=== PATIENT | male | born 1950 | race Caucasian/White ===

== ENCOUNTER → 2017-10-07 11:28 | Outpatient (CLI) | payer MEDICARE, SELFPAY ==
--- NOTE | 2017-10-07 | DI.MRI.S_ITS ---
PROCEDURE: MR ABDOMEN WO/W CON INDICATIONS: 67-year-old male with hepatocellular carcinoma status post treatment. TECHNIQUE: Coronal HASTE, axial 2D FLASH in- and [id number]; axial breath-hold T2 FSE. Dynamic axial VIBE during the administration of contrast; post-contrast coronal VIBE or 2D FLASH with fat saturation from the hepatic dome to the iliac crests. Optional diffusion weighted imaging and ADC may be performed. COMPARISON: Outside Facility, RG, MRI ABDOMEN W/W/O CONTRAST, 05/07/2017, 12:17. Outside Facility, RG, MRI ABDOMEN W/W/O CONTRAST, 01/08/2017, 10:26. Outside Facility, RG, MRI ABDOMEN W/W/O CONTRAST, 10/02/2016, 8:14. FINDINGS: Image quality: Several sequences are degraded by respiratory motion. Lung bases: No basal pleural effusions. Heart size is normal. Solid organs: Liver is normal in size, without fatty infiltration on in and out of phase images. There is mild capsular scalloping consistent with cirrhosis. 2.7 x 2.1 cm subcapsular anterior left hepatic lobe lesion in segment 4A/4B is unchanged in appearance with overlying capsular retraction, demonstrating no suspicious internal nodular enhancement on dynamic images. There is surrounding amorphous progressive enhancement on delayed images, presumably from post treatment fibrosis. No new hypervascular or hypovascular lesions elsewhere in the liver. Gallbladder contains a 9 mm dependent gallstone. Biliary system is non dilated. Pancreas is normal in morphology. Moderate splenomegaly is not significantly changed, measuring 16.4 cm in craniocaudal dimensions. No adrenal nodules. Both kidneys demonstrate normal size and symmetric enhancement, without hydronephrosis. 9 mm posterior left renal cortical exophytic cyst is incidentally noted. Nodes and vessels: No retroperitoneal or mesenteric adenopathy by size criteria. Aorta and inferior vena cava are normal in size. Portal and splenic veins appear patent and normal in caliber, without intraluminal thrombus. Bowel and peritoneum: Unenhanced bowel loops are normal in caliber. No free fluid. Bones and soft tissues: No ventral hernias. Bone marrow is normal in overall signal. IMPRESSION: 1. 2.7 x 2.1 cm anterior left hepatic lobe segment 4A/4B lesion is not significantly changed, demonstrating no suspicious internal nodular enhancement to suggest local tumor recurrence. ACR LI-RADS TR (treatment response) nonviable: Consider continued followup with liver protocol pre- and post contrast MRI in 3-6 months. 2. Moderate splenomegaly is unchanged, consistent with portal hypertension. 3. 9 mm dependent gallstone. Dictated by: Mart Rodriguez M.D. on 10/13/2017 at 15:07 Approved by: Mart Rodriguez M.D. on 10/13/2017 at 15:27
== END ==
PROVIDERS: Visit Provider Family Medicine
DX: C22.0 Liver cell carcinoma (principal); K76.6 Portal hypertension; K80.80 Other cholelithiasis without obstruction
CPT/HCPCS: 74183; A9579

== ENCOUNTER 2018-03-12 15:24 | Emergency (ER) | payer MEDICARE, SELFPAY ==
[2018-03-12 15:27] VITALS: BP 165/76; PULSE 58; RESP 14; TEMP 36.4; O2SAT 96; BMI 39.6
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
--- NOTE | 2018-03-12 16:08 | DI.US.S_ITS ---
PROCEDURE: US PERIPH VENOUS LOW EXTREM RT INDICATIONS: posterior medial ankle pain, r/o DVT TECHNIQUE: Real-time imaging, as well as color and pulse Doppler interrogation, were performed of the lower extremity deep veins from the inguinal ligament to the popliteal fossa. COMPARISON: None. FINDINGS: The deep veins are normally compressible, and free of intraluminal thrombus. Color and pulse Doppler demonstrate normal phasic intraluminal flow. There is normal augmentation response to distal compression maneuver. IMPRESSION: Negative for deep venous thrombosis. Note: Concordant preliminary findings given by the linter drier operator upon the completion of the examination to Svitlana Abdi PA-C at 1715 hrs. [place] time on March 12, 2018. Dictated by: Chris Wiley M.D. on 03/12/2018 at 16:19 Approved by: Chris Wiley M.D. on 03/12/2018 at 16:22
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
[2018-03-12 17:22] VITALS: BP 168/78; PULSE 60; RESP 18; TEMP 37.2; O2SAT 97
--- NOTE | 2018-03-15 13:48 | PC.NURSE ---
Called patient in follow up. Pt has no concerns or questions. Feels improved. Encouraged to f/u as needed and indicated and return for any difficulty or concerns. Encouraged to f/u as needed and indicated and return for any needs.
== END 2018-03-12 18:12 | disposition home or self-care (01) ==
PROVIDERS: Emergency Provider Internal Medicine
DX: I87.301 Chronic venous hypertension (idiopathic) without complications of right lower extremity (principal); M79.671 Pain in right foot
CPT/HCPCS: 73630; 93971; 99282; 99284

== ENCOUNTER → 2018-05-28 12:37 | Outpatient (CLI) | payer MEDICARE, SELFPAY ==
--- NOTE | 2018-05-28 | DI.MRI.S_ITS ---
PROCEDURE: MR ABDOMEN WO/W CON INDICATIONS: Liver cell carcinoma TECHNIQUE: Coronal HASTE, axial 2D FLASH in- and [id number]; axial breath-hold T2 FSE. Dynamic axial VIBE during the administration of contrast; post-contrast coronal VIBE or 2D FLASH with fat saturation from the hepatic dome to the iliac crests. Optional diffusion weighted imaging and ADC may be performed. COMPARISON: None. FINDINGS: Image quality: Excellent. Lung bases: No basal pleural effusions. Heart size is normal. Solid organs: The liver is nodular in contour with heterogeneous appearance of the hepatic parenchyma consistent with cirrhosis. There is a small oval region of T2 hypointensity and mild T1 hyperintensity involving segment 4A/4B measuring approximately 2.7 x 1.8 cm in transverse dimension by 2.5 cm in craniocaudal dimension. Following contrast administration, there is no evidence of internal enhancement. There is adjacent mild vascular shunting within the hepatic parenchyma without discreet masslike components or suspicious areas of washout. Elsewhere the liver, no new mass lesions or suspicious washout identified. The spleen is enlarged, measuring 16.8 cm consistent with portal hypertension. There is a small nonenhancing filling defect in the region of the gallbladder neck compatible with a gallstone. No wall thickening or pericholecystic fluid to suggest cholecystitis. Biliary system is non dilated. Pancreas is normal in morphology. No adrenal nodules. Kidneys demonstrate no hydronephrosis. Nodes and vessels: No retroperitoneal or mesenteric adenopathy by size criteria. Aorta and inferior vena cava are normal in size. There are gastroesophageal and splenic varices as well as a recanalized paraumbilical vein consistent with portal hypertension. Bowel and peritoneum: Visualized bowel loops are normal in caliber. No free fluid. Bones and soft tissues: No ventral hernias. Bone marrow is normal in overall signal. IMPRESSION: 1. Post treatment changes redemonstrated in segment 4 of the left hepatic lobe without evidence of recurrent disease. 2. Nodular cirrhotic liver redemonstrated without evidence of a new hepatoma. 3. Findings consistent of portal hypertension redemonstrated including splenomegaly, gastroesophageal splenic varices, and a recanalized paraumbilical vein. Dictated by: Naren Anglin M.D. on 05/28/2018 at 14:56 Approved by: Naren Anglin M.D. on 05/28/2018 at 15:36
== END ==
PROVIDERS: PCP Radiology Diagnostic Radiology; Visit Provider Radiology Diagnostic Radiology
DX: C22.0 Liver cell carcinoma (principal); K76.6 Portal hypertension; K74.60 Unspecified cirrhosis of liver; I86.4 Gastric varices; I86.8 Varicose veins of other specified sites; R16.1 Splenomegaly, not elsewhere classified
CPT/HCPCS: 74183; A9579

== ENCOUNTER 2020-03-09 08:48 | Emergency (ER) | payer MEDICARE, SELFPAY ==
[2020-03-09] VITALS (20 sets, daily range): BP systolic 155–173; BP diastolic 67–79; PULSE 52–69; RESP 16–27; TEMP 36.7; O2SAT 93–97; BMI 44.3
--- NOTE | 2020-03-09 09:19 | DI.RAD.S_ITS ---
PROCEDURE: XR CHEST 2V INDICATIONS: shortness of breath TECHNIQUE: 2 views of the chest were acquired. COMPARISON: None. FINDINGS: Surgical changes and devices: None. Lungs and pleura: Minimal blunting of the posterior costophrenic angles can be seen. Generalized interstitial prominence is seen. No focal infiltrates are seen. Low lung volumes are noted. This causes a crowded appearance to the lung markings and limits evaluation. Mediastinum: Mediastinal contours are normal. Heart size is at the upper limits of normal. Bones and chest wall: No suspicious bony abnormalities. Age-appropriate bony degenerative changes are seen. Soft tissues appear unremarkable. IMPRESSION: Interstitial prominence and trace bilateral pleural effusions. The heart size is at the upper limits of normal. Please correlate with patient presentation, physical examination findings, and laboratory values for congestive heart failure. Dictated by: Chris Wiley M.D. on 03/09/2020 at 8:44 Approved by: Chris Wiley M.D. on 03/09/2020 at 8:46
[2020-03-09 09:27] LABS: Add Manual Diff / Slide Review NO; Basophils Absolute Auto 0 /uL (0-100); Basophils Percent Auto 0.4 % (0-2); Eosinophils Absolute Auto 100 /uL (0-450); Eosinophils Percent Auto 4.6 % (2-4); Hematocrit 41.9 % (41-53); Hemoglobin 13.7 g/dL (13.5-17.5); Lymphocytes Absolute Auto 600 /uL (1100-4500); Lymphocytes Percent Auto 19.3 % (25-40); Mean Corpuscular HGB Conc 32.7 % (30-36); Mean Corpuscular Hemoglobin 26.9 PG (26-34); Mean Corpuscular Volume 82.3 fL (80-100); Monocytes Absolute Auto 300 /uL (0-900); Monocytes Percent Auto 11.6 % (3-14); Neutrophils Absolute Auto 1900 /uL (1500-7000); Neutrophils Percent Auto 64.1 % (50-75); Platelet Count 61 X10^3/uL (150-400); Red Blood Cell Count 5.09 X10^6/uL (4.5-5.9); White Blood Cell Count 2.9 X10^3/uL (4.5-11.0)
--- NOTE | 2020-03-09 09:27 | PC.NURSE ---
pt has hx of Liver CA for 5 years with cirrhosis, here with new onset ascites over the past month which is causing increasing SOB and weight gain, 20# in the last month
[2020-03-09 09:33] LABS: Alanine Aminotransferase 46 IU/L (<50); Albumin Globulin Ratio 1.3 (1.0-2.8); Alkaline Phosphatase 67 U/L (38-126); Aspartate Aminotransferase 69 IU/L (17-59); BUN Creatinine Ratio 27.8 (6-22); Bilirubin Total 1.3 mg/dL (0.2-1.3); Blood Urea Nitrogen 22 mg/dL (9-20); Calcium 9.7 mg/dL (8.4-10.2); Carbon Dioxide 38 mmol/L (22-32); Chloride 103 mmol/L (98-107); Estimated Glomerular Filt Rate > 60.0 mL/min (>60); Globulin 3.1 g/dL (1.7-4.1); Glucose 64 mg/dL (80-110); HEMOLYSIS < 15 (0-50); Sodium 142 mmol/L (137-145); Total Protein 7.1 g/dL (6.3-8.2)
--- NOTE | 2020-03-09 09:33 | DI.CT.S_ITS ---
PROCEDURE: CT CHEST ABD PEL W CON INDICATIONS: ascites with hepatocellular carcinoma and sob TECHNIQUE: After the administration of intravenous contrast, 5 mm thick sections acquired from the lung apices to the symphysis. 5 mm coronal and sagittal reformats were performed, with additional 7 mm MIP reformats through the lungs. For radiation dose reduction, the following was used: automated exposure control, adjustment of mA and/or kV according to patient size. COMPARISON: [facility], , MR ABDOMEN LIVER PROTOCOL, 01/09/2020, 12:28. FINDINGS: Image quality: Excellent. CHEST: Lungs and pleura: No acute airspace opacities. Minimal bibasilar dependent change. No pleural effusions or pneumothorax. Central and peripheral airways appear patent and normal in caliber. Mediastinum: Heart size is normal. No pericardial effusion. Coronary artery calcifications. No mediastinal or hilar adenopathy by size criteria. Thoracic aorta and central pulmonary arteries are normal in size. Esophagus is normal in caliber. No hiatal hernia. Chest wall: No axillary or supraclavicular adenopathy by size criteria. Thyroid gland is unremarkable as visualized. ABDOMEN: Solid organs: Diffuse cirrhotic change of the liver. Hypodensity in the anterior segment 4A/4 B tumor ablation site. This has been described is stable over multiple studies, and is not significantly changed in size from the most recent prior MRI. Gallbladder contains tiny stones.. Biliary system is non dilated. Pancreas enhances normally. Splenomegaly. No adrenal nodules. Kidneys demonstrate normal size and enhancement, without hydronephrosis. Peritoneum and bowel: Bowel loops demonstrate normal wall thickness and caliber. Mild abdominal and pelvic ascites. Nodes and vessels: No retroperitoneal or mesenteric adenopathy by size criteria. Aorta and inferior vena cava are normal in size. There are perisplenic varicosities and evidence of a spontaneous splenorenal shunt. Miscellaneous: No ventral hernias. PELVIS: Genitourinary: Bladder wall thickness is normal. Miscellaneous: No inguinal hernias or adenopathy. Bones: No suspicious bony lesions. No vertebral body compression fractures. IMPRESSION: 1. No evidence acute pulmonary process. 2. Cirrhosis. 3. Stable size of previously treated liver lesion. 4. Mild ascites. 5. Splenomegaly. 6. Varicosities with spontaneous splenorenal shunt. 7. Coronary artery disease. Dictated by: Christopher Sanchez M.D. on 03/09/2020 at 10:46 Approved by: Christopher Sanchez M.D. on 03/09/2020 at 10:56
[2020-03-09 09:34] LABS: Lactate (Lactic Acid) 1.4 mmol/L (0.7-2.1)
--- NOTE | 2020-03-09 09:44 | ED.SOB ---
HPI - SOB/Dyspnea General Chief Complaint: Shortness of Breath/Dyspnea Stated Complaint: ascites Time Seen by Provider: 03/09/20 09:05 Source: patient Mode of arrival: Ambulatory Limitations: no limitations History of Present Illness HPI Narrative: Patient is a 69-year-old male with history of hepatocellular carcinoma, diabetes presenting with 1 month of worsening shortness of breath. He says it is worse with exertion and when he leans forward. He has noticed 20 lb weight gain over the last 1 month as well in his abdomen feels tight. He denies any chest pain fever or cough. He was sent over from the located within [facility] concern for ascites. He also complains of difficulty emptying his bladder. He says it is getting harder. He says he is able to go the does not feel like it is emptying properly. MD Complaint: shortness of breath Related Data Home oxygen amount: none Home Medications Medication Instructions Recorded Confirmed Vitamin C 1 tab PO DAILY 03/12/18 02/09/20 diphenhydramine HCl [Benadryl] 1 cap PO QPM PRN 03/12/18 02/09/20 insulin glargine [Lantus U-100 100 units SUBCUT QPM 03/12/18 02/09/20 Insulin] melatonin 1 tab PO BEDTIME PRN 03/12/18 02/09/20 metformin 500 mg PO BID 03/12/18 02/09/20 pioglitazone 30 mg PO DAILY 03/12/18 02/09/20 insulin lispro 100 unit/mL 50 unit SUBCUT BID ml 02/09/20 02/09/20 subcutaneous solution naproxen sodium 220 mg capsule 440 mg PO DAILY PRN cap 02/09/20 02/09/20 Previous Rx's Medication Instructions Recorded furosemide [Lasix] 40 mg PO DAILY #3 tab 03/09/20 Allergies Allergy/AdvReac Type Severity Reaction Status Date / Time [id number] Reductase AdvReac Intermediate Muscle Verified 02/09/20 14:00 Inhibitor Pain. Itchiness Review of Systems Review of Systems ROS Unobtainable: All systems reviewed & are unremarkable except as noted in HPI and below Constitutional Constitutional: Denies chills, Denies fever(s), Denies lethargy and Denies weakness Eyes Eyes: Denies change in vision, Denies eye discharge, Denies irritation and Denies loss of vision ENT Ears, Nose, Mouth, and Throat: Denies neck pain Cardiovascular Cardiovascular: Denies chest pain, Denies irregular heart rhythm, Denies lightheadedness, Denies palpitations and Denies orthopnea Respiratory Respiratory: Reports as per HPI Gastrointestinal Gastrointestinal: Denies constipation and Denies nausea Musculoskeletal Musculoskeletal: Denies myalgias and Denies neck pain Integumentary/Breasts Skin/Breast: Denies pruritus, Denies erythema, Denies rash and Denies wounds Neurologic Neurologic: Denies loss of vision and Denies weakness Endocrine Endocrine: Denies palpitations Patient History Medical History (Updated 03/09/20 @ 13:28 by Dinora Willingham DO) Calculus of gallbladder and bile duct w/o cholecystitis or obstruction (Chronic) Cataracts, bilateral (Chronic) Cirrhosis, non-alcoholic (Chronic) Class 2 obesity (Chronic) Diabetes type 2, controlled (Chronic) Diabetic polyneuropathy (Chronic) Diastasis recti (Chronic) Hepatocellular carcinoma (Chronic) Hypertension (Resolved) Iron deficiency anemia (Chronic) Major depression in remission (Resolved) Microalbuminuria due to type 2 diabetes mellitus (Chronic) RICARDO (obstructive sleep apnea) (Chronic) Thoracic radiculitis (Chronic) Thrombocytopenia (Chronic) 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 HEENT: Head atraumatic,EOMI, pupils reactive, face symmetric, moist mucous membranes CARDIOVASCULAR: Regular rate and rhythm without murmurs, rubs or gallops. RESPIRATORY: Breath sounds equal bilaterally, no wheezes rales or rhonchi. ABDOMEN: Abdomen is tight and distended EXTREMITIES: Normal range of motion, no clubbing or edema. Neurovascularly intact NEUROLOGICAL: Alert and oriented x4.Normal gait and speech. Cranial nerves II through XII grossly intact. SKIN: Warm, dry, no laceration, no petechiae, no rashes or lesions. Course Orders Ordered: ED Orders 03/09/20 09:10 Complete Blood Count AUTO DIFF Stat Comprehensive Metabolic Panel Stat Lactate (Lactic Acid) Stat NT-proBNP (BNP-Adult 18+) Stat Partial Thromboplastin Time Stat Prothrombin Time INR Stat Troponin & CK Cardiac Panel Stat 03/09/20 09:19 XR chest 2V Stat EKG-12 Lead Stat Measure peak expiratory flow ONCE RT Consult Eval and Treat Now 03/09/20 09:33 CT chest abd pel w con Stat 03/09/20 11:55 COVID19 -ED/INPAT/OR/L&D Stat Discontinued Medications Furosemide (Lasix) 40 mg IV NOW ONE Stop: 03/09/20 11:45 Last Admin: 03/09/20 11:50 Dose: 40 mg Documented by: YOLI Consultations Time: 13:01 Vital Signs Vital signs: Vital Signs - 8 hr 03/09/20 08:58 03/09/20 09:02 03/09/20 09:03 Temperature 98.1 F Pulse Rate 69 54 L 54 L Respiratory Rate 18 19 24 Blood Pressure 166/77 H 167/79 H Pulse Oximetry 93 03/09/20 09:30 03/09/20 10:00 03/09/20 10:04 Temperature Pulse Rate 57 L 52 L 52 L Respiratory Rate 27 H 21 23 Blood Pressure 155/67 H Pulse Oximetry 95 95 95 03/09/20 10:43 03/09/20 10:44 03/09/20 11:00 Temperature Pulse Rate 60 58 L 56 L Respiratory Rate Blood Pressure 165/75 H Pulse Oximetry 96 97 96 03/09/20 11:30 03/09/20 11:31 03/09/20 12:00 Temperature Pulse Rate 55 L 56 L 57 L Respiratory Rate 24 22 23 Blood Pressure 166/73 H Pulse Oximetry 96 96 97 03/09/20 12:01 03/09/20 12:30 03/09/20 12:31 Temperature Pulse Rate 59 L 60 60 Respiratory Rate 25 H 16 16 Blood Pressure 173/77 H 172/74 H Pulse Oximetry 97 95 95 03/09/20 13:00 03/09/20 13:01 03/09/20 13:27 Temperature Pulse Rate 56 L 60 Respiratory Rate 23 21 18 Blood Pressure 158/70 H Pulse Oximetry 97 97 97 03/09/20 13:30 03/09/20 13:31 Temperature Pulse Rate 57 L 54 L Respiratory Rate 22 25 H Blood Pressure 160/71 H Pulse Oximetry 96 97 MDM - SOB/Dyspnea Lab Data Attestation: I reviewed the patient's lab results. Result diagrams: 03/09/20 09:10 03/09/20 09:10 Labs: Lab Results 03/09/20 03/09/20 03/09/20 Range/Units 09:10 09:10 09:10 WBC 2.9 L (4.5-11.0) X10^3/uL RBC 5.09 (4.5-5.9) X10^6/uL Hgb 13.7 (13.5-17.5) g/dL Hct 41.9 (41-53) % MCV 82.3 (80-100) fL MCH 26.9 (26-34) PG MCHC 32.7 (30-36) % RDW 16.0 H (11.6-14.8) % Plt Count 61 L (150-400) X10^3/uL Neut % (Auto) 64.1 (50-75) % Lymph % (Auto) 19.3 L (25-40) % [place] % (Auto) 11.6 (3-14) % Eos % (Auto) 4.6 H (2-4) % Baso % (Auto) 0.4 (0-2) % Neut # (Auto) 1900 (1049-5247) /uL Lymph # (Auto) 600 L (3615-8445) /uL [place] # (Auto) 300 (0-900) /uL Eos # (Auto) 100 (0-450) /uL Baso # (Auto) 0 (0-100) /uL PT (10.1-12.7) SECONDS INR (0.9-1.3) APTT (26.4-36.2) SECONDS Sodium 142 (137-145) mmol/L Potassium 4.0 (3.4-5.1) mmol/L Chloride 103 (98-107) mmol/L Carbon Dioxide 38 H (22-32) mmol/L BUN 22 H (9-20) mg/dL Creatinine 0.79 (0.66-1.25) mg/dL Estimated GFR > 60.0 (>60) mL/min BUN/Creatinine Ratio 27.8 H (6-22) Glucose 64 L (80-110) mg/dL Lactate 1.4 (0.7-2.1) mmol/L Calcium 9.7 (8.4-10.2) mg/dL Total Bilirubin 1.3 (0.2-1.3) mg/dL AST 69 H (17-59) IU/L ALT 46 (<50) IU/L Alkaline Phosphatase 67 (38-126) U/L Total Creatine Kinase (55-170) U/L CK-MB (CK-2) (<2.37) ng/mL CK-MB (CK-2) Rel Index (1.5-5.0) % Troponin I (0.01-0.034) ng/mL NT-Pro-B Natriuret Pep (<125) pg/mL Total Protein 7.1 (6.3-8.2) g/dL Albumin 4.0 (3.5-5.0) g/dL Globulin 3.1 (1.7-4.1) g/dL Albumin/Globulin Ratio 1.3 (1.0-2.8) COVID-19 PCR (Negative) 03/09/20 03/09/20 03/09/20 Range/Units 09:10 09:10 11:55 WBC (4.5-11.0) X10^3/uL RBC (4.5-5.9) X10^6/uL Hgb (13.5-17.5) g/dL Hct (41-53) % MCV (80-100) fL MCH (26-34) PG MCHC (30-36) % RDW (11.6-14.8) % Plt Count (150-400) X10^3/uL Neut % (Auto) (50-75) % Lymph % (Auto) (25-40) % [place] % (Auto) (3-14) % Eos % (Auto) (2-4) % Baso % (Auto) (0-2) % Neut # (Auto) (5152-6825) /uL Lymph # (Auto) (2156-2898) /uL [place] # (Auto) (0-900) /uL Eos # (Auto) (0-450) /uL Baso # (Auto) (0-100) /uL PT 13.9 H (10.1-12.7) SECONDS INR 1.2 (0.9-1.3) APTT 39 H (26.4-36.2) SECONDS Sodium (137-145) mmol/L Potassium (3.4-5.1) mmol/L Chloride (98-107) mmol/L Carbon Dioxide (22-32) mmol/L BUN (9-20) mg/dL Creatinine (0.66-1.25) mg/dL Estimated GFR (>60) mL/min BUN/Creatinine Ratio (6-22) Glucose (80-110) mg/dL Lactate (0.7-2.1) mmol/L Calcium (8.4-10.2) mg/dL Total Bilirubin (0.2-1.3) mg/dL AST (17-59) IU/L ALT (<50) IU/L Alkaline Phosphatase (38-126) U/L Total Creatine Kinase 229 H (55-170) U/L CK-MB (CK-2) 4.22 H (<2.37) ng/mL CK-MB (CK-2) Rel Index 1.8 (1.5-5.0) % Troponin I < 0.012 (0.01-0.034) ng/mL NT-Pro-B Natriuret Pep 105 (<125) pg/mL Total Protein (6.3-8.2) g/dL Albumin (3.5-5.0) g/dL Globulin (1.7-4.1) g/dL Albumin/Globulin Ratio (1.0-2.8) COVID-19 PCR Negative (Negative) Point of Care Testing Glucose POC [address] scan - abdomen/pelvis: Radiologist's Impression: PROCEDURE: CT CHEST ABD PEL W CON INDICATIONS: ascites with hepatocellular carcinoma and sob TECHNIQUE: After the administration of intravenous contrast, 5 mm thick sections acquired from the lung apices to the symphysis. 5 mm coronal and sagittal reformats were performed, with additional 7 mm MIP reformats through the lungs. For radiation dose reduction, the following was used: automated exposure control, adjustment of mA and/or kV according to patient size. COMPARISON: [facility], MR, MR ABDOMEN LIVER PROTOCOL, 01/09/2020, 12:28. FINDINGS: Image quality: Excellent. CHEST: Lungs and pleura: No acute airspace opacities. Minimal bibasilar dependent change. No pleural effusions or pneumothorax. Central and peripheral airways appear patent and normal in caliber. Mediastinum: Heart size is normal. No pericardial effusion. Coronary artery calcifications. No mediastinal or hilar adenopathy by size criteria. Thoracic aorta and central pulmonary arteries are normal in size. Esophagus is normal in caliber. No hiatal hernia. Chest wall: No axillary or supraclavicular adenopathy by size criteria. Thyroid gland is unremarkable as visualized. ABDOMEN: Solid organs: Diffuse cirrhotic change of the liver. Hypodensity in the anterior segment 4A/4 B tumor ablation site. This has been described is stable over multiple studies, and is not significantly changed in size from the most recent prior MRI. Gallbladder contains tiny stones.. Biliary system is non dilated. Pancreas enhances normally. Splenomegaly. No adrenal nodules. Kidneys demonstrate normal size and enhancement, without hydronephrosis. Peritoneum and bowel: Bowel loops demonstrate normal wall thickness and caliber. Mild abdominal and pelvic ascites. Nodes and vessels: No retroperitoneal or mesenteric adenopathy by size criteria. Aorta and inferior vena cava are normal in size. There are perisplenic varicosities and evidence of a spontaneous splenorenal shunt. Miscellaneous: No ventral hernias. PELVIS: Genitourinary: Bladder wall thickness is normal. Miscellaneous: No inguinal hernias or adenopathy. Bones: No suspicious bony lesions. No vertebral body compression fractures. IMPRESSION: 1. No evidence acute pulmonary process. 2. Cirrhosis. 3. Stable size of previously treated liver lesion. 4. Mild ascites. 5. Splenomegaly. 6. Varicosities with spontaneous splenorenal shunt. 7. Coronary artery disease. Dictated by: Christopher Sanchez M.D. on 03/09/2020 at 10:46 Chest x-ray: Radiologist's Impression: PROCEDURE: XR CHEST 2V INDICATIONS: shortness of breath TECHNIQUE: 2 views of the chest were acquired. COMPARISON: None. FINDINGS: Surgical changes and devices: None. Lungs and pleura: Minimal blunting of the posterior costophrenic angles can be seen. Generalized interstitial prominence is seen. No focal infiltrates are seen. Low lung volumes are noted. This causes a crowded appearance to the lung markings and limits evaluation. Mediastinum: Mediastinal contours are normal. Heart size is at the upper limits of normal. Bones and chest wall: No suspicious bony abnormalities. Age-appropriate bony degenerative changes are seen. Soft tissues appear unremarkable. IMPRESSION: Interstitial prominence and trace bilateral pleural effusions. The heart size is at the upper limits of normal. Please correlate with patient presentation, physical examination findings, and laboratory values for congestive heart failure. Dictated by: Chris Wiley M.D. on 03/09/2020 at 8:44 ECG Data Attestation: I personally reviewed and interpreted this ECG as follows: Prior ECG tracings: not available for review Interpretation: Normal sinus rhythm rate 53 p.r. interval 212 QRS 88 QTC [address] changes no priors to compare MDM Narrative Medical decision making narrative: Current differential it is [facility] verses ascites. His abdomen is actually quite firm. It CT shows only mild ascites. BNP is 100 he is satting 93-97%. His ambulation trial he did well. He responded well to Lasix. Previous nuclear stress test in July of 2019 showed an EF of 77%. I discussed case with Dr. Tovar who at this time request patient be followed up as an outpatient with Lasix and in outpatient echocardiogram. Patient understands and agrees with this plan and also agrees to return to the ED as needed I discussed all findings with the patient , Education has been performed regarding treatment plan, diagnosis, warning signs and symptoms and all concerns have been addressed. Verbally agree with and understood all of the above. Discharge Plan Departure Patient Disposition: Home Clinical Impression: Congestive heart failure Qualifiers: Heart failure type: unspecified Heart failure chronicity: acute Qualified Code(s): I50.9 - Heart failure, unspecified Discharge Date/Time: 03/09/20 13:53 Instructions: DI for Heart Failure Activity Restrictions/Additional Instructions: *You have been diagnosed with congestive heart failure *What to do: At this time I believe her abdominal distention is due to water retention secondary to congestive heart failure. However you do need an echocardiogram to confirm this. I have spoken with Dr. Tovar, Dr. Glaser his partner who should be scheduling you and echocardiogram for next week *Continue to take medications as directed Lasix 40 mg once a day for the next 3 days-start tomorrow *Follow up with your primary care provider in 2-3 days *Return to ER if you should have increasing shortness of breath, chest pain or any new, worsening or concerning symptoms Prescriptions: New furosemide [Lasix] 40 mg tablet 40 mg PO DAILY Qty: 3 RF: 0 No Action insulin lispro 100 unit/mL solution 50 unit SUBCUT BID RF: 0 naproxen sodium 220 mg capsule 440 mg PO DAILY PRNRF: 0 metformin 500 mg tablet 500 mg PO BID RF: 0 insulin glargine [Lantus U-100 Insulin] 100 unit/mL solution 100 units subcut QPM RF: 0 diphenhydramine HCl [Benadryl] 25 mg Capsule 1 cap PO QPM PRN (Reason: Sleep) RF: 0 pioglitazone 30 mg tablet 30 mg PO DAILY RF: 0 Vitamin C 1 tab PO DAILY RF: 0 melatonin 1 tab PO BEDTIME PRN (Reason: Sleep) RF: 0 Referrals: Christian Glaser MD [Primary Care Provider] -
[2020-03-09 11:21] LABS: INR 1.2 (0.9-1.3); Prothrombin Time 13.9 SECONDS (10.1-12.7)
[2020-03-09 11:23] LABS: PTT Partial Thromboplastin Tim 39 SECONDS (26.4-36.2)
[2020-03-09 11:24] LABS: Creatine Kinase 229 U/L (55-170)
[2020-03-09 11:37] LABS: NT-proBNP (BNP-Adult 18+) 105 pg/mL (<125); Troponin I < 0.012 ng/mL (0.01-0.034)
[2020-03-09 11:40] LABS: CKMB % Relative Index 1.8 % (1.5-5.0); Creatine Kinase MB 4.22 ng/mL (<2.37)
[2020-03-09] MEDS: FUROSEMIDE 40 MG/4 ML VIAL IV (11:50)
[2020-03-09 12:30] LABS: COVID19 -Nasal RAPID Negative (Negative)
== END 2020-03-09 13:53 | disposition home or self-care (01) ==
PROVIDERS: Emergency Provider Emergency Medicine; PCP Internal Medicine
DX: I50.9 Heart failure, unspecified (principal); R06.02 Shortness of breath; R18.8 Other ascites
CPT/HCPCS: 36415; 71046; 71260; 74177; 80053; 82550; 82553; 82962; 83605; 83880; 84484; 85025; 85610; 85730; 87635; 93005; 93010; 96374; 99284; J1940

== ENCOUNTER → 2020-04-02 14:11 | Outpatient (CLI) | payer MEDICARE, SELFPAY ==
--- NOTE | 2020-04-02 14:13 | DI.ECHO.S_ITS ---
[facility] +---------+ : : [address] : : : : [id number] : : : : Phone: [phone]+ Echocardiogram Report + + :Name: JUNA CARLOS COFFEY Study Date: 04/02/2020 Height: 72 in : :[facility] Weight: 315 lb : : Gender: Male BSA: 2.6 m2 : :: 1950 Age: 69 yrs BP: 178/91 mmHg: :Reason For Study: SHORTNESS OF BREATH : :Ordering Physician: AARON ALVARADOPerformed By: Kylah Deluna : :Referring: AARON ALVARADO : + + Interpretation Summary Mild concentric left ventricular hypertrophy with hyperdynamic function and ejection fraction 70-75%. The aortic valve is mildly calcified. Mild mitral annular calcification. No valvular regurgitation. Low intravascular volume. Procedure: A two-dimensional transthoracic echocardiogram with color flow and Doppler was performed. The study quality was technically adequate. There is no prior echocardiogram noted for this patient. The patient was in sinus rhythm with heart rates between 64-78 bpm during the exam. Left Ventricle: The left ventricle is normal in size and wall thickness. There is mild concentric left ventricular hypertrophy. The left ventricle is hyperdynamic. The ejection fraction is estimated to be 70-75%. There are no focal wall motion abnormalities. Right Ventricle: The right ventricle is normal in size and function. Atria: Both atria are normal in size. There is no Doppler evidence for an interatrial shunt. Mitral Valve: The mitral valve is normal in structure and function. There is mild mitral annular calcification. There is trace mitral regurgitation. Aortic Valve: The aortic valve is mildly calcified. The aortic valve is trileaflet. The peak aortic velocity is 3.0 m/sec. The aortic valve mean gradient is 20 mmHg. The calculated aortic valve area is 2.0 cm2. No aortic regurgitation is present. Tricuspid Valve: The tricuspid valve is normal in structure and function. There is trace tricuspid regurgitation. Pulmonary artery pressures cannot be estimated because of the lack of a measurable TR jet velocity but the IVC suggests a CVP of around 3 mmHg. Pulmonic Valve: The pulmonic valve is not well seen, but is grossly normal. There is no pulmonic valvular regurgitation. Great Vessels: The aortic root is normal size. The dimensions of the ascending aorta are normal. The IVC is of normal diameter and collapses greater than 50% with a sniff. This suggests a low right atrial pressure of 3 mm Hg. Pericardium/ Pleura There is no pericardial effusion. There is no pleural effusion. MMode/2D Measurements & Calculations LVIDd: 4.9 cm LVOT diam: 2.3 cm LVIDs: 3.1 cm Ao root diam: 3.4 cm FS: 36.5 % asc Aorta Diam: 3.3 cm EPSS: 0.78 cm Ao Arch Diam (Prox Trans): 3.1 cm IVSd: 1.2 cm LVPWd: 1.1 cm LV xavier. diameter/BSA (cm/m^2): 1.9 LV sys. diameter/BSA (cm/m^2): 1.2 LA A2 area: 24.2 cm2 RA long axis: 5.1 cm LA A4 area: 18.4 cm2 RA area: 15.3 cm2 LA length (vol): 5.2 cm RA vol: 39.1 ml LA vol: 72.5 ml RA : 15.1 ml/m2 LA vol index: 28.1 ml/m2 IVC diam: 1.5 cm RVD1 (basal): 4.3 cm TAPSE: 2.5 cm Doppler Measurements & Calculations Ao V2 max: 302.1 cm/sec LVOT Max Chris: 147.8 cm/sec Ao V2 mean: 211.4 cm/sec LV V1 max P.7 mmHg Ao max P.6 mmHg LV V1 VTI: 33.7 cm Ao mean P.4 mmHg MARIO(I,D): 2.0 cm2 Ao V2 VTI: 66.2 cm MARIO(V,D): 2.0 cm2 sev ratio: 0.51 MARIO indexed to BSA (cm^2/m^2): 0.79 MV E max chris: 125.9 cm/sec PA V2 max: 93.8 cm/sec MV A max chris: 119.7 cm/sec PA V2 mean: 61.6 cm/sec MV E/A: 1.1 PA mean P.8 mmHg Med Peak E' Chris: 7.4 cm/sec PA pr(Accel): 15.6 mmHg E/E' med: 17.0 Lat Peak E' Chris: 8.0 cm/sec E/E' lat: 15.7 E/e' average: 16.4 MV dec time: 0.27 sec SV(LVOT): 135.4 ml Electronically signed by: Yu Su on Reading Physician:04/04/2020 11:04 AM
== END ==
PROVIDERS: PCP Internal Medicine; Referring Provider Family Medicine; Visit Provider Family Medicine
DX: R06.02 Shortness of breath (principal)
CPT/HCPCS: 93306

== ENCOUNTER → 2020-04-17 16:49 | Outpatient (CLI) | payer MEDICARE, SELFPAY ==
[2020-04-17 17:48] LABS: NT-proBNP (BNP-Adult 18+) 70 pg/mL (<125)
== END ==
PROVIDERS: PCP Internal Medicine; Referring Provider Internal Medicine; Visit Provider Internal Medicine
DX: I50.9 Heart failure, unspecified (principal)
CPT/HCPCS: 36415; 83880

== ENCOUNTER → 2020-04-18 11:54 | Outpatient (CLI) | payer MEDICARE, SELFPAY ==
[2020-04-18 13:09] LABS: Alanine Aminotransferase 39 IU/L (<50); Albumin 3.7 g/dL (3.5-5.0); Albumin Globulin Ratio 1.2 (1.0-2.8); Alkaline Phosphatase 68 U/L (38-126); Aspartate Aminotransferase 75 IU/L (17-59); BUN Creatinine Ratio 28.4 (6-22); Blood Urea Nitrogen 21 mg/dL (9-20); Calcium 9.6 mg/dL (8.4-10.2); Carbon Dioxide 36 mmol/L (22-32); Chloride 103 mmol/L (98-107); Estimated Glomerular Filt Rate > 60.0 mL/min (>60); Globulin 3.1 g/dL (1.7-4.1); Glucose 60 mg/dL (80-110); HEMOLYSIS < 15 (0-50); Potassium 4.2 mmol/L (3.4-5.1); Sodium 142 mmol/L (137-145); Total Protein 6.8 g/dL (6.3-8.2)
[2020-04-18 13:38] LABS: Thyroid Stimulating Hormone 2.13 uIU/mL (0.47-4.68)
== END ==
PROVIDERS: PCP Internal Medicine; Visit Provider Internal Medicine
DX: E11.29 Type 2 diabetes mellitus with other diabetic kidney complication (principal); E11.65 Type 2 diabetes mellitus with hyperglycemia; K74.60 Unspecified cirrhosis of liver; R80.9 Proteinuria, unspecified
CPT/HCPCS: 80053; 84443

== ENCOUNTER → 2020-04-24 12:43 | Outpatient (CLI) | payer MEDICARE, SELFPAY ==
--- NOTE | 2020-04-24 13:46 | DI.CT.S_ITS ---
PROCEDURE: CT ABDOMEN PELVIS W CON INDICATIONS: Edema legs and abd distention TECHNIQUE: After the administration of oral and intravenous contrast, 5 mm thick sections acquired from the diaphragms to the symphysis. 5 mm thick coronal and sagittal reformats were performed. For radiation dose reduction, the following was used: automated exposure control, adjustment of mA and/or kV according to patient size. COMPARISON: [facility], MR, MR ABDOMEN LIVER PROTOCOL, 01/09/2020, 12:28. [facility], CT, CT CHEST ABD PEL W CON, 03/09/2020, 10:14. FINDINGS: Image quality: Excellent. ABDOMEN: Lung bases: There is a small left pleural effusion. Left basilar opacity may be consolidation or atelectasis.. Heart size is normal. Solid organs: Liver demonstrates nodular contour consistent with cirrhosis. There is a vague 2.8 cm hypodense lesion in segment 4, unchanged. Gallbladder contains gallstones. Biliary system is non-dilated. Pancreas enhances normally. Spleen is moderately enlarged. No adrenal nodules. Kidneys are normal in size and enhancement, without hydronephrosis. Peritoneum and bowel: Stomach, small bowel, and colon loops are normal in caliber and wall thickness. There is a moderate amount of stool in colon. Appendix is normal. There is a moderate amount of free fluid. No free air. Nodes and vessels: No retroperitoneal or mesenteric adenopathy. Aorta and inferior vena cava are normal in caliber. Enlarged splenic vein and left renal vein. There are gastric varices and esophageal varices. The CT findings are consistent with portal hypertension. Miscellaneous: No ventral hernias. PELVIS: Genitourinary: Bladder wall thickness is normal. Miscellaneous: No inguinal hernias or adenopathy. Bones: No suspicious bony lesions. No vertebral body compression fractures. Degenerative changes in lumbar spine. IMPRESSION: 1. Cirrhotic liver. 2. Stable hypodense lesion in segment IV. 3. Portal hypertension with prominent venous collaterals in left upper abdomen. 3. Splenomegaly. 4. Small left pleural effusion with left basilar consolidation or atelectasis. 5. Cholelithiasis. Dictated by: Amber Mathias M.D. on 04/24/2020 at 14:47 Approved by: Amber Mathias M.D. on 04/24/2020 at 15:03
== END ==
PROVIDERS: PCP Internal Medicine; Referring Provider Internal Medicine; Visit Provider Internal Medicine
DX: R60.0 Localized edema (principal); R14.0 Abdominal distension (gaseous); K74.60 Unspecified cirrhosis of liver; K76.6 Portal hypertension; K76.9 Liver disease, unspecified; R16.1 Splenomegaly, not elsewhere classified; J90 Pleural effusion, not elsewhere classified; K80.20 Calculus of gallbladder without cholecystitis without obstruction
CPT/HCPCS: 74177; Q9967

== ENCOUNTER → 2020-06-11 15:08 | Outpatient (CLI) | payer MEDICARE, SELFPAY ==
[2020-06-11 16:54] LABS: Hemoglobin A1C% w Est Avg Glu 6.5 % (4.0-6.0)
[2020-06-11 17:28] LABS: Alanine Aminotransferase 42 IU/L (<50); Albumin 3.3 g/dL (3.5-5.0); Albumin Globulin Ratio 1.2 (1.0-2.8); Alkaline Phosphatase 76 U/L (38-126); Aspartate Aminotransferase 85 IU/L (17-59); BUN Creatinine Ratio 30.3 (6-22); Bilirubin Total 1.2 mg/dL (0.2-1.3); Blood Urea Nitrogen 27 mg/dL (9-20); Calcium 9.3 mg/dL (8.4-10.2); Chloride 91 mmol/L (98-107); Estimated Glomerular Filt Rate > 60.0 mL/min (>60); Globulin 2.8 g/dL (1.7-4.1); Glucose 98 mg/dL (80-110); HEMOLYSIS < 15 (0-50); Magnesium 2.5 mg/dL (1.6-2.3); Sodium 134 mmol/L (137-145); Total Protein 6.1 g/dL (6.3-8.2)
[2020-06-11 18:06] LABS: Potassium 2.5 mmol/L (3.4-5.1)
[2020-06-11 18:07] LABS: Carbon Dioxide 42 mmol/L (22-32)
[2020-06-11 18:17] LABS: INR 1.2 (0.9-1.3); Prothrombin Time 13.8 SECONDS (10.1-12.7)
== END ==
PROVIDERS: PCP Internal Medicine; Referring Provider Internal Medicine; Visit Provider Internal Medicine
DX: C22.0 Liver cell carcinoma (principal); E11.65 Type 2 diabetes mellitus with hyperglycemia; D50.9 Iron deficiency anemia, unspecified; D69.6 Thrombocytopenia, unspecified; H26.9 Unspecified cataract; K74.60 Unspecified cirrhosis of liver
CPT/HCPCS: 36415; 80053; 83036; 83735; 85610

== ENCOUNTER 2020-06-16 15:32 | Inpatient (IN) | payer MEDICARE, SELFPAY ==
[2020-06-16] VITALS (10 sets, daily range): BP systolic 138–175; BP diastolic 65–87; PULSE 75–86; RESP 18–22; TEMP 36.4–36.7; O2SAT 90–99; BMI 34.5
--- NOTE | 2020-06-16 16:17 | PC.NURSE ---
patient is being seen for liver failure and is on potassium and diuretics for his chronic sever ascites. He presents with a verbal relay from his pCp of having low potassium. He reports being extremely short of breathe without exertion. His abd is rigid and distended with fluid leaking from his umbilicus. He has + 2 edema on both extremities and
[2020-06-16 16:29] LABS: Add Manual Diff / Slide Review NO; Basophils Absolute Auto 0 /uL (0-100); Basophils Percent Auto 0.2 % (0-2); Eosinophils Absolute Auto 100 /uL (0-450); Eosinophils Percent Auto 2.5 % (2-4); Hematocrit 36.2 % (41-53); Hemoglobin 11.6 g/dL (13.5-17.5); Lymphocytes Absolute Auto 500 /uL (1100-4500); Lymphocytes Percent Auto 14.4 % (25-40); Mean Corpuscular HGB Conc 31.9 % (30-36); Mean Corpuscular Hemoglobin 25.4 PG (26-34); Mean Corpuscular Volume 79.6 fL (80-100); Monocytes Absolute Auto 400 /uL (0-900); Monocytes Percent Auto 11.7 % (3-14); Neutrophils Absolute Auto 2700 /uL (1500-7000); Neutrophils Percent Auto 71.2 % (50-75); Platelet Count 98 X10^3/uL (150-400); Red Blood Cell Count 4.55 X10^6/uL (4.5-5.9); Red Cell Distribution Width 16.4 % (11.6-14.8); White Blood Cell Count 3.8 X10^3/uL (4.5-11.0)
--- NOTE | 2020-06-16 16:30 | ED_ITS ---
HPI - Recheck/Abnormal Lab/Rx General Chief Complaint: Recheck/Abnormal Lab/Rx Stated Complaint: SERIOUS POTASSIUM SHORTAGE Time Seen by Provider: 06/16/20 16:05 Source: patient Mode of arrival: Wheelchair Limitations: no limitations History of Present Illness HPI narrative: Patient is a 69-year-old male with history of hepatocellular carcinoma diabetes a presenting today with hypokalemia. He has been on diuretic s for ascites Lasix and metolazone. He was seen by oncology new 05/31/2020, he had blood work at that time and potassium was found to be 2.4. His he was followed up with Internal Medicine on 06/11/2020 he had repeat blood work potassium 2.5 his at that time. This week he has had increasing shortness of breath increasing weight gain and worsening abdominal distention. In fact he has some seepage from his abdomen. He denies any fever or chills he denies any orthopnea no cough. He feels like his abdomen is more distended than it was previously. He has been taking his medications as prescribed. MD complaint: abnormal lab Related Data Home Medications Medication Instructions Recorded Confirmed Vitamin C 1 tab PO DAILY 03/12/18 06/11/20 diphenhydramine HCl [Benadryl] 1 cap PO QPM PRN 03/12/18 06/11/20 insulin glargine [Lantus U-100 50 units SUBCUT QPM 03/12/18 06/11/20 Insulin] melatonin 1 tab PO BEDTIME PRN 03/12/18 06/11/20 metformin 500 mg PO BID 03/12/18 06/11/20 pioglitazone 30 mg PO DAILY 03/12/18 06/11/20 insulin lispro 100 unit/mL 50 unit SUBCUT BID ml 02/09/20 06/11/20 subcutaneous solution magnesium 250 mg PO DAILY 05/31/20 06/11/20 multivitamin 1 cap DAILY 05/31/20 06/11/20 Previous Rx's Medication Instructions Recorded furosemide 40 mg tablet 40 mg PO DAILY #90 tab 05/04/20 metolazone 2.5 mg tablet 2.5 mg PO DAILY #30 tab 05/04/20 potassium chloride 20 mEq 60 meq PO BID #180 tab 06/11/20 tablet,extended release spironolactone 50 mg tablet 50 mg PO BID #60 tab 06/12/20 Allergies Allergy/AdvReac Type Severity Reaction Status Date / Time Cvadbbn-Oor-Lud Reductase AdvReac Intermediate Muscle Verified 06/11/20 14:38 Inhibitor Pain. Itchiness Review of Systems Review of Systems ROS Unobtainable: All systems reviewed & are unremarkable except as noted in HPI and below Constitutional Constitutional: Denies chills, Denies fever(s), Denies lethargy and Denies weakness Eyes Eyes: Denies change in vision, Denies eye discharge, Denies irritation and Denies loss of vision ENT Ears, Nose, Mouth, and Throat: Denies dizziness Cardiovascular Cardiovascular: Denies chest pain, Denies syncope, Denies irregular heart rhythm, Reports leg edema, Denies lightheadedness, Denies palpitations, Reports dyspnea on exertion and Denies orthopnea Respiratory Respiratory: Denies chest congestion, Denies cough and Reports dyspnea on exertion Gastrointestinal Gastrointestinal: Reports abdominal pain, Denies dyspepsia, Denies diarrhea, Denies nausea and Denies vomiting Musculoskeletal Musculoskeletal: Denies back pain, Denies myalgias and Denies muscle cramps Integumentary/Breasts Skin/Breast: Denies pruritus, Denies erythema, Denies rash and Denies wounds Neurologic Neurologic: Denies dizziness, Denies syncope, Denies loss of vision and Denies weakness Endocrine Endocrine: Denies palpitations Patient History Medical History (Updated 06/16/20 @ 18:18 by Dinora Willingham DO) Calculus of gallbladder and bile duct w/o cholecystitis or obstruction Cataracts, bilateral Cirrhosis, non-alcoholic Class 2 obesity Diabetes type 2, controlled Diabetic polyneuropathy Diastasis recti Hepatocellular carcinoma Hypertension Iron deficiency anemia Major depression in remission Microalbuminuria due to type 2 diabetes mellitus RICARDO (obstructive sleep apnea) Thoracic radiculitis Thrombocytopenia 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 HEENT: Head atraumatic,EOMI, pupils reactive, face symmetric, moist mucous membranes CARDIOVASCULAR: Regular rate and rhythm without murmurs, rubs or gallops. RESPIRATORY: Breath sounds equal bilaterally, no wheezes rales or rhonchi. ABDOMEN: Distension nontender clear seepage, no specific site EXTREMITIES: Normal range of motion, no clubbing. +4 pitting edema. Neurovascularly intact NEUROLOGICAL: Alert and oriented x4.Normal gait and speech. Cranial nerves II through XII grossly intact. SKIN: Warm, dry, no laceration, no petechiae, no rashes or lesions. Course Orders Ordered: ED Orders 06/16/20 15:55 EKG-12 Lead Stat 06/16/20 16:08 Complete Blood Count AUTO DIFF Stat Comprehensive Metabolic Panel Stat Lipase Stat Magnesium Stat NT-proBNP (BNP-Adult 18+) Stat Partial Thromboplastin Time Stat Prothrombin Time INR Stat Troponin & CK Cardiac Panel Stat 06/16/20 16:32 COVID19 Stat 06/16/20 16:34 XR chest 1V Stat 06/16/20 17:44 ABG [Arterial Blood Gas] Stat 06/16/20 18:05 US abdomen limited Stat Potassium Chloride 40 meq/ (Sodium Chloride) 520 mls @ 130 mls/hr IV NOW ONE Stop: 06/16/20 22:05 Last Infusion: 06/16/20 19:25 Dose: 0 mls/hr Documented by: BUFFY Cosigned by: ANDERSON Admin: 06/16/20 18:31 Dose: 130 mls/hr Documented by: BUFFY Cosigned by: CHAN Discontinued Medications Furosemide (Furosemide 100 Mg/10 Ml Vial) 60 mg IV NOW ONE Stop: 06/16/20 16:35 Last Admin: 06/16/20 16:56 Dose: 60 mg Documented by: BUFFY Vital Signs Vital signs: Vital Signs - 8 hr 06/16/20 16:04 06/16/20 16:14 06/16/20 16:30 Temperature 98.1 F Pulse Rate 80 75 78 Respiratory Rate 18 20 Blood Pressure 175/81 H 164/79 H 150/71 H Pulse Oximetry 97 99 97 06/16/20 17:00 06/16/20 18:20 Temperature Pulse Rate 77 79 Respiratory Rate 22 22 Blood Pressure 168/81 H 152/82 H Pulse Oximetry 97 94 MDM - Recheck/Abnormal Lab/Rx Lab Data Attestation: I reviewed the patient's lab results. Result diagrams: 06/16/20 16:08 06/16/20 16:08 Labs: Lab Results 06/16/20 06/16/20 06/16/20 Range/Units 16:08 16:08 16:08 WBC 3.8 L (4.5-11.0) X10^3/uL RBC 4.55 (4.5-5.9) X10^6/uL Hgb 11.6 L (13.5-17.5) g/dL Hct 36.2 L (41-53) % MCV 79.6 L (80-100) fL MCH 25.4 L (26-34) PG MCHC 31.9 (30-36) % RDW 16.4 H (11.6-14.8) % Plt Count 98 L (150-400) X10^3/uL Neut % (Auto) 71.2 (50-75) % Lymph % (Auto) 14.4 L (25-40) % [place] % (Auto) 11.7 (3-14) % Eos % (Auto) 2.5 (2-4) % Baso % (Auto) 0.2 (0-2) % Neut # (Auto) 2700 (1133-5408) /uL Lymph # (Auto) 500 L (9048-1094) /uL [place] # (Auto) 400 (0-900) /uL Eos # (Auto) 100 (0-450) /uL Baso # (Auto) 0 (0-100) /uL PT 13.4 H (10.1-12.7) SECONDS INR 1.2 (0.9-1.3) APTT 37 H (26.4-36.2) SECONDS ABG pH (7.35-7.45) ABG pCO2 (35-45) mmHg ABG pO2 (80-100) mmHg ABG HCO3 (22-26) mmol/L ABG Total CO2 (21-31) mmol/L ABG O2 Saturation (95-100) % ABG Base Excess (-2-2) mmol/L FiO2 Sodium 136 L (137-145) mmol/L Potassium 3.1 L (3.4-5.1) mmol/L Chloride 94 L (98-107) mmol/L Carbon Dioxide 41 H* (22-32) mmol/L BUN 26 H (9-20) mg/dL Creatinine 0.84 (0.66-1.25) mg/dL Estimated GFR > 60.0 (>60) mL/min BUN/Creatinine Ratio 31.0 H (6-22) Glucose 155 H (80-110) mg/dL Calcium 9.0 (8.4-10.2) mg/dL Magnesium 2.6 H (1.6-2.3) mg/dL Total Bilirubin 0.9 (0.2-1.3) mg/dL AST 95 H (17-59) IU/L ALT 48 (<50) IU/L Alkaline Phosphatase 72 (38-126) U/L Total Creatine Kinase 386 H (55-170) U/L CK-MB (CK-2) 4.69 H (<2.37) ng/mL CK-MB (CK-2) Rel Index 1.2 L (1.5-5.0) % Troponin I < 0.012 (0.01-0.034) ng/mL NT-Pro-B Natriuret Pep (<125) pg/mL Total Protein 6.3 (6.3-8.2) g/dL Albumin 3.3 L (3.5-5.0) g/dL Globulin 3.0 (1.7-4.1) g/dL Albumin/Globulin Ratio 1.1 (1.0-2.8) Lipase 68 (23-300) U/L SARS-CoV-2 (PCR) (Negative) 06/16/20 06/16/20 06/16/20 Range/Units 16:08 16:32 17:44 WBC (4.5-11.0) X10^3/uL RBC (4.5-5.9) X10^6/uL Hgb (13.5-17.5) g/dL Hct (41-53) % MCV (80-100) fL MCH (26-34) PG MCHC (30-36) % RDW (11.6-14.8) % Plt Count (150-400) X10^3/uL Neut % (Auto) (50-75) % Lymph % (Auto) (25-40) % [place] % (Auto) (3-14) % Eos % (Auto) (2-4) % Baso % (Auto) (0-2) % Neut # (Auto) (9428-5344) /uL Lymph # (Auto) (8923-3666) /uL [place] # (Auto) (0-900) /uL Eos # (Auto) (0-450) /uL Baso # (Auto) (0-100) /uL PT (10.1-12.7) SECONDS INR (0.9-1.3) APTT (26.4-36.2) SECONDS ABG pH 7.44 (7.35-7.45) ABG pCO2 54.8 H (35-45) mmHg ABG pO2 69 L (80-100) mmHg ABG HCO3 37 H (22-26) mmol/L ABG Total CO2 39 H (21-31) mmol/L ABG O2 Saturation 94 L (95-100) % ABG Base Excess 13.0 H (-2-2) mmol/L FiO2 21 Sodium (137-145) mmol/L Potassium (3.4-5.1) mmol/L Chloride (98-107) mmol/L Carbon Dioxide (22-32) mmol/L BUN (9-20) mg/dL Creatinine (0.66-1.25) mg/dL Estimated GFR (>60) mL/min BUN/Creatinine Ratio (6-22) Glucose (80-110) mg/dL Calcium (8.4-10.2) mg/dL Magnesium (1.6-2.3) mg/dL Total Bilirubin (0.2-1.3) mg/dL AST (17-59) IU/L ALT (<50) IU/L Alkaline Phosphatase (38-126) U/L Total Creatine Kinase (55-170) U/L CK-MB (CK-2) (<2.37) ng/mL CK-MB (CK-2) Rel Index (1.5-5.0) % Troponin I (0.01-0.034) ng/mL NT-Pro-B Natriuret Pep 167 H (<125) pg/mL Total Protein (6.3-8.2) g/dL Albumin (3.5-5.0) g/dL Globulin (1.7-4.1) g/dL Albumin/Globulin Ratio (1.0-2.8) Lipase (23-300) U/L SARS-CoV-2 (PCR) Negative (Negative) Imaging Data Chest x-ray: Radiologist's Impression: PROCEDURE: XR CHEST 1V INDICATIONS: Short of breath TECHNIQUE: One view of the chest was acquired. COMPARISON: [facility], , XR CHEST 2V, 03/09/2020, 9:13. FINDINGS: Surgical changes and devices: None. Lungs and pleura: An incomplete inspiratory result is noted, causing a crowded appearance to the lung markings. No focal infiltrates are seen. No pneumothorax or significant pleural effusions are seen. Mediastinum: Mediastinal contours appear normal. Heart size is normal. Bones and chest wall: No suspicious bony lesions. Age-appropriate bony degenerative changes are seen. Overlying soft tissues appear unremarkable. IMPRESSION: Limited portable chest examination, without a significant cardiopulmonary abnormality identified. Dictated by: Chris Wiley M.D. on 06/16/2020 at 15:49 Approved by: Chris Wiley M.D. on 06/16/2020 at 15:50 US - abdomen: Radiologist's Impression: PROCEDURE: US ABDOMEN LIMITED INDICATIONS: POSSIBLE ASCITIES TECHNIQUE: Real-time focused scanning was performed of the abdomen, with image documentation. COMPARISON: None. FINDINGS: There is moderate ascites seen in the right upper and right lower quadrant. No fluid seen in the left upper or lower quadrant. IMPRESSION: Right-sided ascites. Dictated by: Freddy Wyman M.D. on 06/16/2020 at 18:48 ECG Data Attestation: I personally reviewed and interpreted this ECG as follows: Prior ECG tracings: available for review Interpretation: Rate [address] changes or T-wave inversions similar to previous EKGs MDM Narrative Medical decision making narrative: The patient has obvious swelling and anasarca some of it does seem to be chronic however he is complaining of pain and pressure on his diaphragm pushing up and seems to be quite uncomfortable. He also has new actual drainage from the skin in his abdomen which he says is new. He has been treated as an outpatient with diuretics which lowered his potassium to 2.5. Today after oral potassium replacement it is better at 3.1. However patient I feel is going to need aggressive diuresis and close potassium monitoring. He does not complain of any significant shortness of breath nor is he hypoxic. Does not appear to have any infection and certainly not septic. He does have new ascites on ultrasound right-sided only which is interesting, previous CT f april did not show any ascites. Dr. Mart updated on patient's symptoms and test results agrees to admission for diuresis Discharge Plan Departure Patient Disposition: Admitted as Observation Clinical Impression: Anasarca, Acute hypokalemia Admit Date/Time: 06/16/20 18:22 Admit Provider: Renetta Mart
[2020-06-16 16:31] LABS: INR 1.2 (0.9-1.3); Prothrombin Time 13.4 SECONDS (10.1-12.7)
[2020-06-16 16:34] LABS: PTT Partial Thromboplastin Tim 37 SECONDS (26.4-36.2)
--- NOTE | 2020-06-16 16:34 | DI.RAD.S_ITS ---
PROCEDURE: XR CHEST 1V INDICATIONS: Short of breath TECHNIQUE: One view of the chest was acquired. COMPARISON: [facility], CR, XR CHEST 2V, 03/09/2020, 9:13. FINDINGS: Surgical changes and devices: None. Lungs and pleura: An incomplete inspiratory result is noted, causing a crowded appearance to the lung markings. No focal infiltrates are seen. No pneumothorax or significant pleural effusions are seen. Mediastinum: Mediastinal contours appear normal. Heart size is normal. Bones and chest wall: No suspicious bony lesions. Age-appropriate bony degenerative changes are seen. Overlying soft tissues appear unremarkable. IMPRESSION: Limited portable chest examination, without a significant cardiopulmonary abnormality identified. Dictated by: Chris Wiley M.D. on 06/16/2020 at 15:49 Approved by: Chris Wiley M.D. on 06/16/2020 at 15:50
[2020-06-16 16:44] LABS: Alanine Aminotransferase 48 IU/L (<50); Albumin 3.3 g/dL (3.5-5.0); Albumin Globulin Ratio 1.1 (1.0-2.8); Alkaline Phosphatase 72 U/L (38-126); Aspartate Aminotransferase 95 IU/L (17-59); Bilirubin Total 0.9 mg/dL (0.2-1.3); Blood Urea Nitrogen 26 mg/dL (9-20); Chloride 94 mmol/L (98-107); Creatine Kinase 386 U/L (55-170); Estimated Glomerular Filt Rate > 60.0 mL/min (>60); Glucose 155 mg/dL (80-110); HEMOLYSIS < 15 (0-50); Lipase 68 U/L (23-300); Magnesium 2.6 mg/dL (1.6-2.3); Potassium 3.1 mmol/L (3.4-5.1); Sodium 136 mmol/L (137-145); Total Protein 6.3 g/dL (6.3-8.2)
[2020-06-16 16:55] LABS: Troponin I < 0.012 ng/mL (0.01-0.034)
[2020-06-16] MEDS: FUROSEMIDE 100 MG/10 ML VIAL 60 MG IV (16:56)
[2020-06-16 16:57] LABS: Carbon Dioxide 41 mmol/L (22-32)
[2020-06-16 16:59] LABS: COVID19 -Nasal RAPID Negative (Negative)
[2020-06-16 17:00] LABS: CKMB % Relative Index 1.2 % (1.5-5.0); Creatine Kinase MB 4.69 ng/mL (<2.37)
[2020-06-16 17:08] LABS: NT-proBNP (BNP-Adult 18+) 167 pg/mL (<125)
[2020-06-16 17:54] LABS: Fractionated Inspired Oxygen 21; HCO3 ABG 37 mmol/L (22-26); Oxygen Saturation ABG 94 % (95-100); PCO2 ABG 54.8 mmHg (35-45); PO2 ABG 69 mmHg (80-100); TCO2 ABG 39 mmol/L (21-31); pH ABG 7.44 (7.35-7.45)
--- NOTE | 2020-06-16 18:05 | DI.US.S_ITS ---
PROCEDURE: US ABDOMEN LIMITED INDICATIONS: POSSIBLE ASCITIES TECHNIQUE: Real-time focused scanning was performed of the abdomen, with image documentation. COMPARISON: None. FINDINGS: There is moderate ascites seen in the right upper and right lower quadrant. No fluid seen in the left upper or lower quadrant. IMPRESSION: Right-sided ascites. Dictated by: Freddy Wyman M.D. on 06/16/2020 at 18:48 Approved by: Freddy Wyman M.D. on 06/16/2020 at 18:49
[2020-06-16] MEDS: POTASSIUM CHLORIDE 40 MEQ in SODIUM CHLORIDE 0.9% 500 ML 130 ML IV (18:31)
[2020-06-16 19:00] LABS: Bacteria Urine None Seen; RBC Urine None Seen (0-5/HPF); WBC Urine None Seen (0-5/HPF)
[2020-06-16 19:29] LABS: Culture Indicated Urine Cult Not Indicated
--- NOTE | 2020-06-16 19:52 | PC.ADMIT ---
[email or web address] Admission Note: The patient,Benedicto Cherry,69 y/o, was given written information regarding hospital policies, unit procedures and contact persons. Patient's smoking status: Never smoker. Vital Signs - 8 hr 06/16/20 16:04 06/16/20 16:14 06/16/20 16:30 Temperature 98.1 F Pulse Rate 80 75 78 Respiratory Rate 18 20 Blood Pressure 175/81 H 164/79 H 150/71 H Pulse Oximetry 97 99 97 06/16/20 17:00 06/16/20 18:20 06/16/20 19:29 Temperature Pulse Rate 77 79 76 Respiratory Rate 22 22 18 Blood Pressure 168/81 H 152/82 H 164/79 H Pulse Oximetry 97 94 98 06/16/20 19:30 06/16/20 19:33 06/16/20 19:34 Temperature 97.6 F Pulse Rate 82 86 81 Respiratory Rate 19 20 19 Blood Pressure 152/83 H 169/87 H 159/71 H Pulse Oximetry 96 95 94 Patient up from the Ed via stretcher. Patient A&O, calm and cooperative. Patient was able to get off the stretcher and ambulate to the bathroom, gait steady and then to AC bed. Patient resting in bed at this time.
--- NOTE | 2020-06-16 21:02 | PC.NURSE ---
Pt has clear fluid draining from umbilicus. Large portion of pt's large abdomen surrounding umbilicus is deep pink in color as well as pt's BL LE's. Edema present to BL LE's and pt reports this is improved. Able to successfully doppler pedal pulses BL. Dyspnea at rest and with any conversation. Pt unable to complete sentences. Prefers nearly flat lying d/t size of abdomen. Encouraged to call for needs. Commode at bedside.
--- NOTE | 2020-06-16 21:48 | P.HP_ITS ---
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 He states that Dr. GUERIN and Dr. Glaser had encouraged him to go to the hospital approximately 10 days ago but he was not able to because he was caring for his who has shingles a ffecting her face. He was able to come today so he presented to the ER stating that he needed his electrolytes checked. In the emergency department he was found to be visibly dyspneic although O2 sats 94% on room air and chest x-ray showing no significant abnormalities but was found to have anasarca with moderate amount of ascites on abdominal ultrasound. It was felt that he needed to be admitted for aggressive IV diuresis and electrolyte replacement and close monitoring for electrolyte abnormalities. The patient states that he has been battling severe swelling of his bilateral legs scrotum and abdomen for over the last month he saw Dr. Wyman regarding his hepatocellular carcinoma on May 31, 2020 and I reviewed that note. His last MRI liver protocol was done showing no evidence of recurrent hepatocellular carcinoma. His RFA was done 04/05/2015 shortly after he was diagnosed with hepatocellular carcinoma. He then had a repeat RFA 08/14/2015 and again June 2016. He has not shown recurrence of his hepatocellular carcinoma since then. Dr. Wyman did not feel that hepatocellular cellular carcinoma nor the cirrhosis for the etiology for his lower extremity edema and anasarca. Apparently he has recently had biopsies of his skin suspicious for mycosis fungoides. He saw Dr. Glaser June 11 and ask that point he was having severe hypokalemia at 2.52.4 and he was replaced with oral potassium in at that time they changed him from metallic zone 2 furosemide and spironolactone however there was a mixup with the pharmacy he did get not get the spironolactone. He has gained approximately 5-10 lb since June 11. He states he has been urinating a lot more. He does not feel his breathlessness his exertional dyspnea his abdominal pain has abdominal swelling or the weeping from his belly button has changed in the last 4 weeks but perhaps is more severe over the last week. He has been at home on [place] silent has been cooking dinner and as he describes functional. However he is having difficulty where if he falls he is not able to get him up because his weight is so much she is not able to push himself up. He is having increasing mobility issues due to his abdominal swelling tightness and the pain associated with that. He has had cardiac workup including an echo which showed normal left ventricular function. It is not felt that he has cardiac etiology for his edema. He has seen Dr. Moe at [facility] as well and I do not have these notes available to me. Past medical history: 1. Hepatocellular carcinoma diagnosed March 2015 has been clear since 2017 Assessment 2. 01/27/2019 showed cirrhotic liver morphology with portal hypertension including splenomegaly, splenorenal shunt, esophageal varices 3. Morbid obesity 4. Thrombocytopenia 5. Type 2 diabetes with peripheral neuropathy, most recent hemoglobin A1c was 06/11/2020 was 6.5 6. Obstructive sleep apnea 7. Hypertension 8. Diastasis recti 9. 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 Insomnia 11. History of iron deficiency anemia 12. Depression in remission Past surgical history: 1. Umbilical hernia repair 2. Benign harm a [place] of the trachea with tracheal stenosis Social history: Patient is he has been about 20 years they have kids from previous marriages but not together. 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 He now lives there and has lived there for the last 5 years. Patient is retired residential roofer helper bench inspector Health behavior No history of tobacco abuse Rare alcohol Family history: Dad of melanoma He has a brother who is a [place] vet who has liver cancer answer, but they think this is attributed to Agent [place] Mother of alcoholism Review of systems: Patient denies any chest pain or palpitations or lightheadedness or dizziness Patient denies any fevers chills, headache Patient denies any change in his bowel movements Patient denies any nausea vomiting or diarrhea Patient has had difficulty getting a deep breath because he feels his abdomen is pushing up on his chest, this is been stable for the last month, questionably worsened in the last week Denies depression or anxiety Has difficulty sleeping Patient History Medical History Calculus of gallbladder and bile duct w/o cholecystitis or obstruction Cataracts, bilateral Cirrhosis, non-alcoholic Class 2 obesity Diabetes type 2, controlled Diabetic polyneuropathy Diastasis recti Hepatocellular carcinoma Hypertension Iron deficiency anemia Major depression in remission Microalbuminuria due to type 2 diabetes mellitus RICARDO (obstructive sleep apnea) Thoracic radiculitis Thrombocytopenia 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 Surgical History History of benign tracheal tumor History of umbilical hernia repair Family & Social History Social History: household members spouse Prior Living Arrangements House Safety & Behavioral: Feels Safe in Current Yes Environment Been Physically Hurt or No Threatened By a Person Suicidal Ideation Description None Suicide Plan Description No Plan Tobacco & Substance use: Smoking Status Never smoker alcohol intake former alcohol intake frequency 0-2 drinks per day Substance Use Type marijuana Meds Home Medications and Allergies Home Medications Medication Instructions Recorded Confirmed Type diphenhydramine HCl [Benadryl] 1 cap PO QPM PRN 03/12/18 06/11/20 History insulin glargine [Lantus U-100 50 units SUBCUT QPM 03/12/18 06/11/20 History Insulin] metformin 500 mg PO BID 03/12/18 06/11/20 History pioglitazone 30 mg PO DAILY 03/12/18 06/11/20 History insulin lispro 100 unit/mL 50 unit SUBCUT BID ml 02/09/20 06/11/20 History subcutaneous solution furosemide 40 mg tablet 40 mg PO DAILY #90 tab 05/04/20 06/11/20 Rx magnesium 250 mg PO DAILY 05/31/20 06/11/20 History potassium chloride 20 mEq 60 meq PO BID #180 tab 06/11/20 06/11/20 Rx tablet,extended release spironolactone 50 mg tablet 50 mg PO BID #60 tab 06/12/20 Rx ascorbic acid (vitamin C) 500 mg PO DAILY 06/16/20 06/16/20 History melatonin 10 mg PO BEDTIME PRN 06/16/20 06/16/20 History multivitamin [Daily Multivitamin] 1 tab PO DAILY 06/16/20 06/16/20 History Allergies Allergy/AdvReac Type Severity Reaction Status Date / Time [id number] Reductase AdvReac Intermediate Muscle Verified 06/11/20 14:38 Inhibitor Pain. Itchiness Exam Vital Signs (past 8 hours): - 06/16/20 16:04 06/16/20 16:14 06/16/20 16:30 Temperature 98.1 F Pulse Rate 80 75 78 Respiratory Rate 18 20 Blood Pressure 175/81 H 164/79 H 150/71 H Pulse Oximetry 97 99 97 06/16/20 17:00 06/16/20 18:20 06/16/20 19:29 Temperature Pulse Rate 77 79 76 Respiratory Rate 22 22 18 Blood Pressure 168/81 H 152/82 H 164/79 H Pulse Oximetry 97 94 98 06/16/20 19:30 06/16/20 19:33 06/16/20 19:34 Temperature 97.6 F Pulse Rate 82 86 81 Respiratory Rate 19 20 19 Blood Pressure 152/83 H 169/87 H 159/71 H Pulse Oximetry 96 95 94 Oxygen Delivery Method Room Air Oxygen Flow Rate 0 Narrative Exam Narrative: Patient is alert and oriented x3 and is an excellent historian HEENT is unremarkable Neck: Supple without adenopathy or thyromegaly or bruit but it is obese and difficult to examine Chest: Decreased breath sounds bilateral bases but otherwise clear to auscultation Cor: Regular rate and rhythm with distant S1-S2 Abdomen: Morbid obesity, no obvious hepatosplenomegaly but abdomen is so tight from ascites and distention it is difficult to palpate. There is no guarding. There is no rebound tenderness. Patient does have weeping from the umbilicus, and there is pitting edema in the abdomen. Extremities have tight 2+ pitting edema bilateral lower extremities from the foot up to the thigh and this includes the scrotum Clearly chronic changes on the lower extremities with skin changes Pulses are 1+ dorsalis pedis Toenails thickened and skin lichenified on the distal feet Also multiple skin tags in the axilla bilaterally Neurologic exam is nonfocal Objective Labs Result Diagrams: 06/16/20 16:08 06/16/20 16:08 Labs: Laboratory Results - last 24 hr 06/16/20 06/16/20 06/16/20 16:08 16:08 16:08 WBC 3.8 L RBC 4.55 Hgb 11.6 L Hct 36.2 L MCV 79.6 L MCH 25.4 L MCHC 31.9 RDW 16.4 H Plt Count 98 L Neut % (Auto) 71.2 Lymph % (Auto) 14.4 L [place] % (Auto) 11.7 Eos % (Auto) 2.5 Baso % (Auto) 0.2 Neut # (Auto) 2700 Lymph # (Auto) 500 L [place] # (Auto) 400 Eos # (Auto) 100 Baso # (Auto) 0 PT 13.4 H INR 1.2 APTT 37 H ABG pH ABG pCO2 ABG pO2 ABG HCO3 ABG Total CO2 ABG O2 Saturation ABG Base Excess FiO2 Sodium 136 L Potassium 3.1 L Chloride 94 L Carbon Dioxide 41 H* BUN 26 H Creatinine 0.84 Estimated GFR > 60.0 BUN/Creatinine Ratio 31.0 H Glucose 155 H Calcium 9.0 Magnesium 2.6 H Total Bilirubin 0.9 AST 95 H ALT 48 Alkaline Phosphatase 72 Total Creatine Kinase 386 H CK-MB (CK-2) 4.69 H CK-MB (CK-2) Rel Index 1.2 L Troponin I < 0.012 NT-Pro-B Natriuret Pep Total Protein 6.3 Albumin 3.3 L Globulin 3.0 Albumin/Globulin Ratio 1.1 Lipase 68 Urine RBC Urine WBC Urine Bacteria Ur Culture Indicated? SARS-CoV-2 (PCR) 06/16/20 06/16/20 06/16/20 16:08 16:32 17:44 WBC RBC Hgb Hct MCV MCH MCHC RDW Plt Count Neut % (Auto) Lymph % (Auto) [place] % (Auto) Eos % (Auto) Baso % (Auto) Neut # (Auto) Lymph # (Auto) [place] # (Auto) Eos # (Auto) Baso # (Auto) PT INR APTT ABG pH 7.44 ABG pCO2 54.8 H ABG pO2 69 L ABG HCO3 37 H ABG Total CO2 39 H ABG O2 Saturation 94 L ABG Base Excess 13.0 H FiO2 21 Sodium Potassium Chloride Carbon Dioxide BUN Creatinine Estimated GFR BUN/Creatinine Ratio Glucose Calcium Magnesium Total Bilirubin AST ALT Alkaline Phosphatase Total Creatine Kinase CK-MB (CK-2) CK-MB (CK-2) Rel Index Troponin I NT-Pro-B Natriuret Pep 167 H Total Protein Albumin Globulin Albumin/Globulin Ratio Lipase Urine RBC Urine WBC Urine Bacteria Ur Culture Indicated? SARS-CoV-2 (PCR) Negative 06/16/20 18:35 WBC RBC Hgb Hct MCV MCH MCHC RDW Plt Count Neut % (Auto) Lymph % (Auto) [place] % (Auto) Eos % (Auto) Baso % (Auto) Neut # (Auto) Lymph # (Auto) [place] # (Auto) Eos # (Auto) Baso # (Auto) PT INR APTT ABG pH ABG pCO2 ABG pO2 ABG HCO3 ABG Total CO2 ABG O2 Saturation ABG Base Excess FiO2 Sodium Potassium Chloride Carbon Dioxide BUN Creatinine Estimated GFR BUN/Creatinine Ratio Glucose Calcium Magnesium Total Bilirubin AST ALT Alkaline Phosphatase Total Creatine Kinase CK-MB (CK-2) CK-MB (CK-2) Rel Index Troponin I NT-Pro-B Natriuret Pep Total Protein Albumin Globulin Albumin/Globulin Ratio Lipase Urine RBC None seen Urine WBC None seen Urine Bacteria None seen Ur Culture Indicated? Cult not indicated SARS-CoV-2 (PCR) Assessment & Plan Assessment & Plan narrative: 69-year-old male admitted for severe progressive peripheral edema, anasarca, probable worsening ascites secondary to cirrhosis of the liver. Plan: Will admit patient to the hospital. He has received 60 mg of IV Lasix is and having good diuresis. We will reassess clinical condition tomorrow may need to repeat CT scan. Will discuss with Radiology as well about possible paracentesis to take some of the ascites fluid off. We also did try to get in touch with Dr. Moe or his partner to get their opinion. Assessment 2. Portal hypertension with esophageal varices with no acute issues at this time Plan: Will follow closely Assessment 3. Hypokalemia improved from outpatient when he arrived in the ER but at risk for worsening due to aggressive diuresis Plan: Will give 40 mEq of potassium and will reassess. Will continue to monit or closely. Assessment number for type 2 diabetes with peripheral neuropathy Plan: Will put him on sliding scale insulin and a diabetic diet and will check blood sugars will give Lantus 40 units tonight. Will continue on metformin. Will hold pioglitazone which could be possibly contributing to lower extremity edema though I have a low suspicion for that. Assessment 5. History of anemia Plan will continue to follow Assessment 6. History of thrombocytopenia unclear etiology Plan: Will continue to monitor Assessment 7. DVT prophylaxis will use SCDs and discussed with pharmacy regarding thrombocytopenia Assessment 8. GI prophylaxis Plan: Will continue Protonix 90 minutes spent with patient in reviewing his chart his consultation notes, discussing with ER doctor, nursing and meeting with patient formulating plan and discussing code status Code status is modified code, DNI COVID-19 COVID-19 status: Negative Result date/Date tested (Pos, Neg/Pending): 06/16/20
[2020-06-16] MEDS: INSULIN GLARGINE 100 UNIT/ML 3ML PEN 40 UNIT SUBCUT (22:21)
[2020-06-17] VITALS (8 sets, daily range): BP systolic 107–156; BP diastolic 40–76; PULSE 73–87; RESP 18–21; TEMP 36.9–37.3; O2SAT 92–98; BMI 47.0
[2020-06-17 00:13] LABS: BUN Creatinine Ratio 29.1 (6-22); Blood Urea Nitrogen 25 mg/dL (9-20); Calcium 8.5 mg/dL (8.4-10.2); Chloride 96 mmol/L (98-107); Estimated Glomerular Filt Rate > 60.0 mL/min (>60); Glucose 209 mg/dL (80-110); HEMOLYSIS < 15 (0-50); Potassium 3.1 mmol/L (3.4-5.1); Sodium 135 mmol/L (137-145)
[2020-06-17 00:24] LABS: Carbon Dioxide 37 mmol/L (22-32)
[2020-06-17] MEDS: LORazepam 2 MG/ML INJ 0.5 MG IV (00:24)
--- NOTE | 2020-06-17 01:33 | PC.NURSE ---
Addendum entered by Crystal Yadav R.N. 06/17/20 05:25: Pt reports the Lorazepam worked very well for him last night. Addendum entered by Crystal Yadav R.N. 06/17/20 02:23: Xavier lift bars left above bed aligned with waist so patient can use this to sit himself up PRN. Original Note: [address] Mart, informed her of patient's c/o abdominal pain and discomfort rating 6/10. No pain meds on file. Dr. Mart gave verbal OK for Oxycodone 5 or 10mg Q6H PRN. Informed patient, and discussed options. He wished to try the Lorazepam first to see if it would help. Lorazepam administered.
[2020-06-17 05:22] LABS: Add Manual Diff / Slide Review NO; Basophils Absolute Auto 0 /uL (0-100); Basophils Percent Auto 0.3 % (0-2); Eosinophils Absolute Auto 100 /uL (0-450); Eosinophils Percent Auto 3.7 % (2-4); Hematocrit 33.3 % (41-53); Hemoglobin 10.4 g/dL (13.5-17.5); Lymphocytes Absolute Auto 400 /uL (1100-4500); Lymphocytes Percent Auto 13.4 % (25-40); Mean Corpuscular HGB Conc 31.3 % (30-36); Mean Corpuscular Hemoglobin 24.9 PG (26-34); Mean Corpuscular Volume 79.4 fL (80-100); Monocytes Absolute Auto 400 /uL (0-900); Monocytes Percent Auto 13.6 % (3-14); Neutrophils Absolute Auto 2200 /uL (1500-7000); Platelet Count 83 X10^3/uL (150-400); Red Blood Cell Count 4.19 X10^6/uL (4.5-5.9); Red Cell Distribution Width 16.4 % (11.6-14.8); White Blood Cell Count 3.2 X10^3/uL (4.5-11.0)
[2020-06-17 05:31] LABS: INR 1.3 (0.9-1.3); Prothrombin Time 14.5 SECONDS (10.1-12.7)
[2020-06-17 05:34] LABS: Alanine Aminotransferase 40 IU/L (<50); Albumin 2.8 g/dL (3.5-5.0); Albumin Globulin Ratio 1.1 (1.0-2.8); Alkaline Phosphatase 62 U/L (38-126); Aspartate Aminotransferase 78 IU/L (17-59); BUN Creatinine Ratio 31.6 (6-22); Blood Urea Nitrogen 25 mg/dL (9-20); Calcium 8.5 mg/dL (8.4-10.2); Chloride 97 mmol/L (98-107); Estimated Glomerular Filt Rate > 60.0 mL/min (>60); Globulin 2.5 g/dL (1.7-4.1); Glucose 134 mg/dL (80-110); HEMOLYSIS < 15 (0-50); Magnesium 2.2 mg/dL (1.6-2.3); Potassium 3.1 mmol/L (3.4-5.1); Sodium 135 mmol/L (137-145); Total Protein 5.3 g/dL (6.3-8.2)
[2020-06-17 05:41] LABS: Carbon Dioxide 38 mmol/L (22-32)
[2020-06-17 05:42] LABS: NT-proBNP (BNP-Adult 18+) 167 pg/mL (<125)
[2020-06-17] MEDS: METFORMIN HCL 500 MG TABLET PO ×2 (08:53→16:57)
[2020-06-17] MEDS: FUROSEMIDE 100 MG/10 ML VIAL 60 MG IV ×2 (08:54→15:01)
[2020-06-17] MEDS: INSULIN ASPART 100 UNIT/ML INSULN PEN SUBCUT ×4 (09:21→20:06)
[2020-06-17] MEDS: SODIUM CHLORIDE 0.9% FLUSH 10 ML IV ×2 (09:25→20:07)
[2020-06-17 12:21] LABS: Creatine Kinase 263 U/L (55-170)
[2020-06-17 12:32] LABS: Troponin I 0.012 ng/mL (0.01-0.034)
[2020-06-17 12:37] LABS: CKMB % Relative Index 1.3 % (1.5-5.0); Creatine Kinase MB 3.38 ng/mL (<2.37)
--- NOTE | 2020-06-17 13:12 | PM.PN.1 ---
Subjective Subjective Date Patient Seen: 06/17/20 Time Patient Seen: 12:02 Interval history: Patient had excellent response to IV lasix 60 mg with over 2.5 L of fluid out. He is feeling significantly better today yesterday he was unable to move due to the extent of peripheral and central edema that he had. He feels that he is breathing better. He can actually move his legs today. He did receive some lorazepam last night for sleep he is alert and oriented today. He denies chest pain or shortness of breath. He denies chills. He had a normal bowel movement this morning. He is having some difficulty urinating due to edema of the scrotum and penis. But he is able to as long as he is upright using a urinal. He has not had any nausea or vomiting. He is tolerating p.o. intake without difficulty. He denies significant abdominal pain but is having chest tightness. On further review of his notes he did have biopsies by Dermatology a week and a half ago. There was some concern for mycosis fungoides but these tests were negative. Review of systems is otherwise negative other than above Exam Vital Signs (past 8 hours): - 06/17/20 07:45 06/17/20 08:00 06/17/20 12:05 Temperature 98.8 F 98.4 F Pulse Rate 73 82 Respiratory Rate 19 18 Blood Pressure 107/40 L 132/55 L Pulse Oximetry 98 95 95 Oxygen Delivery Method Room Air Oxygen Flow Rate 0 Narrative Exam Narrative: Patient is alert and oriented x3. He seems much more comfortable today. His O2 sats are 95% on room air. Vital signs are stable respiratory rate 18 HEENT face appears much less swollen Neck is supple without adenopathy Chest: Clear to auscultation without wheezes rhonchi or crackles but he does have decreased breath sounds bilateral bases Cor: Regular rate and rhythm with distant S1-S2 Abdomen: Patient with pitting edema diffusely but he is less abdominal distension. He has not have tenderness. There is no evidence of significant erythema or rash. He has a area that is weeping approximately 3 x 3 cm. Right lower abdomen Patient with marked scrotal edema with weeping and edema of the shaft of the penis Patient with 3+ pitting edema up to the thighs, including the knees. Chronic venous stasis changes and changes of the skin of the lower extremity from chronic edema Neurologic exam is nonfocal Objective Labs Result Diagrams: 06/17/20 05:05 06/17/20 05:05 Labs: Laboratory Results - last 24 hr 06/16/20 06/16/20 06/16/20 16:08 16:08 16:08 WBC 3.8 L RBC 4.55 Hgb 11.6 L Hct 36.2 L MCV 79.6 L MCH 25.4 L MCHC 31.9 RDW 16.4 H Plt Count 98 L Neut % (Auto) 71.2 Lymph % (Auto) 14.4 L [place] % (Auto) 11.7 Eos % (Auto) 2.5 Baso % (Auto) 0.2 Neut # (Auto) 2700 Lymph # (Auto) 500 L [place] # (Auto) 400 Eos # (Auto) 100 Baso # (Auto) 0 PT 13.4 H INR 1.2 APTT 37 H ABG pH ABG pCO2 ABG pO2 ABG HCO3 ABG Total CO2 ABG O2 Saturation ABG Base Excess FiO2 Sodium 136 L Potassium 3.1 L Chloride 94 L Carbon Dioxide 41 H* BUN 26 H Creatinine 0.84 Estimated GFR > 60.0 BUN/Creatinine Ratio 31.0 H Glucose 155 H Calcium 9.0 Magnesium 2.6 H Total Bilirubin 0.9 AST 95 H ALT 48 Alkaline Phosphatase 72 Total Creatine Kinase 386 H CK-MB (CK-2) 4.69 H CK-MB (CK-2) Rel Index 1.2 L Troponin I < 0.012 NT-Pro-B Natriuret Pep Total Protein 6.3 Albumin 3.3 L Globulin 3.0 Albumin/Globulin Ratio 1.1 Lipase 68 Urine RBC Urine WBC Urine Bacteria Ur Culture Indicated? SARS-CoV-2 (PCR) 06/16/20 06/16/20 06/16/20 16:08 16:32 17:44 WBC RBC Hgb Hct MCV MCH MCHC RDW Plt Count Neut % (Auto) Lymph % (Auto) [place] % (Auto) Eos % (Auto) Baso % (Auto) Neut # (Auto) Lymph # (Auto) [place] # (Auto) Eos # (Auto) Baso # (Auto) PT INR APTT ABG pH 7.44 ABG pCO2 54.8 H ABG pO2 69 L ABG HCO3 37 H ABG Total CO2 39 H ABG O2 Saturation 94 L ABG Base Excess 13.0 H FiO2 21 Sodium Potassium Chloride Carbon Dioxide BUN Creatinine Estimated GFR BUN/Creatinine Ratio Glucose Calcium Magnesium Total Bilirubin AST ALT Alkaline Phosphatase Total Creatine Kinase CK-MB (CK-2) CK-MB (CK-2) Rel Index Troponin I NT-Pro-B Natriuret Pep 167 H Total Protein Albumin Globulin Albumin/Globulin Ratio Lipase Urine RBC Urine WBC Urine Bacteria Ur Culture Indicated? SARS-CoV-2 (PCR) Negative 06/16/20 06/16/20 06/17/20 18:35 23:45 05:05 WBC 3.2 L RBC 4.19 L Hgb 10.4 L Hct 33.3 L MCV 79.4 L MCH 24.9 L MCHC 31.3 RDW 16.4 H Plt Count 83 L Neut % (Auto) 69.0 Lymph % (Auto) 13.4 L [place] % (Auto) 13.6 Eos % (Auto) 3.7 Baso % (Auto) 0.3 Neut # (Auto) 2200 Lymph # (Auto) 400 L [place] # (Auto) 400 Eos # (Auto) 100 Baso # (Auto) 0 PT INR APTT ABG pH ABG pCO2 ABG pO2 ABG HCO3 ABG Total CO2 ABG O2 Saturation ABG Base Excess FiO2 Sodium 135 L Potassium 3.1 L Chloride 96 L Carbon Dioxide 37 H BUN 25 H Creatinine 0.86 Estimated GFR > 60.0 BUN/Creatinine Ratio 29.1 H Glucose 209 H Calcium 8.5 Magnesium Total Bilirubin AST ALT Alkaline Phosphatase Total Creatine Kinase CK-MB (CK-2) CK-MB (CK-2) Rel Index Troponin I NT-Pro-B Natriuret Pep Total Protein Albumin Globulin Albumin/Globulin Ratio Lipase Urine RBC None seen Urine WBC None seen Urine Bacteria None seen Ur Culture Indicated? Cult not indicated SARS-CoV-2 (PCR) 06/17/20 06/17/20 06/17/20 05:05 05:05 05:05 WBC RBC Hgb Hct MCV MCH MCHC RDW Plt Count Neut % (Auto) Lymph % (Auto) [place] % (Auto) Eos % (Auto) Baso % (Auto) Neut # (Auto) Lymph # (Auto) [place] # (Auto) Eos # (Auto) Baso # (Auto) PT 14.5 H INR 1.3 APTT ABG pH ABG pCO2 ABG pO2 ABG HCO3 ABG Total CO2 ABG O2 Saturation ABG Base Excess FiO2 Sodium 135 L Potassium 3.1 L Chloride 97 L Carbon Dioxide 38 H BUN 25 H Creatinine 0.79 Estimated GFR > 60.0 BUN/Creatinine Ratio 31.6 H Glucose 134 H Calcium 8.5 Magnesium 2.2 Total Bilirubin 1.0 AST 78 H ALT 40 Alkaline Phosphatase 62 Total Creatine Kinase 263 H CK-MB (CK-2) 3.38 H CK-MB (CK-2) Rel Index 1.3 L Troponin I 0.012 NT-Pro-B Natriuret Pep 167 H Total Protein 5.3 L Albumin 2.8 L Globulin 2.5 Albumin/Globulin Ratio 1.1 Lipase Urine RBC Urine WBC Urine Bacteria Ur Culture Indicated? 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 I attempted to call his [phone] at 1:00 p.m. and left a message. As well as formulating a plan Assessment 1. Severe peripheral edema with anasarca presumably secondary to cirrhosis of the liver with significant improvement with IV Lasix. I think what happened is that he had worsening in his chronic peripheral edema and anasarca secondary being changed from the talus zone to Lasix and spironolactone and then the pharmacy was unable to given the spironolactone and I think this is what tipped him over the edge and prompted admission. I think likely he will need aggressive long-term diuresis with careful monitoring of electrolytes, ex cetera. Plan: Will continue the same IV Lasix 60 mg IV b.i.d.. Will repeat abdominal ultrasound tomorrow and if persistent ascites moderate will coordinate for paracenteses. I did discuss this with Dr. Marquis. Will need to have platelets available should we proceed with this. Reviewed chart notes and previous cardiac workup including an echo that showed normal left ventricular function. Assessment 2. Hepatocellular carcinoma in remission Plan: Reviewed Dr. hammond note Assessment 3. Hypokalemia will continue to treat knowing that this will be worsened by IV Lasix Plan: Will continue with potassium supplement and consider starting spironolactone Assessment number for hypo magnesemia improved Plan: Will monitor for this decreasing. Assessment 5. DVT prophylaxis Plan: Discussed with pharmacy will do 40 mg subQ Lovenox twice daily and watch closely due to his thrombocytopenia. If his platelets began decreasing towards 50,000 then we would decrease this dosing. He is at significant risk for blood clot given his sedentary situation and obesity in distant history of cancer and peripheral edema. We will get a bilateral venous Doppler to rule out blood clot currently Assessment 6. Mild rhabdomyolysis related to sedentary lifestyle and previous falls and having difficulty getting up Plan: Will recheck today. Appears to be improving. Will continue to monitor. No symptoms. Assessment 7. Nine microcytic anemia Plan: Will do guaiacs. Will continue to monitor closely Assessment 8. 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 Suspect related to liver disease. Will have platelets on order for possible paracentesis tomorrow COVID-19 COVID-19 status: Negative Result date/Date tested (Pos, Neg/Pending): 06/16/20
--- NOTE | 2020-06-17 13:40 | DI.US.S_ITS ---
PROCEDURE: US PERIPH VENOUS LOW EXTREM BI INDICATIONS: CHRONIC EDEMA TECHNIQUE: Real-time imaging, as well as color and pulse Doppler interrogation, were performed of the deep veins of both legs from the inguinal ligament to the popliteal fossa. COMPARISON: None. FINDINGS: Right: The common femoral, femoral and popliteal veins are normally compressible, and free of intraluminal thrombus. Color and pulse Doppler demonstrate normal phasic intravascular flow. There is normal augmentation response to distal compression maneuver. Left: The common femoral, femoral and popliteal veins are normally compressible, and free of intraluminal thrombus. Color and pulse Doppler demonstrate normal phasic intravascular flow. There is normal augmentation response to distal compression maneuver. This study is limited by body habitus, with poor visualization of the distal femoral veins on each side. IMPRESSION: Limited study demonstrating no findings of deep venous thrombosis. Dictated by: Chris Wiley M.D. on 06/17/2020 at 15:38 Approved by: Chris Wiley M.D. on 06/17/2020 at 15:39
[2020-06-17] MEDS: PANTOPRAZOLE 40 MG VIAL IV (15:01)
[2020-06-17] MEDS: ENOXAPARIN 30 MG/0.3 ML SYRINGE 40 MG SUBCUT ×2 (15:02→20:05)
[2020-06-17] MEDS: POTASSIUM CHLORIDE 30 MEQ in SODIUM CHLORIDE 0.9% 250 ML 88.333 ML IV (15:07)
--- NOTE | 2020-06-17 15:29 | CM.DPNOTE ---
DCP ASSESSMENT: Patient is a pleasant 69 year-old male. Admitted to hospital for Severe peripheral edema with anasarca presumably secondary to cirrhosis of the liver. Primary payer is Medicare and [facility]. PCP is Christian Glaser. DREDGE CAPTAIN and [employer] CAPTAIN Student met with patient who was in bed resting. He was alert and oriented he appears uncomfortable due to fluid retention. Educated patient about SW role in discharge planning and provided contact information. Patient reported a 50 pound weight gain in a months time. Patient reports living at home with spouse and being independent with ADL's. He has recently been primary caregiver to his Soha who has been ill with shingles. Patient did report two of his 's daughters are here from [place] to offer support. Per patient and daughters will be able to provide transportation upon discharge. Patient will need priority boarding pass to return to [facility] upon D/C. Educated and offered community resources for [facility] to patient he reported that he is aware of resources and how to contact them to get additional support if needed. PLAN: Patient hopeful he will D/C home when medically stable. CM Team to continue to follow patient closely. CORBIN Gómez MSW Student Discharge Planning/Care Management CM Discharge Assessment Start: 06/17/20 15:24 Freq: Status: Active Protocol: Document 06/17/20 15:24 AL (Rec: 06/17/20 15:28 AL [id number]) Discharge Planning Assessment Assigned [employer] CORBIN Rogers Student Contact Information Soha Cherry () # Advance Directives? Yes History Provided By Patient,Medical Record Has Patient been admitted in last 30 No days? Prior Living Arrangements House Household Members spouse Type of transporation used prior to Relies on Others admit Comment Independent with ADL's Yes Is patient alert and oriented? Yes Discharge Plan Home Transportation Arrangement per patient will transport patient Whiteboard Updated in Patient Room with Yes name and ext. # of [employer]person [employer] Review Status In Process
[2020-06-17 17:32] LABS: BUN Creatinine Ratio 30.6 (6-22); Blood Urea Nitrogen 26 mg/dL (9-20); Calcium 8.8 mg/dL (8.4-10.2); Chloride 94 mmol/L (98-107); Estimated Glomerular Filt Rate > 60.0 mL/min (>60); Glucose 197 mg/dL (80-110); HEMOLYSIS < 15 (0-50); Potassium 3.2 mmol/L (3.4-5.1); Sodium 135 mmol/L (137-145)
[2020-06-17 17:41] LABS: Carbon Dioxide 40 mmol/L (22-32)
[2020-06-17] MEDS: DOCUSATE 100 MG CAPSULE PO (20:04)
[2020-06-17] MEDS: POTASSIUM CHLORIDE 30 MEQ in SODIUM CHLORIDE 0.9% 250 ML 88.3 ML IV (20:04)
[2020-06-17] MEDS: INSULIN GLARGINE 100 UNIT/ML 3ML PEN 40 UNIT SUBCUT (20:06)
[2020-06-17] MEDS: MELATONIN 3 MG TABLET 10 MG PO (20:10)
[2020-06-17] MEDS: OXYCODONE IR 10 MG TABLET PO (23:42)
[2020-06-18] VITALS (10 sets, daily range): BP systolic 131–155; BP diastolic 55–81; PULSE 75–85; RESP 16–26; TEMP 36.5–37.2; O2SAT 90–94
[2020-06-18] MEDS: LORazepam 2 MG/ML INJ 0.5 MG IV (02:28)
[2020-06-18 05:28] LABS: Add Manual Diff / Slide Review NO; Basophils Absolute Auto 0 /uL (0-100); Basophils Percent Auto 0.2 % (0-2); Eosinophils Absolute Auto 100 /uL (0-450); Eosinophils Percent Auto 2.8 % (2-4); Hematocrit 32.7 % (41-53); Hemoglobin 10.6 g/dL (13.5-17.5); Lymphocytes Absolute Auto 400 /uL (1100-4500); Lymphocytes Percent Auto 12.2 % (25-40); Mean Corpuscular HGB Conc 32.3 % (30-36); Mean Corpuscular Hemoglobin 25.7 PG (26-34); Mean Corpuscular Volume 79.4 fL (80-100); Monocytes Absolute Auto 400 /uL (0-900); Neutrophils Absolute Auto 2600 /uL (1500-7000); Neutrophils Percent Auto 73.8 % (50-75); Platelet Count 85 X10^3/uL (150-400); Red Blood Cell Count 4.12 X10^6/uL (4.5-5.9); Red Cell Distribution Width 16.6 % (11.6-14.8); White Blood Cell Count 3.5 X10^3/uL (4.5-11.0)
[2020-06-18 05:35] LABS: Creatine Kinase 216 U/L (55-170); Magnesium 2.1 mg/dL (1.6-2.3)
[2020-06-18 05:37] LABS: Alanine Aminotransferase 42 IU/L (<50); Albumin 2.8 g/dL (3.5-5.0); Albumin Globulin Ratio 1.1 (1.0-2.8); Alkaline Phosphatase 63 U/L (38-126); Aspartate Aminotransferase 76 IU/L (17-59); BUN Creatinine Ratio 32.1 (6-22); Bilirubin Total 1.1 mg/dL (0.2-1.3); Blood Urea Nitrogen 27 mg/dL (9-20); Calcium 8.5 mg/dL (8.4-10.2); Chloride 95 mmol/L (98-107); Estimated Glomerular Filt Rate > 60.0 mL/min (>60); Globulin 2.6 g/dL (1.7-4.1); Glucose 154 mg/dL (80-110); HEMOLYSIS < 15 (0-50); Potassium 3.6 mmol/L (3.4-5.1); Sodium 135 mmol/L (137-145); Total Protein 5.4 g/dL (6.3-8.2)
[2020-06-18 06:00] LABS: Carbon Dioxide 42 mmol/L (22-32)
--- NOTE | 2020-06-18 06:07 | PC.NURSE ---
Addendum entered by Crystal Yadav R.N. 06/18/20 07:24: Dr. Mart has been notified of critical lab at 0707. Pt now has Lasix infusing in the left wrist. Bedside commode placed next to bed for patient. Addendum entered by Crystal Yadav R.N. 06/18/20 06:33: Pt has been assessed. Respiration rate is 16, oxygen saturation 91% on RA, lung sounds are diminished throughout. Edema of BLE is 2+, pitting. There is blistering R/T edema on left lower extremity. There is weeping in two sites of his abdomen: RLQ and LLQ; gauze dressing of LLQ is C/D/I and RLQ is very slightly saturated in the upper left corner. Vital signs WNL. Provider has yet to call back, it is now 6:35am. Patient exhibits NO signs or symptoms of distress. Will continue to monitor. Original Note: Received call from lab at 0600 reporting critical lab value of CARBON DIOXIDE AT 42(H). Paged provider on-call, Dr. Mart at 6:06. It took me a few minutes to figure out who was process control supervisor (I had also spoke with Kriss, coordinator, during this time frame for help on figuring out who was process control supervisor).
[2020-06-18] MEDS: FUROSEMIDE 100 MG/10 ML VIAL 60 MG IV ×2 (06:51→18:39)
[2020-06-18] MEDS: SODIUM CHLORIDE 0.9% 250 ML 21 ML IV (07:09)
--- NOTE | 2020-06-18 08:24 | PM.PN.1 ---
Subjective Subjective Date Patient Seen: 06/18/20 Time Patient Seen: 08:25 Interval history: Patient's admission and clinical course reviewed with Dr. Mart who was covering for me over the weekend Patient presented with severe edema. In part due to his noncompliance as an outpatient. He had been seen in the clinic 1 week ago ahead his metolazone discontinued because of profound hypokalemia. My intent was to start spironolactone but he did not pick that up from the pharmacy per my understanding. We were unable to contact him on able to set up for repeat potassium check. He finally did call my office on Thursday last week saying he was weeping from his belly button and we directed him to the emergency department. He came to the emergency department late the next day and was subsequently admitted Since admission he has been aggressively treated with IV diuresis and IV potassium replacement. Potassium this morning is normal he has had significant diuresis, with a little over 2000 cc on day 1 and 3700 cc by urine yesterday He feels less tense and distended in his abdomen. Weeping from a couple spots in his abdomen has diminished some. As above potassium is 3.6 this morning 1st time it has been normal in quite some time Exam Vital Signs (past 8 hours): - 06/18/20 06:30 06/18/20 06:40 06/18/20 08:00 Temperature 98.9 F 97.7 F Pulse Rate 80 78 Respiratory Rate 18 16 26 H Blood Pressure 136/81 155/76 H Pulse Oximetry 91 91 06/18/20 08:02 Temperature Pulse Rate Respiratory Rate Blood Pressure Pulse Oximetry 91 Oxygen Delivery Method Room Air Oxygen Flow Rate 0 Objective Labs Result Diagrams: 06/18/20 05:00 06/18/20 05:00 Labs: Laboratory Results - last 24 hr 06/17/20 06/17/20 06/17/20 05:05 17:17 17:50 WBC RBC Hgb Hct MCV MCH MCHC RDW Plt Count Neut % (Auto) Lymph % (Auto) [place] % (Auto) Eos % (Auto) Baso % (Auto) Neut # (Auto) Lymph # (Auto) [place] # (Auto) Eos # (Auto) Baso # (Auto) Sodium 135 L Potassium 3.2 L Chloride 94 L Carbon Dioxide 40 H* BUN 26 H Creatinine 0.85 Estimated GFR > 60.0 BUN/Creatinine Ratio 30.6 H Glucose 197 H Calcium 8.8 Magnesium Total Bilirubin AST ALT Alkaline Phosphatase Total Creatine Kinase 263 H CK-MB (CK-2) 3.38 H CK-MB (CK-2) Rel Index 1.3 L Troponin I 0.012 Total Protein Albumin Globulin Albumin/Globulin Ratio Blood Type O Positive 06/18/20 06/18/20 06/18/20 05:00 05:00 05:00 WBC 3.5 L RBC 4.12 L Hgb 10.6 L Hct 32.7 L MCV 79.4 L MCH 25.7 L MCHC 32.3 RDW 16.6 H Plt Count 85 L Neut % (Auto) 73.8 Lymph % (Auto) 12.2 L [place] % (Auto) 11.0 Eos % (Auto) 2.8 Baso % (Auto) 0.2 Neut # (Auto) 2600 Lymph # (Auto) 400 L [place] # (Auto) 400 Eos # (Auto) 100 Baso # (Auto) 0 Sodium 135 L Potassium 3.6 Chloride 95 L Carbon Dioxide 42 H* BUN 27 H Creatinine 0.84 Estimated GFR > 60.0 BUN/Creatinine Ratio 32.1 H Glucose 154 H Calcium 8.5 Magnesium 2.1 Total Bilirubin 1.1 AST 76 H ALT 42 Alkaline Phosphatase 63 Total Creatine Kinase 216 H CK-MB (CK-2) CK-MB (CK-2) Rel Index Troponin I Total Protein 5.4 L Albumin 2.8 L Globulin 2.6 Albumin/Globulin Ratio 1.1 Blood Type [facility] Medical History Calculus of gallbladder and bile duct w/o cholecystitis or obstruction Cataracts, bilateral Cirrhosis, non-alcoholic Class 2 obesity Diabetes type 2, controlled Diabetic polyneuropathy Diastasis recti Hepatocellular carcinoma Hypertension Iron deficiency anemia Major depression in remission Microalbuminuria due to type 2 diabetes mellitus RICARDO (obstructive sleep apnea) Thoracic radiculitis Thrombocytopenia 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 Anasarca-continue with aggressive diuresis. I am going to add spironolactone to his regimen since I think his liver is the likely culprit in his edema. Also help with his hypokalemia. Continue with current dose IV furosemide where having good output. Need to carefully monitor electrolytes specially with the addition of the spironolactone. Also need to monitor renal function which as far as remained entirely normal. His Actos was discontinued as it possibly could be contributing to his edema although that seems less likely. He is having repeat ultrasound done this morning to look for increased intra-abdominal ascites although that does not appear to been present in the past. At this point I would be hesitant to stick a needle through his skin which I think would merely become another source of his edema to weep. I think his edema it is primarily in his skin in the several layers of the skin rather than contained in a pocket or ascitic type fashion within the abdomen. 2. Diabetes-continue to use insulin as necessary. Thus far has adequate control 3. Hepatocellular carcinoma with cirrhosis-does appear to be stable. Does have some evidence of cirrhosis with portal hypertension although to date he has only had minimal amounts of ascites noted. However I do think spironolactone will be helpful. His thrombocytopenia is suggests more cirrhosis than has been otherwise identified. Is also got relatively low protein status which I think is contributing to his edema as well. 4. Thrombocytopenia-continue to monitor carefully specially with the addition of Lovenox for VTE prophylaxis. Thus far things have been stable. Overall his thrombocytopenia to me would suggest a greater degree of cirrhosis than his numbers otherwise would represent. Note: Greater than 30 minutes was spent evaluating the patient on the floor, including examining the patient, discussing clinical course with clinical and nursing staff, reviewing clinical course in the computer, preparing documentation and writing orders for continued management of care, discussing status with family as appropriate, reviewing plans for the next 24 hours with both patient/family and nursing staff as appropriate.
--- NOTE | 2020-06-18 08:34 | DI.US.S_ITS ---
PROCEDURE: US ABDOMEN LIMITED INDICATIONS: ASCITES TECHNIQUE: Real-time scanning was performed of the abdominal and retroperitoneal organs, with image documentation. COMPARISON: [facility], US, US ABDOMEN LIMITED, 06/16/2020, 18:24. [facility], CT, CT ABDOMEN PELVIS W CON, 04/24/2020, 14:12. FINDINGS: There is a small amount of free abdominal fluid in all 4 quadrants. IMPRESSION: Small amount of free fluid. Dictated by: Amber Mathias M.D. on 06/18/2020 at 8:43 Approved by: Amber Mathias M.D. on 06/18/2020 at 8:48
[2020-06-18] MEDS: INSULIN ASPART 100 UNIT/ML INSULN PEN SUBCUT ×4 (08:44→21:07)
[2020-06-18] MEDS: METFORMIN HCL 500 MG TABLET PO ×2 (08:44→17:03)
[2020-06-18] MEDS: SPIRONOLACTONE 25 MG TABLET 100 MG PO ×2 (08:44→17:10)
[2020-06-18] MEDS: PANTOPRAZOLE 40 MG VIAL IV (08:44)
[2020-06-18] MEDS: DOCUSATE 100 MG CAPSULE PO ×2 (08:44→21:05)
[2020-06-18] MEDS: MAGNESIUM OXIDE 400 MG TABLET PO (08:49)
[2020-06-18] MEDS: POTASSIUM CHLORIDE 20 MEQ TAB PO ×2 (08:49→17:03)
[2020-06-18] MEDS: SODIUM CHLORIDE 0.9% FLUSH 10 ML IV ×2 (08:55→21:10)
[2020-06-18] MEDS: ENOXAPARIN 40 MG/0.4 ML SYRINGE SUBCUT ×2 (08:55→21:05)
[2020-06-18] MEDS: CALCIUM CARBONATE 500 MG TAB 1000 MG PO ×2 (12:48→17:08)
--- NOTE | 2020-06-18 13:12 | ONC.MSW ---
Description: T/C , re: inpt status Activity: Pt's called to continue care coordination, she informs this RUBBER BLOCK LAYER that pt is now inpt at [facility], with the same progressive problem with severe edema, potassium issues. RUBBER BLOCK LAYER provided pt/spouse a [place], knowing that he is active treatment and would most likely be sent to the ER again. RUBBER BLOCK LAYER will continue working with pt/family re: any outpatient resources that they may need moving forward. No further needs are indicated at this time.
[2020-06-18] MEDS: ALBUTEROL HFA MDI 60 PUFF/8 GM INHALER INH (14:54)
[2020-06-18] MEDS: OXYCODONE IR 5 MG TABLET PO (20:04)
[2020-06-18] MEDS: MELATONIN 3 MG TABLET 10 MG PO (21:06)
[2020-06-18] MEDS: INSULIN GLARGINE 100 UNIT/ML 3ML PEN 40 UNIT SUBCUT (21:08)
--- NOTE | 2020-06-18 21:52 | PC.NURSE ---
Bp 135/55, all other vitals stable. Pain 5-7/10. Given 5mg Oxycodone at 20:00 for pain 7/10 which provided mild relief. Showered this evening. Replaced dressings on abdomen wear fluid has been leaking from the skin. New wound on RLE, skin tear due to blister popping on wu. Applied alleven dressing. BG 299 this evening. Continues to stat in the low 90's on room air. Evaluated by RT but patient became frustrated and did not want intervention with oxygen stating that his oxygen always runs low.
[2020-06-19] VITALS (10 sets, daily range): BP systolic 109–132; BP diastolic 42–65; PULSE 62–81; RESP 13–22; TEMP 36.7–37.6; O2SAT 92–98
[2020-06-19] MEDS: LORazepam 2 MG/ML INJ 0.5 MG IV ×2 (00:03→21:23)
[2020-06-19 05:34] LABS: Add Manual Diff / Slide Review NO; Basophils Absolute Auto 0 /uL (0-100); Basophils Percent Auto 0.2 % (0-2); Eosinophils Absolute Auto 100 /uL (0-450); Eosinophils Percent Auto 3.4 % (2-4); Hematocrit 33.8 % (41-53); Hemoglobin 10.7 g/dL (13.5-17.5); Lymphocytes Absolute Auto 500 /uL (1100-4500); Lymphocytes Percent Auto 14.7 % (25-40); Mean Corpuscular HGB Conc 31.7 % (30-36); Mean Corpuscular Hemoglobin 25.3 PG (26-34); Mean Corpuscular Volume 79.8 fL (80-100); Monocytes Absolute Auto 400 /uL (0-900); Monocytes Percent Auto 12.2 % (3-14); Neutrophils Absolute Auto 2300 /uL (1500-7000); Neutrophils Percent Auto 69.5 % (50-75); Platelet Count 87 X10^3/uL (150-400); Red Blood Cell Count 4.24 X10^6/uL (4.5-5.9); Red Cell Distribution Width 16.4 % (11.6-14.8); White Blood Cell Count 3.4 X10^3/uL (4.5-11.0)
[2020-06-19 05:40] LABS: BUN Creatinine Ratio 30.9 (6-22); Blood Urea Nitrogen 25 mg/dL (9-20); Calcium 8.9 mg/dL (8.4-10.2); Chloride 96 mmol/L (98-107); Estimated Glomerular Filt Rate > 60.0 mL/min (>60); Glucose 115 mg/dL (80-110); HEMOLYSIS < 15 (0-50); Potassium 3.1 mmol/L (3.4-5.1); Sodium 136 mmol/L (137-145)
[2020-06-19 06:22] LABS: Carbon Dioxide 40 mmol/L (22-32)
--- NOTE | 2020-06-19 06:36 | PC.NURSE ---
pt K result went down from 3.6 to 3.1. notified precision farming specialist , Dr. Lugo, as per MD, we will deal with it as soon as we come see him later. No new orders received
[2020-06-19] MEDS: FUROSEMIDE 100 MG/10 ML VIAL 60 MG IV ×2 (06:42→19:55)
[2020-06-19] MEDS: POTASSIUM CHLORIDE 30 MEQ in SODIUM CHLORIDE 0.9% 250 ML 88.333 ML IV ×2 (07:20→09:44)
[2020-06-19] MEDS: METFORMIN HCL 500 MG TABLET PO ×2 (08:16→16:48)
[2020-06-19] MEDS: SODIUM CHLORIDE 0.9% FLUSH 10 ML IV ×3 (08:17→21:24)
[2020-06-19] MEDS: MAGNESIUM OXIDE 400 MG TABLET PO (08:17)
[2020-06-19] MEDS: POTASSIUM CHLORIDE 20 MEQ TAB PO ×2 (08:17→16:48)
[2020-06-19] MEDS: DOCUSATE 100 MG CAPSULE PO ×2 (08:17→20:59)
[2020-06-19] MEDS: PANTOPRAZOLE 40 MG VIAL IV (08:17)
[2020-06-19] MEDS: ENOXAPARIN 40 MG/0.4 ML SYRINGE SUBCUT ×2 (08:17→20:59)
[2020-06-19] MEDS: SPIRONOLACTONE 25 MG TABLET 100 MG PO ×2 (08:32→17:29)
--- NOTE | 2020-06-19 08:37 | P.PN_ITS ---
Subjective Subjective Date Patient Seen: 06/19/20 Time Patient Seen: 08:00 Interval history: Patient lying in bed when I see him this morning. Says he feels like his breathing is a bit easier that his abdomen is a little less tense than it was. Not dramatic however Ultrasound yesterday failed to show evidence of a single pocket ascites in his abdomen. Scattered small amounts of fluid but no large amounts as has been seen before in demonstrated previously Urine output yesterday was 2900 cc. Thus far over the entirety of his hospitalization he has had approximately 9.5 L in diuresis, weight is down from 157.5 kilos to 154.7 kilos, so only about a 3 kg loss via bed scale Exam Vital Signs (past 8 hours): - 06/19/20 07:02 06/19/20 08:00 Temperature 98.1 F Pulse Rate 75 64 Respiratory Rate 13 Blood Pressure 112/44 L 114/42 L Pulse Oximetry 92 98 Oxygen Delivery Method Room Air Oxygen Flow Rate 0 Objective Labs Result Diagrams: 06/19/20 04:55 06/19/20 04:55 Labs: Laboratory Results - last 24 hr 06/19/20 06/19/20 04:55 04:55 WBC 3.4 L RBC 4.24 L Hgb 10.7 L Hct 33.8 L MCV 79.8 L MCH 25.3 L MCHC 31.7 RDW 16.4 H Plt Count 87 L Neut % (Auto) 69.5 Lymph % (Auto) 14.7 L Iron % (Auto) 12.2 Eos % (Auto) 3.4 Baso % (Auto) 0.2 Neut # (Auto) 2300 Lymph # (Auto) 500 L Iron # (Auto) 400 Eos # (Auto) 100 Baso # (Auto) 0 Sodium 136 L Potassium 3.1 L Chloride 96 L Carbon Dioxide 40 H* BUN 25 H Creatinine 0.81 Estimated GFR > 60.0 BUN/Creatinine Ratio 30.9 H Glucose 115 H Calcium 8.9 PFSH Medical History Calculus of gallbladder and bile duct w/o cholecystitis or obstruction Cataracts, bilateral Cirrhosis, non-alcoholic Class 2 obesity Diabetes type 2, controlled Diabetic polyneuropathy Diastasis recti Hepatocellular carcinoma Hypertension Iron deficiency anemia Major depression in remission Microalbuminuria due to type 2 diabetes mellitus RICARDO (obstructive sleep apnea) Thoracic radiculitis Thrombocytopenia 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 Anasarca-continue with current diuresis. Still putting out about 3 L of fluid per day I think that is an appropriate amount. Continue with the oral spironolactone. Potassium actually dropped this morning so will give some IV potassium and continue the oral potassium as well with careful monitoring of his electrolytes over the next several days I spoke with his and daughter yesterday and updated them on his clinical status. I think all we can really do for him at this point is continue diuresis and that is basically what I told them. I let them know there was not a pocket of fluid or ascites in his abdomen that could be drained and provide more rapid relief. I think his anasarca is probably due to his liver disease although this is certainly an atypical and unusual situation 2. Diabetes-patient's numbers are less than perfect, I am going to put him back on his metformin see if we can get some better control 3. Thrombocytopenia-somewhat concerning giving him Lovenox with his pre- existing thrombocytopenia. However his platelet counts remain stable and I plan not to check it tomorrow although will need to check his electrolytes Patient needs continued inpatient hospitalization for continued diuresis via parental means with careful monitoring of electrolytes and renal function. He has failed as an outpatient and demonstrated some difficulty following suggestions as an outpatient as well. Note: Greater than 30 minutes was spent evaluating the patient on the floor, including examining the patient, discussing clinical course with clinical and nursing staff, reviewing clinical course in the computer, preparing documentation and writing orders for continued management of care, discussing status with family as appropriate, reviewing plans for the next 24 hours with both patient/family and nursing staff as appropriate.
[2020-06-19] MEDS: INSULIN ASPART 100 UNIT/ML INSULN PEN SUBCUT ×2 (12:43→16:47)
[2020-06-19] MEDS: MELATONIN 3 MG TABLET 10 MG PO (21:01)
[2020-06-19] MEDS: INSULIN GLARGINE 100 UNIT/ML 3ML PEN 40 UNIT SUBCUT (21:03)
[2020-06-20] VITALS (7 sets, daily range): BP systolic 125–147; BP diastolic 50–66; PULSE 75–80; RESP 14–20; TEMP 36.5–37; O2SAT 92–94
[2020-06-20] MEDS: PANTOPRAZOLE 40 MG TABLET PO (05:38)
[2020-06-20] MEDS: FUROSEMIDE 100 MG/10 ML VIAL 60 MG IV ×2 (06:48→18:45)
[2020-06-20 06:50] LABS: BUN Creatinine Ratio 31.6 (6-22); Blood Urea Nitrogen 24 mg/dL (9-20); Calcium 8.9 mg/dL (8.4-10.2); Chloride 95 mmol/L (98-107); Estimated Glomerular Filt Rate > 60.0 mL/min (>60); Glucose 133 mg/dL (80-110); HEMOLYSIS 41 (0-50); Potassium 3.9 mmol/L (3.4-5.1); Sodium 134 mmol/L (137-145)
[2020-06-20 06:56] LABS: Carbon Dioxide 39 mmol/L (22-32)
--- NOTE | 2020-06-20 07:26 | PC.NURSE ---
pt Iv site on the Right AC was leaking and upon closer inspection, has redness and white clot by the needle that looks like a slough, this sports book writer is concerned of infection. paged Dr. Lugo for advise, still awaiting Dr. Lugo's call back. pt complains of itching on the IV site but denies pain. This sports book writer pulled the IV out and LUNA Guerrero from ED restarted a new IV on Left forearm
[2020-06-20] MEDS: METFORMIN HCL 500 MG TABLET PO ×2 (08:19→16:41)
[2020-06-20] MEDS: DOCUSATE 100 MG CAPSULE PO ×2 (08:19→21:33)
[2020-06-20] MEDS: ENOXAPARIN 40 MG/0.4 ML SYRINGE SUBCUT ×2 (08:19→21:33)
[2020-06-20] MEDS: MAGNESIUM OXIDE 400 MG TABLET PO (08:19)
[2020-06-20] MEDS: POTASSIUM CHLORIDE 20 MEQ TAB PO ×2 (08:19→16:41)
[2020-06-20] MEDS: INSULIN ASPART 100 UNIT/ML INSULN PEN SUBCUT ×3 (08:20→16:39)
[2020-06-20] MEDS: SPIRONOLACTONE 25 MG TABLET 100 MG PO ×2 (08:20→16:41)
[2020-06-20] MEDS: SODIUM CHLORIDE 0.9% FLUSH 10 ML IV ×3 (08:20→21:43)
--- NOTE | 2020-06-20 08:38 | PM.PN.1 ---
Subjective Subjective Date Patient Seen: 06/20/20 Time Patient Seen: 08:20 Interval history: Patient had a reasonably good day yesterday. Still does not feel ?well?. Fact feels perhaps a little more unwell than he did yesterday. Does think his abdominal tension is less and he is able to bend over bit more without discomfort and his breathing is less affected than it was upon admission Having difficulty sleeping which may be why he is not feeling as good as he would like to. Issues around vital signs IV issues etcetera He had vigorous diuresis yesterday of about 4800 cc. He has had an additional 1500 cc overnight. Weights appear to be inaccurate as they have gone up despite That vigorous diuresis. Exam Vital Signs (past 8 hours): - 06/20/20 01:19 06/20/20 07:22 06/20/20 08:00 Temperature 97.8 F 97.7 F Pulse Rate 80 77 Respiratory Rate 16 14 Blood Pressure 125/50 L Pulse Oximetry 92 94 06/20/20 08:24 Temperature Pulse Rate Respiratory Rate Blood Pressure Pulse Oximetry 94 Oxygen Delivery Method Room Air Oxygen Flow Rate 0 Objective Labs Result Diagrams: 06/19/20 04:55 06/20/20 06:25 Labs: Laboratory Results - last 24 hr 06/17/20 06/20/20 17:50 06:25 Sodium 134 L Potassium 3.9 Chloride 95 L Carbon Dioxide 39 H BUN 24 H Creatinine 0.76 Estimated GFR > 60.0 BUN/Creatinine Ratio 31.6 H Glucose 133 H Calcium 8.9 Blood Type O Positive [facility] Medical History Calculus of gallbladder and bile duct w/o cholecystitis or obstruction Cataracts, bilateral Cirrhosis, non-alcoholic Class 2 obesity Diabetes type 2, controlled Diabetic polyneuropathy Diastasis recti Hepatocellular carcinoma Hypertension Iron deficiency anemia Major depression in remission Microalbuminuria due to type 2 diabetes mellitus RICARDO (obstructive sleep apnea) Thoracic radiculitis Thrombocytopenia 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 Anasarca-continue current diuresis. Electrolytes renal function remains stable. He is having excellent urinary output. Obviously I think this is going to take several more days to trying get him to anything close to euvolemia. 2. Electrolytes-potassium normal this morning at 3.9. Continue to monitor this on a daily basis given his oral potassium intake his diuretic therapy with loop diuretic as well as spironolactone which is a potassium-sparing diuretic. 3. Diabetes-patient's blood sugars are probably adequately controlled. I chose not to put him back on metformin yesterday after my note. No changes today. Patient needs continued diuresis which is a slow process he needs careful monitoring of his electrolytes and renal function in this process and will remain in the hospital for the next several days. Note: Greater than 30 minutes was spent evaluating the patient on the floor, including examining the patient, discussing clinical course with clinical and nursing staff, reviewing clinical course in the computer, preparing documentation and writing orders for continued management of care, discussing status with family as appropriate, reviewing plans for the next 24 hours with both patient/family and nursing staff as appropriate.
[2020-06-20] MEDS: OXYCODONE IR 10 MG TABLET PO (18:42)
[2020-06-20] MEDS: CALCIUM CARBONATE 500 MG TAB 1000 MG PO (18:44)
[2020-06-20] MEDS: MELATONIN 3 MG TABLET 10 MG PO (21:34)
[2020-06-20] MEDS: INSULIN GLARGINE 100 UNIT/ML 3ML PEN 40 UNIT SUBCUT (21:35)
[2020-06-20] MEDS: LORazepam 2 MG/ML INJ 0.5 MG IV (21:42)
[2020-06-21] VITALS (8 sets, daily range): BP systolic 116–155; BP diastolic 44–72; PULSE 62–72; RESP 16–22; TEMP 36.4–37.6; O2SAT 92–95
[2020-06-21] MEDS: diphenhydrAMINE 25 MG TABLET PO ×2 (01:22→08:04)
[2020-06-21] MEDS: PANTOPRAZOLE 40 MG TABLET PO (06:15)
[2020-06-21] MEDS: FUROSEMIDE 100 MG/10 ML VIAL 60 MG IV ×2 (06:15→20:15)
[2020-06-21 07:00] LABS: BUN Creatinine Ratio 26.2 (6-22); Blood Urea Nitrogen 22 mg/dL (9-20); Calcium 8.7 mg/dL (8.4-10.2); Chloride 95 mmol/L (98-107); Estimated Glomerular Filt Rate > 60.0 mL/min (>60); Glucose 147 mg/dL (80-110); HEMOLYSIS < 15 (0-50); Potassium 3.4 mmol/L (3.4-5.1); Sodium 135 mmol/L (137-145)
[2020-06-21 07:11] LABS: Carbon Dioxide 40 mmol/L (22-32)
[2020-06-21] MEDS: INSULIN ASPART 100 UNIT/ML INSULN PEN SUBCUT ×4 (08:03→20:22)
[2020-06-21] MEDS: DOCUSATE 100 MG CAPSULE PO ×2 (08:04→20:15)
[2020-06-21] MEDS: POTASSIUM CHLORIDE 20 MEQ TAB PO ×2 (08:04→17:43)
[2020-06-21] MEDS: METFORMIN HCL 500 MG TABLET PO ×2 (08:04→17:43)
[2020-06-21] MEDS: ENOXAPARIN 40 MG/0.4 ML SYRINGE SUBCUT ×2 (08:04→20:15)
[2020-06-21] MEDS: MAGNESIUM OXIDE 400 MG TABLET PO (08:04)
[2020-06-21] MEDS: SODIUM CHLORIDE 0.9% FLUSH 10 ML IV ×2 (08:05→20:23)
[2020-06-21] MEDS: SPIRONOLACTONE 25 MG TABLET 100 MG PO ×2 (08:06→17:43)
--- NOTE | 2020-06-21 08:35 | PM.PN.1 ---
Subjective Subjective Date Patient Seen: 06/21/20 Time Patient Seen: 08:35 Interval history: Patient had a reasonably good night. Feels better and improved with clear reduction in swelling in his abdomen and legs this morning Yesterday he did not feel well. Had difficulty moving was not a good day at all Really nothing else new or different and again as above this morning so far is much better Patient with 4100 cc out yesterday via urine an additional 300 so far overnight Exam Vital Signs (past 8 hours): Oxygen Delivery Method Room Air Oxygen Flow Rate 0 Narrative Exam Narrative: Patient has tense edema in his abdomen is now resolving, he has pitting edema in his abdomen and LEs pitting edema of bilateral lower extremities all the way up to the thigh Objective Labs Result Diagrams: 06/19/20 04:55 06/21/20 06:10 Labs: Laboratory Results - last 24 hr 06/21/20 06:10 Sodium 135 L Potassium 3.4 Chloride 95 L Carbon Dioxide 40 H* BUN 22 H Creatinine 0.84 Estimated GFR > 60.0 BUN/Creatinine Ratio 26.2 H Glucose 147 H Calcium 8.7 PFSH Medical History Calculus of gallbladder and bile duct w/o cholecystitis or obstruction Cataracts, bilateral Cirrhosis, non-alcoholic Class 2 obesity Diabetes type 2, controlled Diabetic polyneuropathy Diastasis recti Hepatocellular carcinoma Hypertension Iron deficiency anemia Major depression in remission Microalbuminuria due to type 2 diabetes mellitus RICARDO (obstructive sleep apnea) Thoracic radiculitis Thrombocytopenia 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 Anasarca-improving day by day by day. It is striking how much fluid he clearly still has within the abdominal wall based on the fact that he is now gone from being tense and we being to merely pitting edema. Again no good etiology for this beyond his liver disease. 2. Electrolytes-potassium normal this morning. Renal function remains normal. Continue with current diuretic therapy and electrolyte replacement therapy and plan to recheck numbers tomorrow 3. Diabetes-patient's blood sugars are not perfectly controlled but seem adequate for now. No numbers over 200 yesterday. No change in treatment plan for diabetes Patient requires ongoing diuresis. He failed outpatient therapy and was difficult to monitor in control in part because of his residence on [facility]. At this point he needs more diuresis and I think we need to continue this with parental diuretics in addition to the oral spironolactone. Hopefully over the next 2 or 3 days we can transition him to oral furosemide and we will verify stability with his electrolytes and renal function and then we can approach thoughts about him returning home. However I think that still several days away at best. Note: Greater than 20 minutes was spent evaluating the patient on the floor, including examining the patient, discussing clinical course with clinical and nursing staff, reviewing clinical course in the computer, preparing documentation and writing orders for continued management of care, discussing status with family as appropriate, reviewing plans for the next 24 hours with both patient/family and nursing staff as appropriate.
[2020-06-21] MEDS: OXYCODONE IR 10 MG TABLET PO ×2 (11:29→17:48)
--- NOTE | 2020-06-21 13:39 | CM.DPNOTE ---
DCP Cont According to Dr Glaser, medical management is expected to continue over next 2-3 days. DCP remains return home w/supportive family. Dr Glaser does not anticipate any DC needs from DCP team. Following closely in case any DC questions or concerns arise before DC JW
[2020-06-21] MEDS: MELATONIN 3 MG TABLET 10 MG PO (20:15)
[2020-06-21] MEDS: INSULIN GLARGINE 100 UNIT/ML 3ML PEN 40 UNIT SUBCUT (20:22)
[2020-06-22] VITALS (8 sets, daily range): BP systolic 109–139; BP diastolic 44–75; PULSE 56–69; RESP 16–20; TEMP 36.1–37.1; O2SAT 92–97
[2020-06-22] MEDS: OXYCODONE IR 10 MG TABLET PO ×3 (00:06→18:45)
[2020-06-22] MEDS: LORazepam 2 MG/ML INJ 0.5 MG IV (00:06)
--- NOTE | 2020-06-22 05:02 | PC.NURSE ---
Addendum entered by Crystal Yadav R.N. 06/22/20 05:44: 0538 Received notification from lab of critical lab value: CARBON DIOXIDE 42(H). Dr. Glaser and Natali, measurement coordinator, notified. No further instructions at this time. Original Note: PIV on left hand/wrist . Discontinued. PIV on left forearm still patent.
[2020-06-22 05:24] LABS: BUN Creatinine Ratio 24.1 (6-22); Blood Urea Nitrogen 20 mg/dL (9-20); Calcium 8.6 mg/dL (8.4-10.2); Chloride 93 mmol/L (98-107); Estimated Glomerular Filt Rate > 60.0 mL/min (>60); Glucose 163 mg/dL (80-110); HEMOLYSIS < 15 (0-50); Potassium 3.7 mmol/L (3.4-5.1); Sodium 134 mmol/L (137-145)
[2020-06-22 05:37] LABS: Carbon Dioxide 42 mmol/L (22-32)
[2020-06-22] MEDS: FUROSEMIDE 100 MG/10 ML VIAL 60 MG IV ×3 (06:50→22:20)
[2020-06-22] MEDS: SODIUM CHLORIDE 0.9% 250 ML 21 ML IV (06:51)
[2020-06-22] MEDS: POTASSIUM CHLORIDE 20 MEQ TAB PO ×2 (08:16→16:45)
[2020-06-22] MEDS: DOCUSATE 100 MG CAPSULE PO ×2 (08:16→20:08)
[2020-06-22] MEDS: METFORMIN HCL 500 MG TABLET PO ×2 (08:17→16:45)
[2020-06-22] MEDS: ENOXAPARIN 40 MG/0.4 ML SYRINGE SUBCUT ×2 (08:17→20:08)
[2020-06-22] MEDS: MAGNESIUM OXIDE 400 MG TABLET PO (08:17)
[2020-06-22] MEDS: SODIUM CHLORIDE 0.9% FLUSH 10 ML IV ×3 (08:18→20:09)
[2020-06-22] MEDS: INSULIN ASPART 100 UNIT/ML INSULN PEN SUBCUT ×4 (08:20→20:08)
--- NOTE | 2020-06-22 08:20 | PM.PN.1 ---
Subjective Subjective Date Patient Seen: 06/22/20 Time Patient Seen: 08:00 Interval history: Patient lying in bed this morning. Had a good day yesterday. Feels like his abdomen is slowly improving becoming less tense. Able to do little bit more. No new complaints or issues. Has not really been up out of bed other than to the bathroom or bedside commode. Exam Vital Signs (past 8 hours): Oxygen Delivery Method Room Air Oxygen Flow Rate 0 Narrative Exam Narrative: As yesterday, abdomen now with pitting edema rather than tense tight edema and lower extremities with lesser pitting edema, today's exam not appreciably different than yesterday's Objective Labs Result Diagrams: 06/19/20 04:55 06/22/20 04:55 Labs: Laboratory Results - last 24 hr 06/22/20 04:55 Sodium 134 L Potassium 3.7 Chloride 93 L Carbon Dioxide 42 H* BUN 20 Creatinine 0.83 Estimated GFR > 60.0 BUN/Creatinine Ratio 24.1 H Glucose 163 H Calcium 8.6 PFSH Medical History Calculus of gallbladder and bile duct w/o cholecystitis or obstruction Cataracts, bilateral Cirrhosis, non-alcoholic Class 2 obesity Diabetes type 2, controlled Diabetic polyneuropathy Diastasis recti Hepatocellular carcinoma Hypertension Iron deficiency anemia Major depression in remission Microalbuminuria due to type 2 diabetes mellitus RICARDO (obstructive sleep apnea) Thoracic radiculitis Thrombocytopenia 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 Anasarca-patient had diminished urinary output yesterday of only 2600 cc and 600 overnight. I am going to try increasing his furosemide from twice daily to 3 times a day see if we can continue to get at least 4 L of diuresis per day. There is some clinical improvement over where he was upon admission but this is been a very slow process unfortunately which is why he still in the hospital. Again my goal for him is to have significant improvement and reach a place where we can be confident switching him to oral diuretics which will continue his diuresis, as I do not expect to be able to complete his diuresis during this hospitalization. At this point given the drop-off in urine output yesterday I am not convinced we are there. 2. Electrolyte/renal-patient's potassium is normal this morning. Continue with current oral potassium supplementation and recheck tomorrow. Renal function remains normal. Patient still with a bit of a probable mixed respiratory and metabolic alkalosis. His carbon dioxide level on his BMP has hovered around 39-42. 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 No specific intervention as we continue with diuresis. 3. Thrombocytopenia-patient continues on Lovenox for VTE prophylaxis. Been several days since we checked a CBC I will plan to do that tomorrow to mostly repeat his platelet count. 4. Diabetes-patient's blood sugar remains adequately controlled for now. No change in diabetes management 5. Activity-I would like patient up and around more than maybe actually promote more vigorous diuresis. I have consulted Physical therapy to see him and see if we can get him moving a bit more. He may not have specific skilled needs but I think an overall assessment is appropriate and an effort to get him up out of bed is entirely appropriate. Patient likely to be hospitalized for several more days through the weekend. Hopefully we can consider switching him to an oral diuretic regimen sometime in the next 48 hours. Will need monitoring fall doing this in the hospital as well as monitoring of electrolytes after the switch to oral diuretics has been made. He should continue on oral spironolactone and his furosemide should be transition to an oral form again when things seem a bit more stable. Dr. Lugo to see patient over the weekend on Thursday and Thursday in my absence. Patient likely to still be hospitalized on Thursday and I will plan to see him at that time. Note: Greater than 30 minutes was spent evaluating the patient on the floor, including examining the patient, discussing clinical course with clinical and nursing staff, reviewing clinical course in the computer, preparing documentation and writing orders for continued management of care, discussing status with family as appropriate, reviewing plans for the next 24 hours with both patient/family and nursing staff as appropriate.
[2020-06-22] MEDS: SPIRONOLACTONE 25 MG TABLET 100 MG PO ×2 (08:31→16:46)
--- NOTE | 2020-06-22 13:07 | PT.IIE ---
Current Diagnoses Other ascites (06/17/20) Surgical History (Last Reviewed 06/16/20 @ 21:48 by Renetta Mart MD) History of benign tracheal tumor History of umbilical hernia repair Medical History (Last Reviewed 06/16/20 @ 21:48 by Renetta Mart MD) Calculus of gallbladder and bile duct w/o cholecystitis or obstruction Cataracts, bilateral Cirrhosis, non-alcoholic Class 2 obesity Diabetes type 2, controlled Diabetic polyneuropathy Diastasis recti Hepatocellular carcinoma Hypertension Iron deficiency anemia Major depression in remission Microalbuminuria due to type 2 diabetes mellitus RICARDO (obstructive sleep apnea) Thoracic radiculitis Thrombocytopenia 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 able to make needs known Mobility and Gait independent for mobility without using AD. Has been having SOB d/t distented abdomen. Has difficulty bending down and maintained in seated position. Pt also stated he has been quite immobilized for the past 2 months d/t significant pain at his abdomen. Activities of Daily Living and IADL's He also stated he has had 10 falls for the past couple months from climbing stairs or getting in/ out of his bed. independent for ADLs and IADLs without AD. does have difficulty bend down to pull his pants up d/t distented abdomen. Pt wears ropes usually and uses sock aid to carlie socsk. Pt has not been driving since he has difficulty in seating position . Prior Functional Level (Other details) He also stated he has had 10 falls for the past couple months from climbing stairs or getting in/ out of his bed since he couldnt see the ground clearly d/t abdomen Social History Household Members spouse Living Arrangements House Number of Floors (Floors) One Floor Number of Stairs To Enter/Railing? 5 FRANCIE with b rails pt has walking sticks Home Environment Standard Height Toilet,Walk in Shower,Tub/Shower Home Equipment Sock Aid Employment Status Retired Additional Social History Comment Pt lives with his in [facility] who is somewhat impaired. She has R facial paralysis from shingles and overall not that good with mobility as he stated. Pt's dtr from [place] has been staying with them to assist but will not be able to stay for long. Pt stated they have no one to assist once her dtr goes back to [place]. M2 PT-IP Current Condition Start: 06/22/20 08:27 Freq: NEEDED Status: Active Protocol: Document 06/22/20 12:05 (Rec: 06/22/20 12:34 [email or web address]) Physical Therapy Current Condition Current Condition Evaluation Date 06/22/20 Treatment Diagnosis Anasarca, imbalanced electrolyte, peripheral edema, generalized weakness Onset Date 2 months ago Precautions Other Precautions activity order from dr. Glaser Activity-I would like patient up and around more than maybe actually promote more vigorous diuresis. I have consulted Physical therapy to see him and see if we can get him moving a bit more. He may not have specific skilled needs but I think an overall assessment is appropriate and an effort to get him up out of bed is entirely appropriate. Weight Bearing Status Weight Bearing Status Full Weight Bearing M3 PT-IP Subjective Start: 06/22/20 08:27 Freq: NEEDED Status: Active Protocol: Document 06/22/20 12:05 (Rec: 06/22/20 12:34 [email or web address]) Subjective Physical Therapy Visit Type Type Initial Evaluation Visit Start Time 11:05 Visit Stop Time 11:40 Total Visit Minutes [address] WORKER Visits 0 Physical Therapy Visit Comments Patient Comments Im feeling better today Patient Goals to regain mobility and strength M4 PT-IP Mobility and Gait Start: 06/22/20 08:27 Freq: NEEDED Status: Active Protocol: Document 06/22/20 12:05 (Rec: 06/22/20 12:34 [email or web address]) PT-Bed Mobility Assessment Rolling Type of Rolling Log Rolling,Roll to Left Level of Assist Standby Assistance Supine to Sit Supine to Sit Standby Assistance,Bedrails Sit to Supine Sit to Supine Standby Assistance,Bedrails Scooting Scooting to Edge of Bed Standby Assistance PT-Transfer Assessment Sit to and From Stand Sit to and from Stand Standby Assistance,Use of Upper Extremities Equipment Transfer Assistive Device Gait Belt Orthotic/Prosthetic Devices or Brace: No Transfers Transfer Destination Bed Transfer Technique Stand Step Pivot Transfer Ability Level of Assist Standby Assistance,Use of Upper Extremities Comments Mobility Comments pt was in bed upon PT arrival. AxOx4 BP 140/74. Pt can converse in short sentences only d/t his distented abdomen and he often gets SOB. Pt then log rolled to L side with use of L bed rail and he was struggling to push from SL to seated position who also held his breath in transition. Pt took approx 20 secs to complete. Pt then slowly scooted forward to EOB SBA. He then stood up by pushing off with RUE from rail at foot of the bed and rocking himself forward to gain moementum. Pt then proceed to amb without FWW SBA. Pt completed 1 lap of entire AC unit and he was able to maintain conversation with short sentences d/t SOB. There's significant deviation noted. He did take a minute break in midway to rest. Pt then returned to his room and sat at EOB. BP at 125/71. He was able to transfer from seated position to SL followed by log rolling to center of the bed SBA with use of L bedrail. Call light placed within reach. Gait Assessment Gait Gait Assistance Required: Standby Assistance Distance (Feet) 370 Able to Maintain Weight Bearing Status Yes During Gait Assistive Devices Assistive Device Gait Belt Orthotic/Prosthetic Devices or Brace: No Gait Deviations General Gait Pattern Decreased Stride Length, Decreased Feet Clearance Factors Limiting Gait Function Factors Limiting Gait Function Decreased Activity Tolerance, Limited Range of Motion,Pain, Poor Balance,Respiratory Distress Comments Gait Comments see mobility comments. Stair Climbing Assessment Comments Stair Climbing Comments did not assess yet PT-Balance Assessment Sitting Balance and Reactions Static Sitting Balance Ability Normal Dynamic Sitting Balance Ability Normal Standing Balance and Reactions Static Standing Balance Ability Normal Dynamic Standing Balance Ability Good Device Used none M5 PT-IP Objective Assessments Start: 06/22/20 08:27 Freq: NEEDED Status: Active Protocol: Document 06/22/20 12:05 (Rec: 06/22/20 13:06 [id number]) Orientation Orientation/Cognition Level of Alertness Alert Orientation Name,Age,Birthday,Month,Date, Year,Day of Week,Place, Situation Language Function Ability No Deficits Noted Safety Awareness Understands Safety Issues Memory Description No Deficits Noted Gross Range of Motion Upper Extremity ROM Assessment Within Functional Limits Lower Extremity ROM Assessment Within Functional Limits Strength Upper Extremity Strength Assessment Within Functional Limits Lower Extremity Strength Assessment Within Functional Limits Coordination Assessment Gross Coordination Gross Coordination WNL Sensation Assessment Sensation Gross Sensation WNL Muscle Tone Muscle Tone WNL Yes Other Assessments Other Other Assessments pitting edema noted from chest down abdomen= severely distented with 2+ pitting edema LEs = grossly 2 to 3+ pitting edema, worse on B thighs. M6 PT-IP Treatment Start: 06/22/20 08:27 Freq: NEEDED Status: Active Protocol: Document 06/22/20 12:05 (Rec: 06/22/20 13:06 [id number]) Physical Therapy Treatment Education Education Provided Safety M7 PT-IP Assessment and Plan Start: 06/22/20 08:27 Freq: NEEDED Status: Active Protocol: Document 06/22/20 12:05 (Rec: 06/22/20 13:06 [id number]) PT Summary Assessment and Plan Potential Rehabilitation Potential Good Status of Condition at Evaluation Evolving Summary Impairments Pain,ROM,Strength,Balance, Coordination,Sensation,Bed Mobility,Transfers,Gait, Activity Tolerance Assessment Summary Pt is 69yo male admitted to due to [place], imbalanced electrolyte, generalized weakness. Medical team is assisting pt to faciliate diuresis to reduce his waterweight. PLOF= independent for all mobility without AD but has difficulty bending down and maintained in seated position d/t his distented abdomen. He does have multiple falls because of the same reason for the past couple months. CLOF= pt shows good mobility but easily gets SOB. He does have difficulty getting in and out of bed and needed to use bed rail for push off. Pt is unable to drive and has difficulty reaching down with multiple falls, in addition, pt's dtr will not be able to stay long to assist both pt and his . In my professional opinion, d/t limited access to assistance that pt's need, home health would be a good option upon DC. Goals Bed Mobility Goal Standby Assistance Transfer Goal Standby Assistance Gait Goal Standby Assistance Gait Distance 500 Other Goals 5 FRANCIE with B rails Days to Meet Goals 10 Frequency of Treatment Frequency Of Treatment Once a Day Treatment Plan Physical Therapy Treatment Plan Bed Mobility Training,Transfer Training,Gait Training, Therapeutic Exercise,Balance Retraining,Discharge Planning, Hot or Cold Pack,Neuromuscular Re-ed Other Recommendations and Next Treatment check vitals Focus bed mobility, log roll mobility as elza stair if appropriate Recommendations To Nursing Amount of Assist Needed Standby Assistance Discharge Recommendations PT Discharge Recommendations Home with Assistance,Home Health Equipment Needed for Home Before raised toilet seat Discharge treer grab bars in shower/ toilet BSC Transportation Needs at Discharge Private Vehicle
[2020-06-22] MEDS: diphenhydrAMINE 25 MG TABLET PO ×2 (13:10→20:08)
--- NOTE | 2020-06-22 14:00 | PC.NURSE ---
The pt has not used his call light all shift for me but makes his needs known when I am in the room. This INFO ANALYST and my nurse have been doing hourly checks on patient but pt has expressed to me that he doesn't feel like people are around as much as they were the other day. I reminded him that if he ever needs anything and doesn't see one of us to use his call light. Pt is also concerned about not being able to call with his room phone since it only dials local. I told him to call us for help anytime he wants to call his and that it was easy to do so. I have had to remind him multiple times to call me for help with the phone because he has expressed concern about it more than once even though I have already explained the way the phones works to him.
--- NOTE | 2020-06-22 15:30 | PC.NURSE ---
AM Shift note. pt AO and receptive to care. Left PIV infusing lasix twice during shift. Bowel tones positive and passing gas. ABD distended and pt reporting moderate pain managed with oxycodone. Scattered open areas weeping and covered with border foam dressings. +4 pitting edema to bilateral lower extremities, scrotal and penial edema patient reported but refused to let staff assess. ACHS 145, 183. SBA in room and IND using urinal. Benadryl administered around 1310 for rash and irritation to neck area and improving. I had to re-educate patient several times throughout shift on how to use phone and I also provided education twice on why the edema is/could be occurring. I encouraged pt to reposition and ambulate often, however pt chose to lay on his back most of shift.
[2020-06-22] MEDS: MELATONIN 3 MG TABLET 10 MG PO (20:08)
[2020-06-22] MEDS: INSULIN GLARGINE 100 UNIT/ML 3ML PEN 40 UNIT SUBCUT (20:09)
[2020-06-23] MEDS: LORazepam 2 MG/ML INJ 0.5 MG IV ×2 (00:38→18:51)
[2020-06-23 03:29] VITALS: O2SAT 93
[2020-06-23 05:32] LABS: Add Manual Diff / Slide Review NO; Basophils Absolute Auto 0 /uL (0-100); Basophils Percent Auto 0.5 % (0-2); Eosinophils Absolute Auto 100 /uL (0-450); Eosinophils Percent Auto 4.6 % (2-4); Hematocrit 34.2 % (41-53); Hemoglobin 11.1 g/dL (13.5-17.5); Lymphocytes Absolute Auto 500 /uL (1100-4500); Lymphocytes Percent Auto 20.8 % (25-40); Mean Corpuscular HGB Conc 32.4 % (30-36); Mean Corpuscular Hemoglobin 25.4 PG (26-34); Mean Corpuscular Volume 78.2 fL (80-100); Monocytes Absolute Auto 400 /uL (0-900); Monocytes Percent Auto 15.7 % (3-14); Neutrophils Absolute Auto 1500 /uL (1500-7000); Neutrophils Percent Auto 58.4 % (50-75); Platelet Count 70 X10^3/uL (150-400); Red Blood Cell Count 4.37 X10^6/uL (4.5-5.9); Red Cell Distribution Width 16.4 % (11.6-14.8); White Blood Cell Count 2.6 X10^3/uL (4.5-11.0)
[2020-06-23 05:40] LABS: BUN Creatinine Ratio 23.2 (6-22); Blood Urea Nitrogen 19 mg/dL (9-20); Calcium 8.7 mg/dL (8.4-10.2); Chloride 94 mmol/L (98-107); Estimated Glomerular Filt Rate > 60.0 mL/min (>60); Glucose 129 mg/dL (80-110); HEMOLYSIS < 15 (0-50); Potassium 3.4 mmol/L (3.4-5.1); Sodium 135 mmol/L (137-145)
[2020-06-23 06:16] LABS: Carbon Dioxide 40 mmol/L (22-32)
[2020-06-23 08:02] VITALS: BP 119/69; PULSE 60; RESP 18; TEMP 36.9; O2SAT 92
[2020-06-23 08:24] VITALS: O2SAT 93
[2020-06-23] MEDS: DOCUSATE 100 MG CAPSULE PO ×2 (09:06→22:23)
[2020-06-23] MEDS: METFORMIN HCL 500 MG TABLET PO ×2 (09:06→16:11)
[2020-06-23] MEDS: POTASSIUM CHLORIDE 20 MEQ TAB PO ×2 (09:06→16:10)
[2020-06-23] MEDS: OXYCODONE IR 5 MG TABLET PO (09:06)
[2020-06-23] MEDS: MAGNESIUM OXIDE 400 MG TABLET PO (09:06)
[2020-06-23] MEDS: ENOXAPARIN 40 MG/0.4 ML SYRINGE SUBCUT ×2 (09:07→22:25)
[2020-06-23] MEDS: SPIRONOLACTONE 25 MG TABLET 100 MG PO ×3 (09:09→16:10)
[2020-06-23] MEDS: CALCIUM CARBONATE 500 MG TAB 1000 MG PO (09:09)
--- NOTE | 2020-06-23 09:13 | P.PN_ITS ---
Subjective Subjective Date Patient Seen: 06/23/20 Time Patient Seen: 09:13 Interval history: Patient doing well today. Sitting on the side of the bed. Up walking around. Still pretty has tense distended abdomen. Diuresis is continuing to progress. Increase Lasix yesterday from twice a day to 3 times a day. Shooting for about 4 L of water loss a day. Tolerating it well. Electrolytes appear to be stable not in a lot of pain. Has renal no questions at this time. Comfortable with being in the hospital he says. Exam Vital Signs (past 8 hours): - 06/23/20 03:29 06/23/20 08:02 06/23/20 08:24 Temperature 98.5 F Pulse Rate 60 Respiratory Rate 18 Blood Pressure 119/69 Pulse Oximetry 93 92 93 Oxygen Delivery Method Room Air Oxygen Flow Rate 0 Narrative Exam Narrative: Gen.: Alert and oriented x3 no apparent distress. HEENT: Or mucosa is moist neck is supple Cardio: S1-S2 regular rate and rhythm no murmurs appreciated. Respiratory: Lungs are clear to auscultation no wheezes or crackles normal respiratory effort. Abdomen: Soft in spots but very tense distended abdomen. Extremities: Trace lower extremity edema. Neurologic: Grossly intact. Objective Labs Result Diagrams: 06/23/20 05:09 06/23/20 05:09 Labs: Laboratory Results - last 24 hr 06/23/20 06/23/20 05:09 05:09 WBC 2.6 L RBC 4.37 L Hgb 11.1 L Hct 34.2 L MCV 78.2 L MCH 25.4 L MCHC 32.4 RDW 16.4 H Plt Count 70 L Neut % (Auto) 58.4 Lymph % (Auto) 20.8 L Pacific % (Auto) 15.7 H Eos % (Auto) 4.6 H Baso % (Auto) 0.5 Neut # (Auto) 1500 Lymph # (Auto) 500 L Pacific # (Auto) 400 Eos # (Auto) 100 Baso # (Auto) 0 Sodium 135 L Potassium 3.4 Chloride 94 L Carbon Dioxide 40 H* BUN 19 Creatinine 0.82 Estimated GFR > 60.0 BUN/Creatinine Ratio 23.2 H Glucose 129 H Calcium 8.7 PFSH Medical History Calculus of gallbladder and bile duct w/o cholecystitis or obstruction Cataracts, bilateral Cirrhosis, non-alcoholic Class 2 obesity Diabetes type 2, controlled Diabetic polyneuropathy Diastasis recti Hepatocellular carcinoma Hypertension Iron deficiency anemia Major depression in remission Microalbuminuria due to type 2 diabetes mellitus RICARDO (obstructive sleep apnea) Thoracic radiculitis Thrombocytopenia 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 Anasarca-patient urine output improved. Continue with 3 times a day Lasix. Monitor closely electrolytes. Bicarb still elevated blood pressure pulse is within tolerable limits. Continue to increase diuresis. Patient still has a very tense abdomen. With the significant fluid overload. Will continue with IV Lasix. Through the weekend transitioning him over on Thursday to orals as per Dr. Glaser. 2. Electrolyte/renal-CO2 still elevated electrolytes look good kidney function looks okay. Continue to monitor closely due to the amount of diuresis were doing. Continue with potassium replacement as needed. 3. Thrombocytopenia-patient blood counts are still low. Continue with DVT prophylaxis recheck CBC on Thursday.. 4. Diabetes-patient's blood sugar remains adequately controlled for now. No change in diabetes management 5. Activity-patient was out of bed much better this yesterday they were able to get up and walk around the halls which he says he is doing well is getting up frequently to go to the bathroom. Disposition and plan increased diuresis today and tomorrow. Re-evaluate on Thursday for her oral medications and possible discharge.
[2020-06-23] MEDS: SODIUM CHLORIDE 0.9% FLUSH 10 ML IV ×2 (09:14→22:32)
[2020-06-23] MEDS: FUROSEMIDE 100 MG/10 ML VIAL 60 MG IV ×3 (09:15→22:32)
--- NOTE | 2020-06-23 12:23 | CM.DPC ---
DCP Con't Met with patient at bedside, he was alert and oriented this date. He reported that his transportation support for d/c will be different after Thursday06/26/20 as 's daughters will be leaving and is still unable to drive. Patient identified that [place] [employer] [place] and will do the same when he arrives at [facility] he might require general information about taxi. Patient may need a priority boarding pass. PLAN: Anticipate d/c home with and questionable referral for [facility] (only agency that services [facility]). F2F left in red chart for provider signature if home health needed, PT following.
[2020-06-23] MEDS: INSULIN ASPART 100 UNIT/ML INSULN PEN SUBCUT ×2 (12:58→16:11)
[2020-06-23] MEDS: diphenhydrAMINE 25 MG TABLET PO ×2 (14:06→22:23)
--- NOTE | 2020-06-23 14:26 | OT.IPNOTE ---
Chart reviewed and discussed case with P.T., Nursing, and case management. Pt provided with technology support analyst, foot scrubber and shoe horn. Pt states he uses a sock aide to don socks at baseline and has been using sticks to assist with LB dressing. Pt states no further need for training with [facility] DME as he has been using sticks to perform already. No further OT needs per pt, and nursing. Will discharge OT order.
[2020-06-23 15:50] VITALS: BP 118/50; PULSE 80; RESP 20; TEMP 36.4; O2SAT 94
[2020-06-23] MEDS: OXYCODONE IR 10 MG TABLET PO (16:11)
[2020-06-23 20:36] VITALS: O2SAT 98
[2020-06-23] MEDS: MELATONIN 3 MG TABLET 10 MG PO (22:22)
[2020-06-23] MEDS: INSULIN GLARGINE 100 UNIT/ML 3ML PEN 40 UNIT SUBCUT (22:26)
[2020-06-23 23:35] VITALS: BP 116/50; PULSE 70; RESP 18; TEMP 36.8; O2SAT 95
[2020-06-24] VITALS (7 sets, daily range): BP systolic 103–140; BP diastolic 47–72; PULSE 57–64; RESP 14–20; TEMP 36.6–37; O2SAT 93–95
[2020-06-24 05:56] LABS: BUN Creatinine Ratio 21.5 (6-22); Blood Urea Nitrogen 20 mg/dL (9-20); Calcium 8.7 mg/dL (8.4-10.2); Chloride 95 mmol/L (98-107); Estimated Glomerular Filt Rate > 60.0 mL/min (>60); Glucose 88 mg/dL (80-110); HEMOLYSIS < 15 (0-50); Potassium 3.4 mmol/L (3.4-5.1); Sodium 136 mmol/L (137-145)
[2020-06-24 06:02] LABS: Carbon Dioxide 39 mmol/L (22-32)
--- NOTE | 2020-06-24 07:35 | P.PN_ITS ---
Subjective Subjective Date Patient Seen: 06/24/20 Time Patient Seen: 07:35 Interval history: Patient did well overnight. Continuing to diurese no significant changes. Recheck CBC tomorrow as last CBC showed pancytopenia. Unsure etiology. Patient has no signs or symptoms of bruising bleeding. Eating well ambulating better. Still has a significant distension and swelling to his abdomen. Otherwise no complaints Exam Vital Signs (past 8 hours): - 06/24/20 00:54 Pulse Oximetry 95 Oxygen Delivery Method Room Air Oxygen Flow Rate 0 Narrative Exam Narrative: Gen.: Alert good historian HEENT: Pupils equal round and reactive or mucosa is moist neck is supple Cardio: S1-S2 regular rate and rhythm no murmurs appreciated. Respiratory: Lungs are clear to auscultation no wheezes or crackles normal respiratory effort. Abdomen: Tense distended. Positive bowel tones. Extremities: Full range of motion no appreciable weakness no cyanosis or edema. Neurologic: Grossly intact. Objective Labs Result Diagrams: 06/23/20 05:09 06/24/20 05:24 Labs: Laboratory Results - last 24 hr 06/24/20 05:24 Sodium 136 L Potassium 3.4 Chloride 95 L Carbon Dioxide 39 H BUN 20 Creatinine 0.93 Estimated GFR > 60.0 BUN/Creatinine Ratio 21.5 Glucose 88 Calcium 8.7 PFSH Medical History Calculus of gallbladder and bile duct w/o cholecystitis or obstruction Cataracts, bilateral Cirrhosis, non-alcoholic Class 2 obesity Diabetes type 2, controlled Diabetic polyneuropathy Diastasis recti Hepatocellular carcinoma Hypertension Iron deficiency anemia Major depression in remission Microalbuminuria due to type 2 diabetes mellitus RICARDO (obstructive sleep apnea) Thoracic radiculitis Thrombocytopenia 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 Anasarca-patient urine output improved. Continue with 3 times a day Lasix. Potassium a little bit low today. Still good urine output. No significant change in abdominal distention although maybe a little bit less tense. Patient thinks so as well. 2. Electrolyte/renal-CO2 still elevated electrolytes look good kidney function looks okay. Continue to monitor closely due to the amount of diuresis were doi ng. Increased oral potassium to 3 times a day. 3. Thrombocytopenia-patient blood counts are still low. Still on DVT prophylaxis platelet count low. Recheck CBC tomorrow. 4. Diabetes-patient's blood sugar remains adequately controlled for now. No change in diabetes management 5. Activity-patient was out of bed much better this yesterday they were able to get up and walk around the halls which he says he is doing well is getting up frequently to go to the bathroom. Disposition and plan adjust potassium. Possible oral medication tomorrow. Discharge anticipated in 24-48 hours
[2020-06-24] MEDS: POTASSIUM CHLORIDE 20 MEQ TAB PO ×3 (08:18→16:58)
[2020-06-24] MEDS: SPIRONOLACTONE 25 MG TABLET 100 MG PO ×2 (08:19→17:06)
[2020-06-24] MEDS: MAGNESIUM OXIDE 400 MG TABLET PO (08:19)
[2020-06-24] MEDS: DOCUSATE 100 MG CAPSULE PO ×2 (08:19→20:57)
[2020-06-24] MEDS: FUROSEMIDE 100 MG/10 ML VIAL 60 MG IV ×3 (08:19→22:21)
[2020-06-24] MEDS: METFORMIN HCL 500 MG TABLET PO ×2 (08:19→16:58)
[2020-06-24] MEDS: ENOXAPARIN 40 MG/0.4 ML SYRINGE SUBCUT ×2 (08:23→20:58)
[2020-06-24] MEDS: SODIUM CHLORIDE 0.9% FLUSH 10 ML IV ×2 (08:24→21:09)
[2020-06-24] MEDS: CALCIUM CARBONATE 500 MG TAB 1000 MG PO (08:27)
[2020-06-24] MEDS: OXYCODONE IR 5 MG TABLET PO (10:22)
--- NOTE | 2020-06-24 10:51 | CM.DPC ---
Addendum entered by CORBIN Morales 06/24/20 14:50: ADD: Per PT, some concerns regarding if pt gets taxi to [facility] and then has to ambulate long distance onto and off ferr may be too exhausting. SW discussed that [facility] has been helpful in previous discharges with other patients of getting them to the ferry and signaling for ferry attendant to bring w/c and wheel pt on and off of the ferry. PT feels that this would be a safe and appropriate option if pt needs taxi rather than family POV at d/c. DCP would just need to alert Enrique to the fact that w/c needed for patient at [facility] terminal. BF Original Note: DCP Cont: Per MD, pt seems to be making progress but still needing to be diuresed and per PT, currently recommending home with HH support. MATTHEW met briefly bedside with pt and explained role and he confirms he is feeling a little better today but still very bloated. MATTHEW discussed the HH recommendation and explained services and frequency and currently pt is agreeable to HH referral and then to see how he progresses with PT to determine if HH needed at d/c. MATTHEW provided the HH Choice list but informed pt that [facility] only agency that services [facility] and pt agreeable with [facility] referral. MATTHEW faxed new referral to [facility] and called with new referral and possible d/c in 1-2 days pending progress. Previously F2F placed on pt chart for MD to sign and PCP will be back to round on Thursday and determine if agreeable with HH. Plan: SW to follow closely for [facility] review and further PT to determine if HH still needed at d/c. If pt discharges after Thursday may need assist with [employer]i to [facility] terminal and taxi on [place] number. CORBIN Morales
[2020-06-24] MEDS: INSULIN ASPART 100 UNIT/ML INSULN PEN SUBCUT ×3 (12:17→21:08)
--- NOTE | 2020-06-24 15:12 | PT.IPTN ---
Current Diagnoses Other ascites (06/17/20) Physical Therapy Treatment Note M2 PT-IP Current Condition Start: 06/22/20 08:27 Freq: NEEDED Status: Active Protocol: Document 06/22/20 12:05 HH (Rec: 06/22/20 12:34 [id number]) Physical Therapy Current Condition Current Condition Evaluation Date 06/22/20 Treatment Diagnosis Anasarca, imbalanced electrolyte, peripheral edema, generalized weakness Onset Date 2 months ago Precautions Other Precautions activity order from dr. Glaser Activity-I would like patient up and around more than maybe actually promote more vigorous diuresis. I have consulted Physical therapy to see him and see if we can get him moving a bit more. He may not have specific skilled needs but I think an overall assessment is appropriate and an effort to get him up out of bed is entirely appropriate. Weight Bearing Status Weight Bearing Status Full Weight Bearing M3 PT-IP Subjective Start: 06/22/20 08:27 Freq: NEEDED Status: Active Protocol: Document 06/24/20 15:12 DLM (Rec: 06/24/20 15:45 DLM [id number]) Subjective Physical Therapy Visit Type Type Treatment Note Visit Start Time 14:45 Visit Stop Time 15:12 Total Visit Minutes 27 Number of MEDICAL DRIVER Visits 0 Physical Therapy Visit Comments Patient Comments He reports he is feeling better, still feels abdomen is very distended with fluid. He reports he does not fit in the wheelchair on the [facility] and will not be able to use it . Patient Goals He wants to return home Therapy Pain Assessment Pain When Pain Assessed During Mobility Pain Present Pain Present Denied Pain M4 PT-IP Mobility and Gait Start: 06/22/20 08:27 Freq: NEEDED Status: Active Protocol: Document 06/24/20 15:12 DLM (Rec: 06/24/20 15:45 DLM [id number]) PT-Bed Mobility Assessment Rolling Type of Rolling Roll to Right,Roll to Left Level of Assist Independent Supine to Sit Supine to Sit Independent,Bedrails Sit to Supine Sit to Supine Independent Scooting Scooting to Edge of Bed Independent Scooting Up and Down in Bed Independent PT-Transfer Assessment Sit to and From Stand Sit to and from Stand Independent Equipment Transfer Assistive Device None Transfers Transfer Destination Bed Transfer Technique Stand Step Pivot Transfer Ability Level of Assist Independent Gait Assessment Gait Gait Assistance Required: Standby Assistance Distance (Feet) 500 Assistive Devices Assistive Device None Gait Deviations General Gait Pattern Wide Based Gait Factors Limiting Gait Function Factors Limiting Gait Function Decreased Activity Tolerance Comments Gait Comments mild shortness of breath with gait, pt declines use of gait belt feeling he does not need it PT-Balance Assessment Sitting Balance and Reactions Static Sitting Balance Ability Normal Dynamic Sitting Balance Ability Normal Standing Balance and Reactions Static Standing Balance Ability Normal Dynamic Standing Balance Ability Good Device Used none M5 PT-IP Objective Assessments Start: 06/22/20 08:27 Freq: NEEDED Status: Active Protocol: Document 06/22/20 12:05 (Rec: 06/22/20 13:06 HH [id number]) Orientation Orientation/Cognition Level of Alertness Alert Orientation Name,Age,Birthday,Month,Date, Year,Day of Week,Place, Situation Language Function Ability No Deficits Noted Safety Awareness Understands Safety Issues Memory Description No Deficits Noted Gross Range of Motion Upper Extremity ROM Assessment Within Functional Limits Lower Extremity ROM Assessment Within Functional Limits Strength Upper Extremity Strength Assessment Within Functional Limits Lower Extremity Strength Assessment Within Functional Limits Coordination Assessment Gross Coordination Gross Coordination WNL Sensation Assessment Sensation Gross Sensation WNL Muscle Tone Muscle Tone WNL Yes Other Assessments Other Other Assessments pitting edema noted from chest down abdomen= severely distented with 2+ pitting edema LEs = grossly 2 to 3+ pitting edema, worse on B thighs. M6 PT-IP Treatment Start: 06/22/20 08:27 Freq: NEEDED Status: Active Protocol: Document 06/24/20 15:12 DLM (Rec: 06/24/20 15:45 DLM [id number]) Physical Therapy Treatment Education Education Provided Safety M7 PT-IP Assessment and Plan Start: 06/22/20 08:27 Freq: NEEDED Status: Active Protocol: Document 06/24/20 15:12 DLM (Rec: 06/24/20 15:45 DLM [id number]) PT Summary Assessment and Plan Summary Impairments Gait,Activity Tolerance Progress Towards Goals Progressing Toward Goals Assessment Summary He is progressing well with his mobility and activity tolerance. He has increased his distances of gait. He gets mild shortness of breath during gait but did not need to stop to manage/recover during gait. He needs encouragement to get out of his room and take longer walks . Discussed pt taking the ferry home and voiced concern about pt walking the long distances and ramps to get on/ off the ferry. Pt reports he does not fit in the wheelchairs [place] the [place]. Due to COVID he does not have anyone who can come pick him up. His can not drive. 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 Goals Bed Mobility Goal Independent Transfer Goal Independent Gait Goal Independent Gait Distance 500 Other Goals Independent up and down 5 steps with bilateral rails Days to Meet Goals 2 Frequency of Treatment Frequency Of Treatment Once a Day Treatment Plan Physical Therapy Treatment Plan Gait Training,Therapeutic Exercise,Discharge Planning, Neuromuscular Re-ed Recommendations To Nursing Amount of Assist Needed Standby Assistance Discharge Recommendations PT Discharge Recommendations Home Transportation Needs at Discharge Private Vehicle
[2020-06-24] MEDS: OXYCODONE IR 10 MG TABLET PO ×2 (16:15→23:45)
[2020-06-24] MEDS: MELATONIN 3 MG TABLET 10 MG PO (20:56)
[2020-06-24] MEDS: diphenhydrAMINE 25 MG TABLET PO (20:57)
[2020-06-24] MEDS: INSULIN GLARGINE 100 UNIT/ML 3ML PEN 40 UNIT SUBCUT (20:59)
--- NOTE | 2020-06-24 21:43 | PC.NURSE ---
Pt independent in room. HL remains intact/patent. CBG AC = 165. no coverage required. CBG HS = 203; recieved Lantus 40u & novlog 20u as per orders. Pt had shower this evening w/o incidence. Call light w/in reach, pt calls appropriately for needs. Continue w/plkan of care
[2020-06-24] MEDS: LORazepam 2 MG/ML INJ 0.5 MG IV (23:45)
[2020-06-25] VITALS (7 sets, daily range): BP systolic 104–129; BP diastolic 38–54; PULSE 64–81; RESP 16–24; TEMP 36.6–36.9; O2SAT 90–96
--- NOTE | 2020-06-25 01:00 | PC.NURSE ---
2310 Received safe hand-off report. The patient is lying on his right side in bed, alert and oriented x4. He is on room air, has a left forearm PIV that is saline locked and expires today but is still patent and flushing. BLE are 1+, non-pitting edema, and abdomen is distended/large. He c/o pain 7/10 in diaphragm and states, I've been forgetting to tell the doctors ever since I've arrived that I've had a numbness right here, the patient points just left of his sternum and above diaphragm, stating this numbness has been unchanged and it's been going on since before he arrived. Lung nolan are clear/diminished throughout, and heart sounds are normal. Denies chest pain. No s/sx of distress. Will continue to monitor.
[2020-06-25 06:07] LABS: Add Manual Diff / Slide Review NO; Basophils Absolute Auto 0 /uL (0-100); Basophils Percent Auto 0.8 % (0-2); Eosinophils Absolute Auto 100 /uL (0-450); Eosinophils Percent Auto 4.5 % (2-4); Lymphocytes Absolute Auto 600 /uL (1100-4500); Lymphocytes Percent Auto 19.8 % (25-40); Mean Corpuscular HGB Conc 32.5 % (30-36); Mean Corpuscular Hemoglobin 25.6 PG (26-34); Mean Corpuscular Volume 78.8 fL (80-100); Monocytes Absolute Auto 400 /uL (0-900); Monocytes Percent Auto 13.4 % (3-14); Neutrophils Absolute Auto 1700 /uL (1500-7000); Neutrophils Percent Auto 61.5 % (50-75); Platelet Count 81 X10^3/uL (150-400); Red Blood Cell Count 4.32 X10^6/uL (4.5-5.9); Red Cell Distribution Width 16.8 % (11.6-14.8); White Blood Cell Count 2.8 X10^3/uL (4.5-11.0)
[2020-06-25 06:20] LABS: BUN Creatinine Ratio 21.3 (6-22); Blood Urea Nitrogen 20 mg/dL (9-20); Calcium 8.6 mg/dL (8.4-10.2); Chloride 95 mmol/L (98-107); Estimated Glomerular Filt Rate > 60.0 mL/min (>60); Glucose 145 mg/dL (80-110); HEMOLYSIS < 15 (0-50); Potassium 3.9 mmol/L (3.4-5.1); Sodium 134 mmol/L (137-145)
[2020-06-25 06:31] LABS: Carbon Dioxide 44 mmol/L (22-32)
[2020-06-25] MEDS: FUROSEMIDE 100 MG/10 ML VIAL 60 MG IV (06:51)
--- NOTE | 2020-06-25 08:26 | P.PN_ITS ---
Subjective Subjective Date Patient Seen: 06/25/20 Time Patient Seen: 08:26 Interval history: Patient had an uneventful weekend. Continues with good diuresis of about 5 L of urine per day. Weights have been fairly inaccurate I believe. Bed scales are notoriously inaccurate Had some issues with some urinary incontinence this morning for the 1st time Exam Vital Signs (past 8 hours): - 06/25/20 06:45 06/25/20 08:00 Temperature 98.4 F Pulse Rate 74 74 Respiratory Rate 24 18 Blood Pressure 118/47 L 129/54 L Pulse Oximetry 92 93 Oxygen Delivery Method Room Air Oxygen Flow Rate 0 Objective Labs Result Diagrams: 06/25/20 05:44 06/25/20 05:44 Labs: Laboratory Results - last 24 hr 06/25/20 06/25/20 05:44 05:44 WBC 2.8 L RBC 4.32 L Hgb 11.0 L Hct 34.0 L MCV 78.8 L MCH 25.6 L MCHC 32.5 RDW 16.8 H Plt Count 81 L Neut % (Auto) 61.5 Lymph % (Auto) 19.8 L [place] % (Auto) 13.4 Eos % (Auto) 4.5 H Baso % (Auto) 0.8 Neut # (Auto) 1700 Lymph # (Auto) 600 L [place] # (Auto) 400 Eos # (Auto) 100 Baso # (Auto) 0 Sodium 134 L Potassium 3.9 Chloride 95 L Carbon Dioxide 44 H* BUN 20 Creatinine 0.94 Estimated GFR > 60.0 BUN/Creatinine Ratio 21.3 Glucose 145 H Calcium 8.6 PFSH Medical History Calculus of gallbladder and bile duct w/o cholecystitis or obstruction Cataracts, bilateral Cirrhosis, non-alcoholic Class 2 obesity Diabetes type 2, controlled Diabetic polyneuropathy Diastasis recti Hepatocellular carcinoma Hypertension Iron deficiency anemia Major depression in remission Microalbuminuria due to type 2 diabetes mellitus RICARDO (obstructive sleep apnea) Thoracic radiculitis Thrombocytopenia 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 Anasarca-continue with diuresis. I am going to switch him from IV furosemide to oral furosemide and try and find an equivalent dose that will continue to diurese him between 3-1/2 in 5 L per day. Continue to monitor electrolytes. Potassium this morning is still okay. If I can get to a stable dose oral diuretics and oral potassium replacement then I think he can likely be discharged home to continue this process as an outpatient. This is likely going to take 2 or 3 months to completely get him diuresed down to whatever his normal is. 2. Diabetes-blood sugar numbers are probably acceptable. No changes today. 3. BPH with urinary incontinence-I will add tamsulosin to his regimen 4. Thrombocytopenia-patient's platelet count has been up and down but overall relatively stable. Today's number is roughly equivalent to what was upon admission. Therefore okay to continue with Lovenox for VTE prophylaxis Note: Greater than 20 minutes was spent evaluating the patient on the floor, including examining the patient, discussing clinical course with clinical and nursing staff, reviewing clinical course in the computer, preparing documentation and writing orders for continued management of care, discussing status with family as appropriate, reviewing plans for the next 24 hours with both patient/family and nursing staff as appropriate.
[2020-06-25] MEDS: CALCIUM CARBONATE 500 MG TAB 1000 MG PO ×2 (09:17→14:52)
[2020-06-25] MEDS: OXYCODONE IR 5 MG TABLET PO (09:18)
[2020-06-25] MEDS: ENOXAPARIN 40 MG/0.4 ML SYRINGE SUBCUT ×2 (09:18→21:09)
[2020-06-25] MEDS: TAMSULOSIN 0.4 MG CAPSULE PO (09:18)
[2020-06-25] MEDS: POTASSIUM CHLORIDE 20 MEQ TAB PO ×3 (09:18→17:12)
[2020-06-25] MEDS: METFORMIN HCL 500 MG TABLET PO ×2 (09:18→17:13)
[2020-06-25] MEDS: DOCUSATE 100 MG CAPSULE PO ×2 (09:18→21:10)
[2020-06-25] MEDS: SPIRONOLACTONE 25 MG TABLET 100 MG PO ×2 (09:18→17:13)
[2020-06-25] MEDS: MAGNESIUM OXIDE 400 MG TABLET PO (09:18)
--- NOTE | 2020-06-25 09:19 | PT.IPTN ---
Current Diagnoses Other ascites (06/17/20) Physical Therapy Treatment Note M2 PT-IP Current Condition Start: 06/22/20 08:27 Freq: NEEDED Status: Active Protocol: Document 06/22/20 12:05 HH (Rec: 06/22/20 12:34 HH [id number]) Physical Therapy Current Condition Current Condition Evaluation Date 06/22/20 Treatment Diagnosis Anasarca, imbalanced electrolyte, peripheral edema, generalized weakness Onset Date 2 months ago Precautions Other Precautions activity order from dr. Glaser Activity-I would like patient up and around more than maybe actually promote more vigorous diuresis. I have consulted Physical therapy to see him and see if we can get him moving a bit more. He may not have specific skilled needs but I think an overall assessment is appropriate and an effort to get him up out of bed is entirely appropriate. Weight Bearing Status Weight Bearing Status Full Weight Bearing M3 PT-IP Subjective Start: 06/22/20 08:27 Freq: NEEDED Status: Active Protocol: Document 06/25/20 08:45 MB (Rec: 06/25/20 09:19 MB [id number]) Subjective Physical Therapy Visit Type Type Treatment Note Visit Start Time 08:45 Visit Stop Time 09:00 Total Visit Minutes 15 Number of INSPECTOR CASING Visits 0 Physical Therapy Visit Comments Patient Comments I'm okay. Pt reports ongoing 6/10 pain in abdomen, ribs and calves from anasarca Therapy Pain Assessment Pain When Pain Assessed At Rest Pain Present Pain Present Pain Reported Location Abdomen, ribs and calves Intensity 6 Pain Management Techniques Re-positioning M4 PT-IP Mobility and Gait Start: 06/22/20 08:27 Freq: NEEDED Status: Active Protocol: Document 06/24/20 15:12 DLM (Rec: 06/24/20 15:45 DLM [id number]) PT-Bed Mobility Assessment Rolling Type of Rolling Roll to Right,Roll to Left Level of Assist Independent Supine to Sit Supine to Sit Independent,Bedrails Sit to Supine Sit to Supine Independent Scooting Scooting to Edge of Bed Independent Scooting Up and Down in Bed Independent PT-Transfer Assessment Sit to and From Stand Sit to and from Stand Independent Equipment Transfer Assistive Device None Transfers Transfer Destination Bed Transfer Technique Stand Step Pivot Transfer Ability Level of Assist Independent Gait Assessment Gait Gait Assistance Required: Standby Assistance Distance (Feet) 500 Assistive Devices Assistive Device None Gait Deviations General Gait Pattern Wide Based Gait Factors Limiting Gait Function Factors Limiting Gait Function Decreased Activity Tolerance Comments Gait Comments mild shortness of breath with gait, pt declines use of gait belt feeling he does not need it PT-Balance Assessment Sitting Balance and Reactions Static Sitting Balance Ability Normal Dynamic Sitting Balance Ability Normal Standing Balance and Reactions Static Standing Balance Ability Normal Dynamic Standing Balance Ability Good Device Used none M5 PT-IP Objective Assessments Start: 06/22/20 08:27 Freq: NEEDED Status: Active Protocol: Document 06/22/20 12:05 (Rec: 06/22/20 13:06 [id number]) Orientation Orientation/Cognition Level of Alertness Alert Orientation Name,Age,Birthday,Month,Date, Year,Day of Week,Place, Situation Language Function Ability No Deficits Noted Safety Awareness Understands Safety Issues Memory Description No Deficits Noted Gross Range of Motion Upper Extremity ROM Assessment Within Functional Limits Lower Extremity ROM Assessment Within Functional Limits Strength Upper Extremity Strength Assessment Within Functional Limits Lower Extremity Strength Assessment Within Functional Limits Coordination Assessment Gross Coordination Gross Coordination WNL Sensation Assessment Sensation Gross Sensation WNL Muscle Tone Muscle Tone WNL Yes Other Assessments Other Other Assessments pitting edema noted from chest down abdomen= severely distented with 2+ pitting edema LEs = grossly 2 to 3+ pitting edema, worse on B thighs. M6 PT-IP Treatment Start: 06/22/20 08:27 Freq: NEEDED Status: Active Protocol: Document 06/25/20 08:45 MB (Rec: 06/25/20 09:19 MB [id number]) Physical Therapy Treatment Other Treatments Other Treatment Performed Bed mobility mod I with HOB increased and use of one rail. Transfers sit to stand from bed x2 I. Superv and then I gait training in hallway 500' x1 and 250'x1, superv and then superv to mod I to ascend and descend 3 steps with both rails (x2). Nsg clears pt to not have bed alarm and nsg and pt agree to d/c PT and pt to be up ambulating in the hallway with nsg superv during the day. No further acute PT needs. M7 PT-IP Assessment and Plan Start: 06/22/20 08:27 Freq: NEEDED Status: Active Protocol: Document 06/25/20 08:45 MB (Rec: 06/25/20 09:19 MB [id number]) PT Summary Assessment and Plan Summary Progress Towards Goals Goals Met Assessment Summary Pt has met acute care PT goals , walks in hallway with superv and then I and ascend and descend three steps x2 with rails today. Recommend up walking with nsg superv or nsg clearance 3-4 times a day and spoke with nsg about d/cing PT. Pt's O2 sats on RA at rest are 89% and decrease to 86% with activity. His HRV is 86 BPM at rest and increases to 93 BPM with gait. Will d/c acute PT. Goals Bed Mobility Goal Independent Transfer Goal Independent Gait Goal Independent Gait Distance 500 Other Goals Independent up and down 5 steps with bilateral rails Frequency of Treatment Frequency Of Treatment Discharge Treatment Plan Other Recommendations and Next Treatment Goals met Focus Discharge Recommendations PT Discharge Recommendations Home Other Discharge Recommendations Family assist as needed Transportation Needs at Discharge Private Vehicle
[2020-06-25] MEDS: INSULIN ASPART 100 UNIT/ML INSULN PEN SUBCUT ×3 (09:21→17:01)
[2020-06-25] MEDS: FUROSEMIDE 40 MG TABLET 100 MG PO ×2 (09:24→17:12)
[2020-06-25] MEDS: SODIUM CHLORIDE 0.9% FLUSH 10 ML IV ×2 (09:27→22:37)
[2020-06-25] MEDS: OXYCODONE IR 10 MG TABLET PO (20:06)
[2020-06-25] MEDS: MELATONIN 3 MG TABLET 10 MG PO (21:09)
[2020-06-25] MEDS: INSULIN GLARGINE 100 UNIT/ML 3ML PEN 40 UNIT SUBCUT (21:11)
--- NOTE | 2020-06-25 21:34 | PC.NURSE ---
Pt independent in room. SpO2 96% RA. Abd round,, recieving lasix as per orders. AC CBG = 236; 4u S/S coverage given. HS CBG = 178, no S/S required. received ususal dose Lantus 40u @ [facility] @ 2009 for discomfort w/good relief. Call light w/in reach, pt calls appropriately for needs.
[2020-06-26] MEDS: SODIUM CHLORIDE 0.9% FLUSH 10 ML IV ×2 (00:01→09:58)
[2020-06-26] MEDS: LORazepam 2 MG/ML INJ 0.5 MG IV (00:09)
--- NOTE | 2020-06-26 03:00 | PC.NURSE ---
Addendum entered by Gloria Win R.N. 06/26/20 06:19: weight down an additional 2kg which is expected result due to diuresis Original Note: 0010 Patient is alert and oriented. Breath sounds diminished but CTA with RA sat of 92%. HRR. Denies nausea. BT present but hypoactive. Voiding good amounts urine; denies dysuria, frequency or urgency. Independent with mobility. Edema present in bilateral LE, penis and abdomen but patient states it has improved since first admitted. Complains of pain across diaphragm but too early to give Oxycodone so patient requested/medicated with Ativan. Chronic bilateral LE/foot neuropathy. Refuses SCD's so reminded to ankle wave when awake. Fall risk score is moderate; patient is steady on feet, denies weakness or dizziness, so bed alarm not being used at this time.
[2020-06-26 05:48] LABS: BUN Creatinine Ratio 19.6 (6-22); Blood Urea Nitrogen 19 mg/dL (9-20); Calcium 8.4 mg/dL (8.4-10.2); Chloride 96 mmol/L (98-107); Estimated Glomerular Filt Rate > 60.0 mL/min (>60); Glucose 144 mg/dL (80-110); HEMOLYSIS < 15 (0-50); Magnesium 1.8 mg/dL (1.6-2.3); Potassium 3.9 mmol/L (3.4-5.1); Sodium 133 mmol/L (137-145)
[2020-06-26 05:56] LABS: Carbon Dioxide 40 mmol/L (22-32)
--- NOTE | 2020-06-26 08:11 | P.DS_ITS ---
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 He states that Dr. GUERIN and Dr. Glaser had encouraged him to go to the hospital approximately 10 days ago but he was not able to because he was caring for his who has shingles affecting her face. He was able to come today so he presented to the ER stating that he needed his electrolytes checked. In the emergency department he was fou nd to be visibly dyspneic although O2 sats 94% on room air and chest x-ray showing no significant abnormalities but was found to have anasarca with moderate amount of ascites on abdominal ultrasound. It was felt that he needed to be admitted for aggressive IV diuresis and electrolyte replacement and close monitoring for electrolyte abnormalities. The patient states that he has been battling severe swelling of his bilateral legs scrotum and abdomen for over the last month he saw Dr. Wyman regarding his hepatocellular carcinoma on May 31, 2020 and I reviewed that note. His last MRI liver protocol was done showing no evidence of recurrent hepatocellular carcinoma. His RFA was done 04/05/2015 shortly after he was diagnosed with hepatocellular carcinoma. He then had a repeat RFA 08/14/2015 and again June 2016. He has not shown recurrence of his hepatocellular carcinoma since then. Dr. Wyman did not feel that hepatocellular cellular carcinoma nor the cirrhosis for the etiology for his lower extremity edema and anasarca. Apparently he has recently had biopsies of his skin suspicious for mycosis fungoides. He saw Dr. Glaser June 11 and ask that point he was having severe hypokalemia at 2.52.4 and he was replaced with oral potassium in at that time they changed him from metallic zone 2 furosemide and spironolactone however there was a mixup with the pharmacy he did get not get the spironolactone. He has gained approximately 5-10 lb since June 11. He states he has been urinating a lot more. He does not feel his breathlessness his exertional dyspnea his abdominal pain has abdominal swelling or the weeping from his belly button has changed in the last 4 weeks but perhaps is more severe over the last week. He has been at home on [address] has been cooking dinner and as he describes functional. However he is having difficulty where if he falls he is n ot able to get him up because his weight is so much she is not able to push himself up. He is having increasing mobility issues due to his abdominal swelling tightness and the pain associated with that. He has had cardiac workup including an echo which showed normal left ventricular function. It is not felt that he has cardiac etiology for his edema. He has seen Dr. Moe at [facility] as well and I do not have these notes available to me {from Dr. Mart's H&P 06/16/20} Discharge Providers Provider Date of admission: 06/17/20 15:49 Discharge Date: 06/26/20 Primary care physician: Christian Glaser MD Consults: 06/18/20 08:09 Consult to Respiratory Therapy Evaluate & Treat Comment: Physician Instructions: Evaluate and treat 06/22/20 06:58 Consult to Physical Therapy Evaluate & Treat Comment: Physician Instructions: Evaluate and Treat 06/23/20 13:51 Consult to Occupational Therapy Evaluate & Treat Comment: Physician Instructions: Evaluate and treat Discharge provider: Christian Glaser MD Summary Hospital Course Discharge Diagnosis: 1. Anasarca of unknown etiology 2. Cirrhosis on the basis of hepatocellular carcinoma and prior non alcoholic liver disease 3. Hepatocellular carcinoma, not acute this visit 4. Type 2 diabetes on insulin 5. Obstructive sleep apnea, untreated 6. Hypokalemia, acute 7. Thrombocytopenia on the basis of liver disease as above Hospital Course: Patient was admitted to the hospital because of his overall anasarca and weeping of fluid through his skin. Also had some profound electrolyte abnormalities due to attempts at outpatient diuresis in the hospital he was given parental diuretics and as well as parental electrolyte replacement and his electrolytes and renal function monitored carefully. Diuretics were titrated to achieve approximately 0780-3550 cc of urine per day, and in the and patient appears to have had approximately 44,000 cc of urine production during his hospital stay. Electrolytes were monitored carefully and patient achieve stability with his potassium and electrolytes with oral replacement therapy. Patient's parental diuretics were subsequently switched to all oral diuretics and with this he continued to maintain adequate urine output and his electrolytes remained normal. In addition patient is physical exam suggested significant reduction in his edema. His overall anasarca up into his abdomen was much improved although certainly not absent at time of discharge. His lower extremity edema was much improved although again not absent at time of discharge Patient reported being able to be up and around much more readily with still short of breath had difficulty bending over etcetera but was much improved compared is status upon admission Patient's diabetes was adequately controlled with insulin and his oral meds with occasional doses of coverage insulin as well. Patient followed a carbohydrate consistent diet here in the hospital Patient was treated with Lovenox for VTE prophylaxis and his platelet count was monitored carefully. There is no substantial change in his platelet count overall. His thrombocytopenia is clearly chronic related to his chronic liver disease On day of discharge patient been stable on oral diuretic therapy in oral electrolyte replacement with persistence of urine output for greater than 24 hours. Was felt as though he was stable for discharge home to continue diuresis as an outpatient. Part of the complicating factor for this patient is that he resides on [facility] where healthcare somewhat more limited [facility] were sent to the pharmacy on [facility] at patient's request and this was discussed with patient as well In addition patient was started on tamsulosin in effort to help with some evid ence of lower urinary tract issues/bladder outlet issues with his increased diuresis. Patient felt like this was an improvement this will be continued upon discharge as well Status at Discharge Cognitive/behavioral status at discharge: at baseline, oriented Functional status at discharge: independent ambulation Overall status at discharge: patient is progressing back to baseline Time Spent with Patient Time spent: Greater than 30 minutes Exam Vital Signs (past 8 hours): Oxygen Delivery Method Room Air Oxygen Flow Rate 0 Objective Labs Result Diagrams: 06/25/20 05:44 06/26/20 05:26 Labs: Laboratory Results - last 24 hr 06/26/20 05:26 Sodium 133 L Potassium 3.9 Chloride 96 L Carbon Dioxide 40 H* BUN 19 Creatinine 0.97 Estimated GFR > 60.0 BUN/Creatinine Ratio 19.6 Glucose 144 H Calcium 8.4 Magnesium 1.8 [facility] Medical History Calculus of gallbladder and bile duct w/o cholecystitis or obstruction Cataracts, bilateral Cirrhosis, non-alcoholic Class 2 obesity Diabetes type 2, controlled Diabetic polyneuropathy Diastasis recti Hepatocellular carcinoma Hypertension Iron deficiency anemia Major depression in remission Microalbuminuria due to type 2 diabetes mellitus RICARDO (obstructive sleep apnea) Thoracic radiculitis Thrombocytopenia 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 Surgical History History of benign tracheal tumor History of umbilical hernia repair Social History household members: spouse Smoking Status: Never smoker alcohol intake: former Discharge Plan Discharge Plan Patient Disposition: Home Discharge orders & Medications Prescriptions: New furosemide 80 mg tablet 80 mg PO BID Qty: 180 RF: 3 furosemide 20 mg tablet 20 mg PO BID Qty: 180 RF: 3 potassium chloride [Klor-Con M20] 20 mEq Tablet,Er Particles/Crystals 20 meq PO TIDWM Qty: 270 RF: 3 magnesium oxide 400 mg (241.3 mg magnesium) Tablet 400 mg PO DAILY Qty: 90 RF: 3 tamsulosin [Flomax] 0.4 mg Capsule 0.4 mg PO DAILY Qty: 90 RF: 3 spironolactone 100 mg tablet 100 mg PO BID Qty: 180 RF: 3 spironolactone 100 mg tablet 100 mg PO BID Qty: 180 RF: 3 Continued insulin lispro 100 unit/mL solution 50 unit SUBCUT BID RF: 0 metformin 500 mg tablet 500 mg PO BID RF: 0 insulin glargine 100 unit/mL solution 50 units subcut QPM RF: 0 diphenhydramine HCl [Benadryl] 25 mg Capsule 1 cap PO QPM PRN (Reason: Sleep) RF: 0 pioglitazone 30 mg tablet 30 mg PO DAILY RF: 0 multivitamin Tablet 1 tab PO DAILY RF: 0 ascorbic acid (vitamin C) 250 mg Tablet 500 mg PO DAILY RF: 0 melatonin 5 mg Tablet 10 mg PO BEDTIME PRN (Reason: Sleep) RF: 0 Discontinued furosemide [Lasix] 40 mg tablet 40 mg PO DAILY Qty: 90 RF: 1 spironolactone 50 mg tablet 50 mg PO BID Qty: 60 RF: 3 potassium chloride 20 mEq tablet extended release 60 meq PO BID Qty: 180 RF: 5 magnesium 250 mg Tablet 250 mg PO DAILY RF: 0 Follow up/Referrals: Christian Glaser MD [Primary Care Provider] - 2 Weeks Discharge Health Status Multidrug resistant organism: No MDRO Diet/Activity/Treatments Diet: Carb-consistent/Diabetic Discharge Data Primary Care Provider: Christian Glaser
[2020-06-26 08:25] VITALS: BP 112/70; PULSE 82; RESP 18; O2SAT 92
[2020-06-26] MEDS: FUROSEMIDE 40 MG TABLET 100 MG PO (08:30)
[2020-06-26] MEDS: SPIRONOLACTONE 25 MG TABLET 100 MG PO (08:37)
[2020-06-26] MEDS: DOCUSATE 100 MG CAPSULE PO (08:38)
[2020-06-26] MEDS: POTASSIUM CHLORIDE 20 MEQ TAB PO ×2 (08:38→12:06)
[2020-06-26] MEDS: MAGNESIUM OXIDE 400 MG TABLET PO (08:38)
[2020-06-26] MEDS: METFORMIN HCL 500 MG TABLET PO (08:38)
[2020-06-26] MEDS: TAMSULOSIN 0.4 MG CAPSULE PO (08:38)
[2020-06-26] MEDS: ENOXAPARIN 40 MG/0.4 ML SYRINGE SUBCUT (08:39)
[2020-06-26 09:08] VITALS: O2SAT 92
[2020-06-26 10:34] VITALS: TEMP 36.7
[2020-06-26 11:51] VITALS: BP 132/57; PULSE 82; RESP 18; TEMP 36.7
[2020-06-26] MEDS: INSULIN ASPART 100 UNIT/ML INSULN PEN SUBCUT (12:06)
--- NOTE | 2020-06-26 14:57 | PC.NURSE ---
Patient discharged w/ all teachings about medications, ss of infection, ss of stroke, activity. Patient given handouts and told about new medications and doses. Patient wanted to argue with me about the semantics of my wording, he had a hard time listening to what I was saying and preferred to argue. I tried to calm the situation, there may have been some barriers to adequate discharge teaching. Patient left facility via private vehicle with family to [facility] with all belongings and belongings removed from the safe.
--- NOTE | 2020-06-26 15:36 | CM.DPC ---
DCP Con't: [employer] Student met with patient who was alert, oriented and sitting at bedside. Discussed plans for D/C transportation with patient to assist with coordination. Patient reported he would like Soha to pick him up at [facility]. Called Soha and she [place] in [place] at 145pm. Informed nursing staff of approximate time will be here to pick-up patient. There where no indications or orders for Home Health CORBIN Gómez MSW Student
== END 2020-06-26 14:30 | disposition home or self-care (01) | DRG 948 ==
LOC: ED 18:18 → AC 18:26
PROVIDERS: Family Medicine; Admitting Provider Internal Medicine; Emergency Provider Emergency Medicine; PCP Internal Medicine; Visit Provider Internal Medicine
DX: R60.1 Generalized edema (principal); K76.6 Portal hypertension; I85.10 Secondary esophageal varices without bleeding; Z68.42 Body mass index [BMI] 45.0-49.9, adult; M62.82 Rhabdomyolysis; E87.4 Mixed disorder of acid-base balance; D69.59 Other secondary thrombocytopenia; K74.69 Other cirrhosis of liver; K75.81 Nonalcoholic steatohepatitis (NASH); E87.6 Hypokalemia; E66.01 Morbid (severe) obesity due to excess calories; E83.42 Hypomagnesemia; I10 Essential (primary) hypertension; D50.9 Iron deficiency anemia, unspecified; R06.89 Other abnormalities of breathing; N40.1 Benign prostatic hyperplasia with lower urinary tract symptoms; N39.498 Other specified urinary incontinence; E11.9 Type 2 diabetes mellitus without complications; Z85.05 Personal history of malignant neoplasm of liver; G47.33 Obstructive sleep apnea (adult) (pediatric); Z20.822 Contact with and (suspected) exposure to COVID-19; Z79.4 Long term (current) use of insulin
CPT/HCPCS: 36415; 36600; 71045; 76705; 80048; 80053; 81003; 81015; 82550; 82553; 82805; 82962; 83690; 83735; 83880; 84484; 85025; 85610; 85730; 86900; 86901; 87635; 93005; 93970; 94150; 94640; 94760; 94762; 96365; 96375; 97116; 97162; 97530; 99232; 99233; 99239; 99283; 99284; C9803; G0378; A9270; C9113; J1650; J1940; J2060; J3480

== ENCOUNTER → 2020-07-17 15:16 | Outpatient (CLI) | payer MEDICARE, SELFPAY ==
[2020-06-17 00:54] VITALS: BMI 47.0
[2020-07-17 16:33] LABS: Ammonia (NH3) 44 umol/L (9-30)
[2020-07-17 18:12] LABS: Alanine Aminotransferase 44 IU/L (<50); Albumin 3.4 g/dL (3.5-5.0); Albumin Globulin Ratio 1.3 (1.0-2.8); Alkaline Phosphatase 79 U/L (38-126); Aspartate Aminotransferase 59 IU/L (17-59); BUN Creatinine Ratio 30.3 (6-22); Bilirubin Total 0.7 mg/dL (0.2-1.3); Blood Urea Nitrogen 30 mg/dL (9-20); Calcium 9.8 mg/dL (8.4-10.2); Carbon Dioxide 30 mmol/L (22-32); Chloride 99 mmol/L (98-107); Estimated Glomerular Filt Rate > 60.0 mL/min (>60); Globulin 2.6 g/dL (1.7-4.1); Glucose 165 mg/dL (80-110); HEMOLYSIS < 15 (0-50); Magnesium 2.4 mg/dL (1.6-2.3); Potassium 4.4 mmol/L (3.4-5.1); Sodium 132 mmol/L (137-145)
== END ==
PROVIDERS: PCP Internal Medicine; Referring Provider Internal Medicine; Visit Provider Internal Medicine
DX: C22.0 Liver cell carcinoma (principal); E87.6 Hypokalemia; R60.1 Generalized edema
CPT/HCPCS: 36415; 80053; 82140; 83735

== ENCOUNTER → 2020-08-14 15:37 | Outpatient (CLI) | payer MEDICARE, SELFPAY ==
[2020-06-17 00:54] VITALS: BMI 47.0
[2020-08-14 16:12] LABS: INR 1.3 (0.9-1.3); Prothrombin Time 14.3 SECONDS (10.1-12.7)
[2020-08-14 16:17] LABS: Add Manual Diff / Slide Review NO; Basophils Absolute Auto 0 /uL (0-100); Basophils Percent Auto 0.1 % (0-2); Eosinophils Absolute Auto 100 /uL (0-450); Eosinophils Percent Auto 2.2 % (2-4); Hematocrit 39.2 % (41-53); Hemoglobin 12.6 g/dL (13.5-17.5); Lymphocytes Absolute Auto 500 /uL (1100-4500); Lymphocytes Percent Auto 15.7 % (25-40); Mean Corpuscular HGB Conc 32.1 % (30-36); Mean Corpuscular Hemoglobin 25.2 PG (26-34); Mean Corpuscular Volume 78.7 fL (80-100); Monocytes Absolute Auto 300 /uL (0-900); Monocytes Percent Auto 9.8 % (3-14); Neutrophils Absolute Auto 2100 /uL (1500-7000); Neutrophils Percent Auto 72.2 % (50-75); Platelet Count 82 X10^3/uL (150-400); Red Blood Cell Count 4.98 X10^6/uL (4.5-5.9); Red Cell Distribution Width 19.6 % (11.6-14.8); White Blood Cell Count 2.9 X10^3/uL (4.5-11.0)
[2020-08-14 16:24] LABS: Alanine Aminotransferase 42 IU/L (<50); Albumin 3.4 g/dL (3.5-5.0); Albumin Globulin Ratio 1.3 (1.0-2.8); Alkaline Phosphatase 65 U/L (38-126); Aspartate Aminotransferase 59 IU/L (17-59); BUN Creatinine Ratio 23.2 (6-22); Bilirubin Total 0.8 mg/dL (0.2-1.3); Blood Urea Nitrogen 23 mg/dL (9-20); Calcium 9.5 mg/dL (8.4-10.2); Carbon Dioxide 27 mmol/L (22-32); Chloride 101 mmol/L (98-107); Estimated Glomerular Filt Rate > 60.0 mL/min (>60); Globulin 2.7 g/dL (1.7-4.1); Glucose 272 mg/dL (80-110); HEMOLYSIS < 15 (0-50); Potassium 4.9 mmol/L (3.4-5.1); Sodium 131 mmol/L (137-145); Total Protein 6.1 g/dL (6.3-8.2)
== END ==
PROVIDERS: PCP Internal Medicine; Referring Provider Internal Medicine Gastroenterology; Visit Provider Internal Medicine Gastroenterology
DX: K72.90 Hepatic failure, unspecified without coma (principal)
CPT/HCPCS: 36415; 80053; 85025; 85610

== ENCOUNTER → 2020-09-03 15:07 | Outpatient (CLI) | payer MEDICARE, SELFPAY ==
[2020-06-17 00:54] VITALS: BMI 47.0
[2020-09-03 16:13] LABS: Add Manual Diff / Slide Review NO; Basophils Absolute Auto 0 /uL (0-100); Basophils Percent Auto 0.4 % (0-2); Eosinophils Absolute Auto 100 /uL (0-450); Eosinophils Percent Auto 2.9 % (2-4); Hematocrit 39.4 % (41-53); Hemoglobin 13.3 g/dL (13.5-17.5); Lymphocytes Absolute Auto 600 /uL (1100-4500); Lymphocytes Percent Auto 14.9 % (25-40); Mean Corpuscular HGB Conc 33.8 % (30-36); Mean Corpuscular Hemoglobin 26.6 PG (26-34); Mean Corpuscular Volume 78.9 fL (80-100); Monocytes Absolute Auto 300 /uL (0-900); Monocytes Percent Auto 8.9 % (3-14); Neutrophils Absolute Auto 2900 /uL (1500-7000); Neutrophils Percent Auto 72.9 % (50-75); Platelet Count 66 X10^3/uL (150-400); Red Cell Distribution Width 20.5 % (11.6-14.8); White Blood Cell Count 3.9 X10^3/uL (4.5-11.0)
[2020-09-03 16:16] LABS: Alanine Aminotransferase 56 IU/L (<50); Albumin 3.6 g/dL (3.5-5.0); Albumin Globulin Ratio 1.3 (1.0-2.8); Alkaline Phosphatase 66 U/L (38-126); Aspartate Aminotransferase 70 IU/L (17-59); BUN Creatinine Ratio 26.5 (6-22); Bilirubin Total 0.9 mg/dL (0.2-1.3); Blood Urea Nitrogen 26 mg/dL (9-20); Carbon Dioxide 25 mmol/L (22-32); Chloride 100 mmol/L (98-107); Estimated Glomerular Filt Rate > 60.0 mL/min (>60); Globulin 2.7 g/dL (1.7-4.1); Glucose 114 mg/dL (80-110); HEMOLYSIS < 15 (0-50); Potassium 4.2 mmol/L (3.4-5.1); Sodium 131 mmol/L (137-145); Total Protein 6.3 g/dL (6.3-8.2)
[2020-09-03 16:25] LABS: INR 1.3 (0.9-1.3); Prothrombin Time 14.3 SECONDS (10.1-12.7)
[2020-09-03 17:03] LABS: Anisocytosis 2+; Hypochromasia 1+; Macrocytosis 1+; Microcytosis 1+; Platelet Estimate Decreased on smear
[2020-09-03 17:04] LABS: Dimorphic RBC PRESENT
[2020-09-03 17:22] LABS: Folate 13.4 ng/mL (2.76-20.0); Vitamin B12 646 pg/mL (239-931)
[2020-09-03 18:13] LABS: Ferritin 21 ng/mL (18-464)
== END ==
PROVIDERS: PCP Internal Medicine; Referring Provider Internal Medicine Gastroenterology; Visit Provider Internal Medicine Gastroenterology
DX: K74.60 Unspecified cirrhosis of liver
CPT/HCPCS: 36415; 80053; 82607; 82728; 82746; 85025; 85610

== ENCOUNTER → 2020-09-19 11:06 | Outpatient (CLI) | payer MEDICARE, SELFPAY ==
[2020-06-17 00:54] VITALS: BMI 47.0
[2020-09-19 19:07] LABS: HEMOLYSIS < 15 (0-50); Iron 49 ug/dL (49-181)
[2020-09-19 19:13] LABS: Add Manual Diff / Slide Review NO; Basophils Absolute Auto 0 /uL (0-100); Basophils Percent Auto 0.6 % (0-2); Eosinophils Absolute Auto 100 /uL (0-450); Eosinophils Percent Auto 2.5 % (2-4); Hemoglobin 13.7 g/dL (13.5-17.5); Lymphocytes Absolute Auto 600 /uL (1100-4500); Lymphocytes Percent Auto 18.9 % (25-40); Mean Corpuscular HGB Conc 33.5 % (30-36); Mean Corpuscular Volume 80.6 fL (80-100); Monocytes Absolute Auto 300 /uL (0-900); Monocytes Percent Auto 10.4 % (3-14); Neutrophils Absolute Auto 2200 /uL (1500-7000); Neutrophils Percent Auto 67.6 % (50-75); Platelet Count 64 X10^3/uL (150-400); Red Blood Cell Count 5.09 X10^6/uL (4.5-5.9); Red Cell Distribution Width 20.4 % (11.6-14.8); White Blood Cell Count 3.3 X10^3/uL (4.5-11.0)
[2020-09-19 19:14] LABS: Alanine Aminotransferase 155 IU/L (<50); Albumin 3.1 g/dL (3.5-5.0); Albumin Globulin Ratio 1.2 (1.0-2.8); Alkaline Phosphatase 75 U/L (38-126); Aspartate Aminotransferase 177 IU/L (17-59); Bilirubin Total 0.9 mg/dL (0.2-1.3); Blood Urea Nitrogen 20 mg/dL (9-20); Calcium 9.7 mg/dL (8.4-10.2); Carbon Dioxide 27 mmol/L (22-32); Chloride 102 mmol/L (98-107); Estimated Glomerular Filt Rate > 60.0 mL/min (>60); Globulin 2.6 g/dL (1.7-4.1); Glucose 99 mg/dL (80-110); HEMOLYSIS < 15 (0-50); Sodium 135 mmol/L (137-145); Total Protein 5.7 g/dL (6.3-8.2)
[2020-09-19 19:21] LABS: Percent Iron Saturation 13 % (20-50); Total Iron Binding Capacity 380 ug/dL (261-462); Transferrin 322 mg/dL (206-381)
[2020-09-19 19:40] LABS: Anisocytosis 1+
[2020-09-19 19:44] LABS: Ferritin 20 ng/mL (18-464)
[2020-09-20 22:07] LABS: Alpha Fetoprotein 2.8 ng/mL (0.0-8.3)
== END ==
PROVIDERS: Internal Medicine Gastroenterology; PCP Internal Medicine
DX: C22.0 Liver cell carcinoma (principal); K72.90 Hepatic failure, unspecified without coma; E11.29 Type 2 diabetes mellitus with other diabetic kidney complication; R80.9 Proteinuria, unspecified
CPT/HCPCS: 80053; 82105; 82728; 83540; 83550; 85025